=== PATIENT | male | born 1950 | race Caucasian/White ===

== ENCOUNTER 2017-02-14 10:46 | Day surgery (SDC) | payer OTHER, MEDICARE ==
[2017-02-14 11:28] LABS: ABSOLUTE BASOPHILS # (AUTO) 0.1 10^3/uL (0.0-0.2); ABSOLUTE EOSINOPHILS # (AUTO) 0.2 10^3/uL (0.0-0.6); ABSOLUTE LYMPHOCYTES (AUTO) 1.6 10^3/uL (0.5-4.7); ABSOLUTE MONOCYTES (AUTO) 0.6 10^3/uL (0.1-1.4); ABSOLUTE NEUT (AUTO) 2.7 10^3/uL (1.7-8.2); EOSINOPHILS % (AUTO) 3.2 % (0-6); HEMATOCRIT 42.9 % (37.9-51.0); HEMOGLOBIN 14.9 g/dL (13.5-17.0); HGB HCT DIFFERENCE 1.8; LYMPHOCYTES % (AUTO) 30.8 % (13-45); MEAN CORPUSCULAR HEMOGLOBIN 34.8 pg (27.0-33.4); MEAN CORPUSCULAR HGB CONC 34.7 g/dL (32.0-36.0); MEAN CORPUSCULAR VOLUME 100 fl (80-97); MONOCYTES % (AUTO) 11.3 % (3-13); RED BLOOD COUNT 4.27 10^6/uL (4.35-5.55); RED CELL DISTRIBUTION WIDTH 14.3 % (11.5-14.0); SEGMENTED NEUTROPHILS % (AUTO) 53.7 % (42-78); WHITE BLOOD COUNT 5.1 10^3/uL (4.0-10.5)
[2017-02-14 11:35] LABS: PROTHROMBIN TIME 13.1 SEC (11.4-15.4)
[2017-02-14 11:36] LABS: PARTIAL THROMBOPLASTIN TIME 34.4 SEC (23.5-35.8)
[2017-02-14 11:42] LABS: BLOOD UREA NITROGEN 10 mg/dL (7-20); CREATINE KINASE 77 U/L (55-170)
[2017-02-14 12:20] LABS: CREATININE RESULT 0.79 mg/dL (0.52-1.25)
[2017-02-14] MEDS ORDERED: MIDAZOLAM 2 MG/2 ML INJ ONE (13:29)
[2017-02-14] MEDS ORDERED: FENTANYL CITRATE INJ/PF 100 MCG/2 ML AMPUL ONE (13:29)
--- NOTE | 2017-02-14 14:38 | RADIOLOGY REPORT (SQ) ---
EXAM DESCRIPTION: CHEST SINGLE VIEW COMPLETED DATE/TIME: 02/14/2017 2:11 pm REASON FOR STUDY: POST LEFT LUNG BIOPSY COMPARISON: CT lung biopsy same date EXAM PARAMETERS: NUMBER OF VIEWS: One view. TECHNIQUE: Single frontal radiographic view of the chest acquired. RADIATION DOSE: NA LIMITATIONS: None. FINDINGS: LUNGS AND PLEURA: 6 cm left upper lobe mass is present. No pneumothorax immediately post left lung biopsy. Right lung well inflated and clear. No right or left pleural effusion. No acute infiltrates. MEDIASTINUM AND HILAR STRUCTURES: No masses. Contour normal. HEART AND VASCULAR STRUCTURES: Heart normal in size. Normal vasculature. BONES: No acute findings. HARDWARE: None in the chest. OTHER: No other significant finding. IMPRESSION: Immediate post left upper lobe mass CT-guided biopsy. No pneumothorax. TECHNICAL DOCUMENTATION: JOB ID: [id number]
--- NOTE | 2017-02-14 15:30 | RADIOLOGY REPORT (SQ) ---
EXAM DESCRIPTION: CT BIOPSY LUNG/MEDIASTINUM; CT NEEDLE PLACEMENT COMPLETED DATE/TIME: 02/14/2017 1:54 pm REASON FOR STUDY: ABNORMAL FINDING ON LUNG FIELD; LUNG BIOPSY R91.8 OTHER NONSPECIFIC ABNORMAL FIND ING OF LUNG FIELD COMPARISON: None. TECHNIQUE: CT guided biopsy of the left upper lobe mass performed with conscious sedation. CT Fluoroscopy Time: 11.[address] scanners at this facility use dose modulation, iterative reconstruction, and/or weight based d osing when appropriate to reduce radiation dose to as low as reasonably achievable (ALARA). [facility]: Dose Right [facility]: CareDose [facility]: Dose Right [facility]: Teradose 4D [facility]: [employer] RADIATION DOSE: 80 mGy. FINDINGS: The procedure was discussed with the patient and the patient agreed to the procedure. Prio r to the procedure, a time out was performed to verify the patient's identity and planned procedure. IV sedation was administered and physician direction by the registered nurse using 0.5 milligrams of Versed and 50 micrograms of fentanyl. Physiologic monitoring was provided before, during, and after s edation. The total sedation time was 30 minutes. Documentation face to face time, the performing proceduralist, spent monitoring the patient: [address] scanning was performed to localize the percutaneous site for the biopsy approach. After sterile skin prep and local lidocaine for skin and deep tissue anesthesia, a coaxial biopsy nee dle was used to obtain multiple cores of tissue. Biopsy tract was embolized with a Biosentry closure device The biopsy tissue was submitted to the lab in formalin. There were no immediate complications. Pathology is pending at the time of dictation. IMPRESSION: CT GUIDED BIOPSY OF THE LEFT UPPER LOBE MASS PERFORMED WITHOUT IMMEDIATE COMPLICATION. PATHOLOGY PENDING. COMMENT: Quality ID 145: Final reports for procedures using fluoroscopy that document radiation exp osure indices, or exposure time and number of fluorographic images (if radiation exposure indices are not available) Patient medication list reviewed: Yes- Quality ID# [id number]:Eligible professional attests to documenting i n the medical record they obtained, updated, or reviewed the patient's current medications.. TECHNICAL DOCUMENTATION: JOB ID: [id number] Quality ID# 436: Final reports with documentation of one or more dose reduction techniques (e.g., Aut omated exposure control, adjustment of the mA and/or kV according to patient size, use of iterative r econstruction technique) 2010 [facility] [employer]- All Rights Reserved
--- NOTE | 2017-02-14 15:30 | RADIOLOGY REPORT (SQ) ---
EXAM DESCRIPTION: CT BIOPSY LUNG/MEDIASTINUM; CT NEEDLE PLACEMENT COMPLETED DATE/TIME: 02/14/2017 1:54 pm REASON FOR STUDY: ABNORMAL FINDING ON LUNG FIELD; LUNG BIOPSY R91.8 OTHER NONSPECIFIC ABNORMAL FIND ING OF LUNG FIELD COMPARISON: None. TECHNIQUE: CT guided biopsy of the left upper lobe mass performed with conscious sedation. CT Fluoroscopy Time: 11.[address] scanners at this facility use dose modulation, iterative reconstruction, and/or weight based d osing when appropriate to reduce radiation dose to as low as reasonably achievable (ALARA). [facility]: Dose Right [facility]: CareDose [facility]: Dose Right [facility]: Teradose 4D [facility]: [employer] RADIATION DOSE: 80 mGy. FINDINGS: The procedure was discussed with the patient and the patient agreed to the procedure. Prio r to the procedure, a time out was performed to verify the patient's identity and planned procedure. IV sedation was administered and physician direction by the registered nurse using 0.5 milligrams of Versed and 50 micrograms of fentanyl. Physiologic monitoring was provided before, during, and after s edation. The total sedation time was 30 minutes. Documentation face to face time, the performing proceduralist, spent monitoring the patient: [address] scanning was performed to localize the percutaneous site for the biopsy approach. After sterile skin prep and local lidocaine for skin and deep tissue anesthesia, a coaxial biopsy nee dle was used to obtain multiple cores of tissue. Biopsy tract was embolized with a Biosentry closure device The biopsy tissue was submitted to the lab in formalin. There were no immediate complications. Pathology is pending at the time of dictation. IMPRESSION: CT GUIDED BIOPSY OF THE LEFT UPPER LOBE MASS PERFORMED WITHOUT IMMEDIATE COMPLICATION. PATHOLOGY PENDING. COMMENT: Quality ID 145: Final reports for procedures using fluoroscopy that document radiation exp osure indices, or exposure time and number of fluorographic images (if radiation exposure indices are not available) Patient medication list reviewed: Yes- Quality ID# [id number]:Eligible professional attests to documenting i n the medical record they obtained, updated, or reviewed the patient's current medications.. TECHNICAL DOCUMENTATION: JOB ID: [id number] Quality ID# 436: Final reports with documentation of one or more dose reduction techniques (e.g., Aut omated exposure control, adjustment of the mA and/or kV according to patient size, use of iterative r econstruction technique) 2010 [facility] [employer]- All Rights Reserved
[2017-02-14 16:53] VITALS: BP 138/59
--- NOTE | 2017-02-14 17:12 | RADIOLOGY REPORT (SQ) ---
EXAM DESCRIPTION: CHEST SINGLE VIEW COMPLETED DATE/TIME: 02/14/2017 4:22 pm REASON FOR STUDY: POST LEFT LUNG BIOPSY--- 2 HR FILM COMPARISON: 02/04/2017, 1411 hours EXAM PARAMETERS: NUMBER OF VIEWS: One view. TECHNIQUE: Single frontal radiographic view of the chest acquired. RADIATION DOSE: NA LIMITATIONS: None. FINDINGS: LUNGS AND PLEURA: No pneumothorax 2 hours post left lung biopsy. Stable 6 cm mass left up per lobe. Right lung clear. No right or left pleural effusion MEDIASTINUM AND HILAR STRUCTURES: No masses. Contour normal. HEART AND VASCULAR STRUCTURES: Heart normal in size. Normal vasculature. BONES: No acute findings. HARDWARE: None in the chest. OTHER: No other significant finding. IMPRESSION: No pneumothorax 2 hours post left lung biopsy TECHNICAL DOCUMENTATION: JOB ID: [id number]
== END 2017-02-14 17:25 | disposition home or self-care (01) ==
LOC: RAD 10:46
PROVIDERS: ATTEND Internal Medicine Pulmonary Disease
PROC: 0BBJ3ZX Excision of Left Lower Lung Lobe, Percutaneous Approach, Diagnostic (ICD-10-PCS; principal; 2017-02-14)
DX: C34.12 Malignant neoplasm of upper lobe, left bronchus or lung (principal); R06.02 Shortness of breath; I10 Essential (primary) hypertension; Z87.891 Personal history of nicotine dependence
CPT/HCPCS: 36415; 84520; 82550; 82565; 85025; 85610; 85730; 88342 ×2; 88341 ×2; 88305 ×2; 88313 ×2; 71010; 77012; 32405; J2250; J3010

== ENCOUNTER → 2017-02-19 | Outpatient (CLI) | payer OTHER ==
--- NOTE | 2017-02-20 11:49 | RADIOLOGY REPORT (SQ) ---
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 TECHNIQUE: Blood glucose level was verified. Above dose of FDG was injected intravenously. 2-D seg mented attenuation correction images were obtained through the entire body. Noncontrast CT images we re obtained for attenuation correction and fusion with emission images. CT images were performed wit hout oral or intravenous contrast and are not sensitive for parenchymal lesions. A series of overlap ping emission PET images were obtained. Images reviewed and manipulated at independent work station by the radiologist. Images stored on PACS. LIMITATIONS: None. FINDINGS: HEAD AND NECK: No areas of abnormal metabolic activity in the soft tissues of the head and neck. CHEST: Previously biopsied left upper lobe mass measures 4.6 x 3.5 cm on today's PET-CT exam with an SUV of 24. There are multiple non metabolic less than 7 mm short axis precarinal, right and left paratracheal, a ortopulmonary window, and sub- carinal lymph nodes. Small bilateral axillary lymph nodes are as follows: Right axilla 2 x 0.9 cm node axial image 115, SUV 1.7. Left axilla high lymph node, axial image 96, 1.6 x 0.8 cm in size with SUV 1.7 Left axilla high lymph node axial image 104, and 1.1 x 0.9 cm in size SUV of 1.3. Left mid axillary lymph node 2.7 x 0.8 cm axial image 110, SUV 2.5 ABDOMEN AND PELVIS: No areas of abnormal metabolic activity in the abdomen or pelvis. Expected physi ologic activity is present in the genitourinary system and bowel. LOWER EXTREMITIES: No areas of abnormal metabolic activity in the soft tissues of the lower extremiti es. BONES: No abnormal metabolic activity in the visualized skeleton. However, there is bilateral osteoa rthritis at both shoulders with diffuse synovial uptake with SUV of 3.0. ADDITIONAL CT FINDINGS: Opacified right sphenoid sinus. Calcified left carotid bifurcation. Calcifi ed aortic valve. Minimal coronary artery calcifications. 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 Pole umbilical hernia repair. OTHER: Liver background activity 2.0 SUV. Blood pool background activity 1.7 SUV. IMPRESSION: Malignant left upper lobe mass with SUV of 24. This was previously biopsied No hypermetabolic mediastinal lymph nodes Bilateral axillary lymph nodes with SUV at or just above baseline, nonspecific. Bilateral shoulder s ynovial activity worrisome for osteoarthritis TECHNICAL DOCUMENTATION: JOB ID: [id number] [employer] All Rights Reserved
== END ==
LOC: RAD 15:46
PROVIDERS: ATTEND Internal Medicine
DX: R91.8 Other nonspecific abnormal finding of lung field (principal)
CPT/HCPCS: 78816; A9552

== ENCOUNTER → 2017-02-24 | Outpatient (CLI) | payer MEDICARE ==
--- NOTE | 2017-02-24 13:14 | RADIOLOGY REPORT (SQ) ---
EXAM DESCRIPTION: CT CHEST WITH COMPLETED DATE/TIME: 02/24/2017 12:36 pm REASON FOR STUDY: LUNG MASS R91.8 OTHER NONSPECIFIC ABNORMAL FINDING OF LUNG FIELD COMPARISON: Images from CT biopsy dated 02/14/2017 and PET-CT dated 02/19/2017. TECHNIQUE: CT scan of the chest performed using helical scanning technique with dynamic intravenous contrast injection. Images reviewed with lung, soft tissue and bone windows. Reconstructed coronal and sagittal MPR images reviewed. All images stored on PACS. All CT scanners at this facility use dose modulation, iterative reconstruction, and/or weight based d osing when appropriate to reduce radiation dose to as low as reasonably achievable (ALARA). [facility]: Dose Right [facility]: CareDose [facility]: Dose Right [facility]: Teradose 4D [facility]: [email or web address] CONTRAST TYPE AND DOSE: contrast/concentration: Isovue 370.00 mg/ml; Total Contrast Delivered: 80.0 ml; Total Saline Delivered: 32.0 ml RENAL FUNCTION: BUN 10 creatinine 0.79. RADIATION DOSE: Up-to-date CT equipment and radiation dose reduction techniques were employed. CTDIv ol: 12.2 mGy. DLP: 487 mGy-cm. . LIMITATIONS: None. FINDINGS: LUNGS AND PLEURA: Recently biopsied mass in the lateral left upper lobe unchanged. No new nodules or masses. No infiltrates. No pleural effusion or pneumothorax. Scattered emphysematous c hanges. HILAR AND MEDIASTINAL STRUCTURES: Subcentimeter paratracheal and hilar lymph nodes unchanged. HEART AND VASCULAR STRUCTURES: No aneurysm or dissection. No central pulmonary emboli. No pericardi al effusion. HARDWARE: None in the chest. UPPER ABDOMEN: No significant findings. Limited exam. THYROID AND OTHER SOFT TISSUES: No masses. No adenopathy. BONES: No significant finding. OTHER: Axillary lymph nodes with discrete fatty cr, unchanged. IMPRESSION: STABLE APPEARANCE OF THE CHEST. NO CHANGE IN THE MASS IN THE LEFT UPPER LOBE. NONPATHO LOGIC APPEARING LYMPH NODES ALSO UNCHANGED. TECHNICAL DOCUMENTATION: JOB ID: [id number] Quality ID # 436: Final reports with documentation of one or more dose reduction techniques (e.g., Au tomated exposure control, adjustment of the mA and/or kV according to patient size, use of iterative reconstruction technique) 2010 [employer]- All Rights Reserved
== END ==
LOC: RAD 12:06
PROVIDERS: ATTEND Thoracic Surgery (Cardiothoracic Vascular Surgery)
DX: R91.8 Other nonspecific abnormal finding of lung field (principal); R91.1 Solitary pulmonary nodule
CPT/HCPCS: 71260; 82565

== ENCOUNTER 2017-04-11 10:23 | Day surgery (SDC) | payer MEDICARE, OTHER ==
[~2017-04-11 10:23] MED LIST: DIAZEPAM 5 MG TABLET PO PRN; OXYCODONE-ACETAMINOPHEN 5-325 MG TABLET PO PRN
--- NOTE | 2017-04-11 11:13 | RADIOLOGY REPORT (SQ) ---
EXAM DESCRIPTION: CHEST SINGLE VIEW COMPLETED DATE/TIME: 04/11/2017 10:55 am REASON FOR STUDY: PREOP COMPARISON: CT February 24 chest x-ray February 14 EXAM PARAMETERS: NUMBER OF VIEWS: One view. TECHNIQUE: Single frontal radiographic view of the chest acquired. RADIATION DOSE: NA LIMITATIONS: None. FINDINGS: LUNGS AND PLEURA: Once again there is a large mass in the left upper lobe that abuts the p leural laterally. Ill-defined opacification medial right base. MEDIASTINUM AND HILAR STRUCTURES: No masses. Contour normal. HEART AND VASCULAR STRUCTURES: Heart normal in size. Normal vasculature. BONES: No acute findings. HARDWARE: None in the chest. OTHER: No other significant finding. IMPRESSION: Pulmonary mass. Cannot exclude limited right lower lobe pneumonia. TECHNICAL DOCUMENTATION: JOB ID: [id number] [email or web address]- All Rights Reserved
[2017-04-11 11:25] LABS: HEMATOCRIT 42.3 % (37.9-51.0); HEMOGLOBIN 14.1 g/dL (13.5-17.0); MEAN CORPUSCULAR HEMOGLOBIN 33.3 pg (27.0-33.4); MEAN CORPUSCULAR HGB CONC 33.4 g/dL (32.0-36.0); MEAN CORPUSCULAR VOLUME 100 fl (80-97); RED BLOOD COUNT 4.24 10^6/uL (4.35-5.55); RED CELL DISTRIBUTION WIDTH 14.1 % (11.5-14.0); WHITE BLOOD COUNT 20.8 10^3/uL (4.0-10.5)
[2017-04-11 11:49] LABS: ANION GAP 11 (5-19); BLOOD UREA NITROGEN 50 mg/dL (7-20); CALCIUM 7.9 mg/dL (8.4-10.2); CARBON DIOXIDE 18 mmol/L (22-30); CHLORIDE 100 mmol/L (98-107); CREATININE RESULT 1.55 mg/dL (0.52-1.25); GLUCOSE 94 mg/dL (75-110); POTASSIUM 5.5 mmol/L (3.6-5.0); SODIUM 129.1 mmol/L (137-145)
[2017-04-11 14:18] LABS: TROPONIN I < 0.012 ng/mL
[2017-04-11 15:22] VITALS: BP 92/58
--- NOTE | 2017-04-11 22:45 | EKG REPORT ---
SEVERITY:- NORMAL ECG - SINUS RHYTHM : Confirmed by: Trisha Juarez 11-Apr-2017 22:45:10
== END 2017-04-11 14:15 | disposition home or self-care (01) ==
LOC: CCL 10:23
PROVIDERS: ATTEND Surgery
DX: C34.12 Malignant neoplasm of upper lobe, left bronchus or lung (principal); I10 Essential (primary) hypertension; Z53.9 Procedure and treatment not carried out, unspecified reason; I63.9 Cerebral infarction, unspecified; K85.90 Acute pancreatitis without necrosis or infection, unspecified; I25.2 Old myocardial infarction; Z87.891 Personal history of nicotine dependence; Z79.82 Long term (current) use of aspirin; Z79.899 Other long term (current) drug therapy; Z86.73 Personal history of transient ischemic attack (TIA), and cerebral infarction without residual deficits
CPT/HCPCS: 36415; 71010; 80048; 82550; 82553; 84484; 85027; 93005; 93010

== ENCOUNTER 2017-04-23 21:24 | Inpatient (IN) | payer MEDICARE, OTHER ==
[2017-04-23] MEDS ORDERED: NORMAL SALINE 1000 ML 1,000 ML IV PRN (21:38)
[2017-04-23] MEDS ORDERED: NORMAL SALINE 1000 ML 1,000 ML IV ONE (21:38)
--- NOTE | 2017-04-23 21:41 | ER Document Report ---
ED General - General Stated Complaint: WEAKNESS Time Seen by Provider: 04/23/17 21:33 Mode of Arrival: Stretcher Information source: Patient Notes: 66 years old male with lung cancer, metastatic lesion in the brain, hypertension , took all of his medicines today went to the bathroom and felt lightheaded and almost passed out, the heard a noise when the maintain he was sitting on the bathroom complaining of dizziness. Unable to get up called the EMS and EMS brought him to the ED. He was cold and clammy. Confused. Could not get any detailed history from him. When asked upon denies any headache denies any chest pain or difficulty in breathing. Denies any other constitutional symptoms. TRAVEL OUTSIDE OF THE [place] IN LAST 30 DAYS: No - Related Data Allergies/Adverse Reactions: No Known Allergies Allergy (Unverified 02/14/17 11:05) Home Medications: Current Home Medications Amlodipine Besylate [Norvasc 10 mg Tablet] 10 mg PO DAILY 04/24/17 [History] Aspirin [Adult Low Dose Aspirin EC] 81 mg PO DAILY 04/24/17 [History] Diclofenac Sodium [Voltaren 50 mg Tablet.dr] 50 mg PO DAILY 04/24/17 [History] Levetiracetam [Keppra 500 mg Tablet] 500 mg PO BID 04/24/17 [History] Lisinopril [Zestril] 20 mg PO DAILY 04/24/17 [History] Ondansetron HCl [Zofran 8 mg Tablet] 8 mg PO Q8HP PRN 04/24/17 [History] Promethazine HCl [Phenergan 25 mg Tablet] 25 mg PO Q4HP PRN 04/24/17 [History] Propranolol HCl [Inderal LA] 60 mg PO DAILY 04/24/17 [History] Temazepam [Restoril 15 mg Capsule] 15 mg PO QPM 04/24/17 [History] Past Medical History - General Information source: Patient - Social History Smoking Status: Smoker,Current Status Unk Family History: Reviewed & Not Pertinent - Past Medical History Cardiac Medical History: Reports: Hx Coronary Artery Disease, Hx Heart Attack - 10 years ago, Hx Hypertension Pulmonary Medical History: Reports: Hx Asthma - A CHILD Denies: Hx Bronchitis, Hx COPD, Hx Pneumonia Neurological Medical History: Reports: Hx Cerebrovascular Accident - 10 years ago, RIGHT SIDED WEAKNESS, DIFFICULTY SPEAKING. Denies: Hx Seizures Musculoskeltal Medical History: Reports Hx Arthritis - Right Hip, Bilat Hands - Immunizations Hx Diphtheria, Pertussis, Tetanus Vaccination: Yes Review of Systems - Review of Systems -: Yes ROS unobtainable due to patient's medical condition Physical Exam - Vital signs Vitals: Temp BP 101.8 F H 90/50 L 04/23/17 21:42 04/23/17 21:42 - Notes Notes: PHYSICAL EXAMINATION: GENERAL: Appearing septic, diaphoretic, confused, HEAD: Atraumatic, normocephalic. EYES: Pupils equal round and reactive to light, extraocular movements intact, sclera anicteric, conjunctiva are normal. ENT: Nares patent, oropharynx clear without exudates. Moist mucous membranes. NECK: Normal range of motion, supple without lymphadenopathy LUNGS: Distant breath sound could not hear any obvious rales or wheezes HEART: Regular rate and rhythm without murmurs ABDOMEN: Soft, nontender, nondistended abdomen. No guarding, no rebound. No masses appreciated. Musculoskeletal: Normal range of motion, no pitting or edema. No cyanosis. NEUROLOGICAL: Alert oriented 2, no obvious cranial nerve weakness noted, plantars were downgoing. PSYCH: Normal mood, normal affect. SKIN: Warm, Dry, normal turgor, no rashes or lesions noted. Course - Re-evaluation Re-evalutation: 04/24/17 01:02 Patient was evaluated multiple times, started on IV norepinephrine to maintain the blood pressure Potassium was elevated therefore given insulin plus D50 - Vital Signs Vital signs: Temp Pulse Resp BP Pulse Ox 98.8 F 102 H 21 H 100/61 96 04/25/17 16:00 04/25/17 16:00 04/25/17 16:00 04/25/17 16:00 04/25/17 16:00 - Laboratory Result Diagrams: 04/25/17 03:52 04/25/17 03:52 Laboratory results interpreted by me: 04/23/17 04/23/17 04/23/17 21:31 21:31 23:30 WBC 0.7 L* RBC 3.20 L Hgb 10.7 L Hct 32.4 L MCV 101 H RDW 14.1 H Seg Neuts % (Manual) 8 L Lymphocytes % (Manual) 80 H Abs Neuts (Manual) 0.1 L Abs Monocytes (Manual) 0.0 L Sodium 130.5 L Potassium 6.2 H* Carbon Dioxide 16 L BUN 43 H Creatinine 1.69 H Est GFR ( Amer) 50 L Est GFR (Non-Af Amer) 41 L Glucose 174 H Calcium 8.1 L Total Bilirubin 1.4 H Direct Bilirubin 0.8 H AST 14 L ALT 18 L Creatine Kinase < 20 L Total Protein 5.1 L Albumin 2.4 L Urine Urobilinogen 04/24/17 00:50 WBC RBC Hgb Hct MCV RDW Seg Neuts % (Manual) Lymphocytes % (Manual) Abs Neuts (Manual) Abs Monocytes (Manual) Sodium Potassium Carbon Dioxide BUN Creatinine Est GFR ( Amer) Est GFR (Non-Af Amer) Glucose Calcium Total Bilirubin Direct Bilirubin AST ALT Creatine Kinase Total Protein Albumin Urine Urobilinogen 2.0 H - Diagnostic Test Radiology reviewed: Reports reviewed - CT report by radiologist reviewed, chest x-ray read by radiologist reviewed, indicates persistent mass on the right side as well as patchy infiltration suggestive of pneumonia. - EKG Interpretation by Dc EKG shows normal: Sinus rhythm - Sinus rhythm at the rate of 79 bpm normal axis no acute ST elevation ST depression T-wave inversion noted. Normal cardiogram Critical Care Note - Critical Care Note Total time excluding time spent on procedures (mins): 60 Comments: Hypotension, pneumonia, hyperkalemia, review of EKG Discharge - Discharge Clinical Impression: Hyperkalemia Pneumonia Qualifiers: Pneumonia type: aspiration pneumonia Aspiration pneumonia type: unspecified Laterality: right Lung location: lower lobe of lung Qualified Code(s): J69.0 - Pneumonitis due to inhalation of food and vomit Hypotension Qualifiers: Hypotension type: idiopathic hypotension Qualified Code(s): I95.0 - Idiopathic hypotension Neutropenia Qualifiers: Neutropenia type: secondary to cancer chemotherapy Qualified Code(s): D70.1 - Agranulocytosis secondary to cancer chemotherapy Lung cancer, lower lobe Qualifiers: Laterality: right Qualified Code(s): C34.31 - Malignant neoplasm of lower lobe , right bronchus or lung Disposition: ADMITTED INPATIENT Admitting Provider: Hospitalist Unit Admitted: ICU
[2017-04-23 21:50] LABS: VENOUS BLOOD BASE EXCESS -5.8 mmol/L; VENOUS BLOOD HCO3 20.3 mmol/L (20-32); VENOUS BLOOD PCO2 42.4 mmHg (35-63); VENOUS BLOOD PH 7.3 (7.30-7.42)
[2017-04-23] MEDS ORDERED: ACETAMINOPHEN 325 MG TABLET PO ONE (21:55)
[2017-04-23 22:01] LABS: INTERNATIONAL RATION (INR) 1.02; PROTHROMBIN TIME 14.1 SEC (11.4-15.4)
[2017-04-23 22:02] LABS: HEMATOCRIT 32.4 % (37.9-51.0); HEMOGLOBIN 10.7 g/dL (13.5-17.0); MEAN CORPUSCULAR HEMOGLOBIN 33.4 pg (27.0-33.4); MEAN CORPUSCULAR VOLUME 101 fl (80-97); PLATELET COUNT 163 10^3/uL (150-450); RED CELL DISTRIBUTION WIDTH 14.1 % (11.5-14.0)
--- NOTE | 2017-04-23 22:18 | RADIOLOGY REPORT (SQ) ---
EXAM DESCRIPTION: CT HEAD WITHOUT COMPLETED DATE/TIME: 04/23/2017 9:59 pm REASON FOR STUDY: Metastatic lung cancer COMPARISON: MRI dated 03/03/2017. TECHNIQUE: Axial images acquired through the brain without intravenous contrast. Images reviewed wi th bone, brain and subdural windows. Images stored on PACS. All CT scanners at this facility use dose modulation, iterative reconstruction, and/or weight based d osing when appropriate to reduce radiation dose to as low as reasonably achievable (ALARA). [facility]: Dose Right [facility]: CareDose [facility]: Dose Right [facility]: Teradose 4D [facility]: [employer] RADIATION DOSE: CT Rad equipment meets quality standard of care and radiation dose reduction techniq ues were employed. CTDIvol: 64.6 mGy. DLP: 1163 mGy-cm. mGy. LIMITATIONS: None. FINDINGS: VENTRICLES: Prominent. CEREBRUM: 1.3 cm mass in the left frontal lobe with vasogenic edema in the adjacent white matter. No hemorrhage. No midline shift. Areas of low density in the white matter most likely due to chronic micro-vascular ischemic change. Old lacunar infarcts. No evidence for acute infarction. CEREBELLUM: No masses. No hemorrhage. No alteration of density. Stable old infarct in the right ce rebellum. No evidence for acute infarction. EXTRAAXIAL SPACES: Mild age-related involutional change. No fluid collections. No masses. ORBITS AND GLOBE: No intra- or extraconal masses. Normal contour of globe without masses. CALVARIUM: No fracture. PARANASAL SINUSES: Mucous membrane thickening and soft tissue in the right maxillary and sphenoid and bilateral ethmoid sinuses. SOFT TISSUES: No mass or hematoma. OTHER: No other significant finding. IMPRESSION: 1. MASS IN THE LEFT CEREBRAL HEMISPHERE WITH VASOGENIC EDEMA IN THE ADJACENT WHITE MATTER. SIMILAR A PPEARANCE TO THE PREVIOUS MRI. 2. MILD ATROPHY AND WHITE MATTER CHANGE CONSISTENT WITH CHRONIC MICROVASCULAR ISCHEMIA. OLD LACUNAR INFARCTS. NO ACUTE FINDINGS. 3. SINUS DISEASE. EVIDENCE OF ACUTE STROKE: NO. TECHNICAL DOCUMENTATION: JOB ID: [id number] Quality ID # [id number]: Final reports with documentation of one or more dose reduction techniques (e.g., Au tomated exposure control, adjustment of the mA and/or kV according to patient size, use of iterative reconstruction technique) 2010 [employer]- All Rights Reserved
--- NOTE | 2017-04-23 22:19 | RADIOLOGY REPORT (SQ) ---
EXAM DESCRIPTION: CHEST SINGLE VIEW COMPLETED DATE/TIME: 04/23/2017 10:02 pm REASON FOR STUDY: Difficulty in breathing COMPARISON: 04/11/2017. EXAM PARAMETERS: NUMBER OF VIEWS: One view. TECHNIQUE: Single frontal radiographic view of the chest acquired. RADIATION DOSE: NA LIMITATIONS: None. FINDINGS: LUNGS AND PLEURA: Mass in the left lung unchanged. Patchy density in the right lower lobe . No pleural effusion or pneumothorax. MEDIASTINUM AND HILAR STRUCTURES: No masses. Contour normal. HEART AND VASCULAR STRUCTURES: Heart normal in size. Normal vasculature. BONES: No acute findings. HARDWARE: None in the chest. OTHER: No other significant finding. IMPRESSION: MASS IN THE LEFT LUNG UNCHANGED. PATCHY DENSITY IN THE RIGHT LOWER LOBE SUSPICIOUS FOR PNEUMONIA. TECHNICAL DOCUMENTATION: JOB ID: [id number] [employer]- All Rights Reserved
[2017-04-23 22:44] LABS: ABSOLUTE LYMPHOCYTES# (MANUAL) 0.6 10^3/uL (0.5-4.7); ABSOLUTE NEUTROPHILS# (MANUAL) 0.1 10^3/uL (1.7-8.2); BASOPHILS % (MANUAL) 0 % (0-2); EOSINOPHILS % (MANUAL) 0 % (0-6); MONOCYTES % (MANUAL) 4 % (3-13); SEGMENTED NEUTROPHILS % (MAN) 8 % (42-78); TOTAL CELLS COUNTED 50
[2017-04-23 22:47] LABS: PLATELET CLUMPS PRESENT; PLATELET COMMENT ADEQUATE
[2017-04-23 22:51] LABS: LYMPHOCYTES % (MANUAL) 80 % (13-45)
[2017-04-23 22:54] LABS: WHITE BLOOD COUNT 0.7 10^3/uL (4.0-10.5)
[2017-04-23] MEDS ORDERED: DEXTROSE 5%-WATER 250 ML with NOREPINEPHRINE BITARTRATE 4 MG IV PRN ×2 (23:04)
[2017-04-23] MEDS ORDERED: NOREPINEPHRINE BITARTRATE INJ/PF 4 MG/4 ML SDV IV ONE (23:04)
[2017-04-23] MEDS ORDERED: PIPERACILLIN/TAZOBACTAM 3.375 GM VIAL IV ONE (23:06)
[2017-04-23] MEDS ORDERED: VANCOMYCIN HCL INJ 1000 MG VIAL IV ONE (23:06)
[2017-04-23 23:57] LABS: ALANINE AMINOTRANSFERASE 18 U/L (21-72); ALBUMIN 2.4 g/dL (3.5-5.0); ALKALINE PHOSPHATASE 100 U/L (38-126); ANION GAP 8 (5-19); ASPARTATE AMINO TRANSFERASE 14 U/L (17-59); BILIRUBIN,DIRECT 0.8 mg/dL (0.0-0.4); BILIRUBIN,TOTAL 1.4 mg/dL (0.2-1.3); BLOOD UREA NITROGEN 43 mg/dL (7-20); CALCIUM 8.1 mg/dL (8.4-10.2); CARBON DIOXIDE 16 mmol/L (22-30); CHLORIDE 107 mmol/L (98-107); GLUCOSE 174 mg/dL (75-110); SODIUM 130.5 mmol/L (137-145); TOTAL PROTEIN 5.1 g/dL (6.3-8.2)
[2017-04-24 00:12] LABS: POTASSIUM 6.2 mmol/L (3.6-5.0)
[2017-04-24] MEDS ORDERED: INSULIN REG, HUMAN 100 UNIT/ML 3 ML VIAL (PYX) IV ONE (00:50)
[2017-04-24] MEDS ORDERED: DEXTROSE 50%-WATER 25 GM/50 ML DISP.SYRIN IV ONE (00:50)
[2017-04-24] MEDS ORDERED: SODIUM POLYSTYRENE SULFONATE 15 GM/60 ML PO ONE (00:51)
[2017-04-24] MEDS ORDERED: CALCIUM GLUCONATE 1,000 MG in DEXTROSE 5%-WATER 50 ML IV ONE (01:15)
[2017-04-24] MEDS ORDERED: IPRATROPIUM/ALBUTEROL 0.5-2.5 MG/3 ML AMPUL NEB ONE (01:15)
[2017-04-24] MEDS ORDERED: HYDROCORTISONE SOD SUCCINATE INJ/PF 100 MG/2 ML SDV IV ONE (01:15)
[2017-04-24] MEDS ORDERED: IPRATROPIUM/ALBUTEROL 0.5-2.5 MG/3 ML AMPUL NEB PRN (01:16)
[2017-04-24] MEDS ORDERED: LACTULOSE SYRUP 20 GM/30 ML UDCUP PO ONE (01:19)
[2017-04-24 01:26] LABS: APPEARANCE,URINE CLEAR; BILIRUBIN,URINE NEGATIVE (NEGATIVE); COLOR,URINE YELLOW; GLUCOSE, URINE NEGATIVE (NEGATIVE); KETONES,URINE NEGATIVE (NEGATIVE); LEUKOCYTE ESTERASE,URINE NEGATIVE (NEGATIVE); NITRITE,URINE NEGATIVE (NEGATIVE); PROTEIN,URINE NEGATIVE (NEGATIVE); URINE SPECIFIC GRAVITY 1.009
[2017-04-24] MEDS ORDERED: VANCOMYCIN HCL 0 MG in DEXTROSE 5%-WATER 250 ML IV NR (01:30)
[2017-04-24] MEDS ORDERED: CALCIUM GLUCONATE 1000 MG/10 ML INJ IV PRN (01:32)
[2017-04-24] MEDS ORDERED: VANCOMYCIN HCL INJ 500 MG VIAL IV PRN (01:34)
[2017-04-24] MEDS ORDERED: VANCOMYCIN HCL 750 MG in DEXTROSE 5%-WATER 250 ML IV ONE (01:45)
[2017-04-24] MEDS: NORMAL SALINE 1000 ML 1,000 ML IV SCH ×2 (02:32→06:27)
[2017-04-24] MEDS: IPRATROPIUM/ALBUTEROL 0.5-2.5 MG/3 ML AMPUL NEB SCH ×4 (02:47→19:40)
[2017-04-24] MEDS ORDERED: NOREPINEPHRINE BITARTRATE INJ/PF 4 MG/4 ML SDV IV ONE (04:29)
[2017-04-24] MEDS: DEXTROSE 5%-WATER 250 ML with NOREPINEPHRINE BITARTRATE 4 MG IV PRN ×4 (04:37→10:45)
[2017-04-24 04:59] LABS: HEMATOCRIT 30.4 % (37.9-51.0); HEMOGLOBIN 10.1 g/dL (13.5-17.0); MEAN CORPUSCULAR HEMOGLOBIN 33.9 pg (27.0-33.4); MEAN CORPUSCULAR HGB CONC 33.4 g/dL (32.0-36.0); MEAN CORPUSCULAR VOLUME 102 fl (80-97); PLATELET COUNT 156 10^3/uL (150-450); RED BLOOD COUNT 2.99 10^6/uL (4.35-5.55); RED CELL DISTRIBUTION WIDTH 14.1 % (11.5-14.0)
[2017-04-24 05:11] LABS: WHITE BLOOD COUNT 0.6 10^3/uL (4.0-10.5)
[2017-04-24 05:34] LABS: ALANINE AMINOTRANSFERASE 18 U/L (21-72); ALBUMIN 2.6 g/dL (3.5-5.0); ALKALINE PHOSPHATASE 118 U/L (38-126); ANION GAP 10 (5-19); ASPARTATE AMINO TRANSFERASE 20 U/L (17-59); BILIRUBIN,DIRECT 1.5 mg/dL (0.0-0.4); BILIRUBIN,TOTAL 2.2 mg/dL (0.2-1.3); BLOOD UREA NITROGEN 38 mg/dL (7-20); CALCIUM 8.3 mg/dL (8.4-10.2); CARBON DIOXIDE 18 mmol/L (22-30); CHLORIDE 111 mmol/L (98-107); GLUCOSE 160 mg/dL (75-110); POTASSIUM 5.4 mmol/L (3.6-5.0); SODIUM 138.6 mmol/L (137-145); TOTAL PROTEIN 5.4 g/dL (6.3-8.2)
[2017-04-24 05:38] LABS: CREATINE KINASE < 20 U/L (55-170)
[2017-04-24 05:44] LABS: ABSOLUTE LYMPHOCYTES# (MANUAL) 0.5 10^3/uL (0.5-4.7); BASOPHILS % (MANUAL) 0 % (0-2); EOSINOPHILS % (MANUAL) 0 % (0-6); LYMPHOCYTES % (MANUAL) 80 % (13-45); MONOCYTES % (MANUAL) 6 % (3-13); SEGMENTED NEUTROPHILS % (MAN) 4 % (42-78); TOTAL CELLS COUNTED 50
[2017-04-24 05:45] LABS: ANISOCYTOSIS SLIGHT
[2017-04-24 05:46] LABS: PLATELET CLUMPS PRESENT
[2017-04-24 05:47] LABS: PLATELET COMMENT ADEQUATE
--- NOTE | 2017-04-24 06:02 | EKG REPORT ---
SEVERITY:- BORDERLINE ECG - SINUS RHYTHM BORDERLINE T ABNORMALITIES, INFERIOR LEADS : Confirmed by: Oni Muñoz MD 24-Apr-2017 06:02:22
--- NOTE | 2017-04-24 07:49 | PDOC H&P ---
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 Patient presents after generalized weakness and a fall prompting evaluation emergency room where he found to have an head CT consistent with known metastatic lesion, sepsis, right sided lung mass with infiltrate, hypotension, neutropenia and hyperkalemia. He receives an norepinephrine, IV fluid challenge, empiric antibiotics and referred to the hospitalist for admission. Patient denies pain but appears chronically sick and toxic. Past Medical History Cardiac Medical History: Reports: Coronary Artery Disease, Myocardial Infarction - 10 years ago, Hypertension Pulmonary Medical History: Reports: Asthma - A CHILD Denies: Bronchitis, Chronic Obstructive Pulmonary Disease (COPD), Pneumonia Neurological Medical History: Denies: Seizures Musculoskeltal Medical History: Reports: Arthritis - Right Hip, Bilat Hands Hematology: Denies: Anemia Social History Information Source: Patient, Relative, Emergency Med Personnel, [facility] Records Lives with: Spouse/Significant other Smoking Status: Unknown if Ever Smoked Frequency of Alcohol Use: None Hx Recreational Drug Use: No Drugs: None Hx Prescription Drug Abuse: No - Advance Directive Resuscitation Status: Full Code Family History Family History: COPD, Hypertension Parental Family History Reviewed: Yes Children Family History Reviewed: Yes Sibling(s) Family History Reviewed.: Yes Medication/Allergy Home Medications: Amlodipine Besylate 10 mg PO DAILY 02/14/17 Aspirin 325 mg PO DAILY 02/14/17 Atorvastatin Calcium 10 mg PO QHS 02/14/17 Diclofenac Sodium 50 mg PO DAILY 02/14/17 Lisinopril 20 mg PO DAILY 02/14/17 Propranolol HCl 60 mg PO QHS 02/14/17 Allergies/Adverse Reactions: No Known Allergies Allergy (Unverified 02/14/17 11:05) Review of Systems ROS unobtainable: Due to mental status Physical Exam Vital Signs: Temp Pulse Resp BP Pulse Ox 97.5 F 71 18 127/59 H 99 04/24/17 06:30 04/24/17 05:24 04/24/17 06:30 04/24/17 06:29 04/24/17 06:30 Intake & Output 04/22/17 04/23/17 04/24/17 11:59 11:59 11:59 Output Total 1600 Balance -1600 Weight 74.6 kg General appearance: PRESENT: cooperative, mild distress Head exam: PRESENT: atraumatic, normocephalic Eye exam: PRESENT: conjunctiva pink, EOMI, PERRLA. ABSENT: scleral icterus Ear exam: PRESENT: normal external ear exam Mouth exam: PRESENT: dry mucosa Neck exam: ABSENT: carotid bruit, JVD, lymphadenopathy, thyromegaly Respiratory exam: PRESENT: accessory muscle use, crackles, prolonged expiratory phas, rales, retraction, rhonchi, tachypnea. ABSENT: wheezes Cardiovascular exam: PRESENT: RRR. ABSENT: diastolic murmur, rubs, systolic murmur Pulses: PRESENT: normal dorsalis pedis pul Vascular exam: PRESENT: normal capillary refill GI/Abdominal exam: PRESENT: normal bowel sounds, soft. ABSENT: distended, guarding, mass, organolmegaly, rebound, tenderness Rectal exam: PRESENT: deferred Extremities exam: PRESENT: full ROM. ABSENT: calf tenderness, clubbing, pedal edema Neurological exam: PRESENT: altered, awake, oriented to person, CN II-XII grossly intact. ABSENT: motor sensory deficit Psychiatric exam: PRESENT: appropriate affect, normal mood. ABSENT: homicidal ideation, suicidal ideation Skin exam: PRESENT: dry, intact, warm. ABSENT: cyanosis, rash Results Laboratory Results: 04/24/17 04:41 04/24/17 04:41 04/24/17 04/24/17 04:41 04:41 WBC 0.6 L* RBC 2.99 L Hgb 10.1 L Hct 30.4 L MCV 102 H MCH 33.9 H MCHC 33.4 RDW 14.1 H Plt Count 156 Seg Neutrophils % Not Reportable Lymphocytes % Not Reportable Monocytes % Not Reportable Eosinophils % Not Reportable Basophils % Not Reportable Absolute Neutrophils Not Reportable Absolute Lymphocytes Not Reportable Absolute Monocytes Not Reportable Absolute Eosinophils Not Reportable Absolute Basophils Not Reportable Sodium 138.6 Potassium 5.4 H Chloride 111 H Carbon Dioxide 18 L Anion Gap 10 BUN 38 H Creatinine 1.56 H Est GFR ( Amer) 54 L Est GFR (Non-Af Amer) 45 L Glucose 160 H Calcium 8.3 L Total Bilirubin 2.2 H AST 20 ALT 18 L Alkaline Phosphatase 118 Total Protein 5.4 L Albumin 2.6 L 04/24/17 04:41 Creatine Kinase < 20 L Impressions: Chest X-Ray 04/23/17 21:36 IMPRESSION: MASS IN THE LEFT LUNG UNCHANGED. PATCHY DENSITY IN THE RIGHT LOWER LOBE SUSPICIOUS FOR PNEUMONIA. Head CT 04/23/17 21:36 IMPRESSION: 1. MASS IN THE LEFT CEREBRAL HEMISPHERE WITH VASOGENIC EDEMA IN THE ADJACENT WHITE MATTER. SIMILAR APPEARANCE TO THE PREVIOUS MRI. 2. MILD ATROPHY AND WHITE MATTER CHANGE CONSISTENT WITH CHRONIC MICROVASCULAR ISCHEMIA. OLD LACUNAR INFARCTS. NO ACUTE FINDINGS. 3. SINUS DISEASE. EVIDENCE OF ACUTE STROKE: NO. Assessment & Plan - Diagnosis (1) Severe sepsis Is this a current diagnosis for this admission?: Yes Plan: Secondary to postobstructive pneumonia complicated by lung cancer and recent chemotherapy. ICU admission, norepinephrine, IV fluid challenge, consider stress dose steroids. Follow-up imaging culture and CBC (2) Hyperkalemia Is this a current diagnosis for this admission?: Yes Plan: Albuterol and Atrovent, calcium gluconate and Kayexalate reevaluate chemistry (3) Hypotension Qualifiers: Hypotension type: idiopathic hypotension Qualified Code(s): I95.0 - Idiopathic hypotension Is this a current diagnosis for this admission?: Yes Plan: IV fluid challenge, norepinephrine, follow-up lactic acid (4) Lung cancer, lower lobe Qualifiers: Laterality: right Qualified Code(s): C34.31 - Malignant neoplasm of lower lobe, right bronchus or lung Is this a current diagnosis for this admission?: Yes Plan: Supportive measures, oncology consulted (5) Neutropenia Qualifiers: Neutropenia type: other Qualified Code(s): D70.8 - Other neutropenia Is this a current diagnosis for this admission?: Yes Plan: Neutropenic precautions, vancomycin and cefepime ordered follow-up CBC, oncology consulted (6) Pneumonia Qualifiers: Pneumonia type: aspiration pneumonia Aspiration pneumonia type: unspecified Laterality: right Lung location: lower lobe of lung Qualified Code(s): J69.0 - Pneumonitis due to inhalation of food and vomit Is this a current diagnosis for this admission?: Yes Plan: Complicated by postobstructive process, vancomycin and cefepime, albuterol and Atrovent follow-up CBC and blood culture - Time Time Spent: 50 to 70 Minutes - Inpatient Certification Medical Necessity: Significant Comorbidiites Make Outpatient Treatment Too Risky , Need Close Monitoring Due to Risk of Patient Decompensation
[2017-04-24] MEDS ORDERED: ASPIRIN 325 MG TABLET PO SCH (10:00)
[2017-04-24] MEDS: CEFEPIME 2 GM/D5W RTU 2 GM/50 ML RTUPB IV SCH ×2 (10:52→22:05)
[2017-04-24] MEDS: GUAIFENESIN 600 MG TABLET.SA PO SCH ×2 (10:52→22:06)
[2017-04-24] MEDS: HEPARIN SOD (PORCINE) 5,000 UNIT/ML 1 ML SYRINGE SUBCUT SCH ×3 (10:59→22:04)
--- NOTE | 2017-04-24 11:52 | PDOC PROGRESS REPORT ---
Subjective Progress Note for:: 04/24/17 Subjective:: 66-year-old gentleman with right-sided lung cancer with brain metastases who presented with neutropenia, hypotension and tachycardia consistent with acute sepsis secondary to pneumonia. The patient has not required intubation but has required vasopressors. At the time my exam he denies any complaints. Reason For Visit: HYPERKALEMIA,ACUTE RESP FAILURE,PNEUMONIA,LUNG Physical Exam Vital Signs: Temp Pulse Resp BP Pulse Ox 97.5 F 69 18 123/64 93 04/24/17 10:30 04/24/17 10:00 04/24/17 10:30 04/24/17 10:29 04/24/17 10:30 Intake & Output 04/23/17 04/24/17 04/25/17 06:59 06:59 06:59 Output Total 1600 1176 Balance -1600 -1176 Weight 74.6 kg General appearance: PRESENT: mild distress Eye exam: PRESENT: conjunctiva pink. ABSENT: scleral icterus Ear exam: PRESENT: normal external ear exam Mouth exam: PRESENT: moist, tongue midline Neck exam: ABSENT: JVD Respiratory exam: PRESENT: rhonchi - Bilateral rhonchi. ABSENT: rales, wheezes Cardiovascular exam: PRESENT: tachycardia. ABSENT: diastolic murmur, rubs, systolic murmur GI/Abdominal exam: PRESENT: normal bowel sounds, soft. ABSENT: distended, guarding, mass, organolmegaly, rebound, tenderness Extremities exam: ABSENT: calf tenderness, clubbing, pedal edema Neurological exam: PRESENT: alert, awake, oriented to person, oriented to place , oriented to time, oriented to situation, CN II-XII grossly intact. ABSENT: motor sensory deficit Psychiatric exam: PRESENT: appropriate affect Skin exam: PRESENT: dry, intact, warm. ABSENT: cyanosis, rash Results Laboratory Results: 04/24/17 04:41 04/24/17 04:41 04/24/17 04/24/17 04/24/17 04:41 04:41 10:25 WBC 0.6 L* RBC 2.99 L Hgb 10.1 L Hct 30.4 L MCV 102 H MCH 33.9 H MCHC 33.4 RDW 14.1 H Plt Count 156 Seg Neutrophils % Not Reportable Lymphocytes % Not Reportable Monocytes % Not Reportable Eosinophils % Not Reportable Basophils % Not Reportable Absolute Neutrophils Not Reportable Absolute Lymphocytes Not Reportable Absolute Monocytes Not Reportable Absolute Eosinophils Not Reportable Absolute Basophils Not Reportable Sodium 138.6 Potassium 5.4 H Chloride 111 H Carbon Dioxide 18 L Anion Gap 10 BUN 38 H Creatinine 1.56 H Est GFR ( Amer) 54 L Est GFR (Non-Af Amer) 45 L Glucose 160 H Calcium 8.3 L Total Bilirubin 2.2 H AST 20 ALT 18 L Alkaline Phosphatase 118 Total Protein 5.4 L Albumin 2.6 L Stool Occult Blood Stool for White Cells NO WBCs SEEN 04/24/17 10:25 WBC RBC Hgb Hct MCV MCH MCHC RDW Plt Count Seg Neutrophils % Lymphocytes % Monocytes % Eosinophils % Basophils % Absolute Neutrophils Absolute Lymphocytes Absolute Monocytes Absolute Eosinophils Absolute Basophils Sodium Potassium Chloride Carbon Dioxide Anion Gap BUN Creatinine Est GFR ( Amer) Est GFR (Non-Af Amer) Glucose Calcium Total Bilirubin AST ALT Alkaline Phosphatase Total Protein Albumin Stool Occult Blood NEGATIVE Stool for White Cells 04/24/17 04:41 Creatine Kinase < 20 L Impressions: Chest X-Ray 04/23/17 21:36 IMPRESSION: MASS IN THE LEFT LUNG UNCHANGED. PATCHY DENSITY IN THE RIGHT LOWER LOBE SUSPICIOUS FOR PNEUMONIA. Head CT 04/23/17 21:36 IMPRESSION: 1. MASS IN THE LEFT CEREBRAL HEMISPHERE WITH VASOGENIC EDEMA IN THE ADJACENT WHITE MATTER. SIMILAR APPEARANCE TO THE PREVIOUS MRI. 2. MILD ATROPHY AND WHITE MATTER CHANGE CONSISTENT WITH CHRONIC MICROVASCULAR ISCHEMIA. OLD LACUNAR INFARCTS. NO ACUTE FINDINGS. 3. SINUS DISEASE. EVIDENCE OF ACUTE STROKE: NO. Assessment & Plan - Diagnosis (1) Severe sepsis Is this a current diagnosis for this admission?: Yes Plan: Secondary to pneumonia. Patient also has neutropenia. Patient has been started on broad-spectrum antibiotics and IV fluids as well as vasopressors. (2) Pneumonia Qualifiers: Pneumonia type: aspiration pneumonia Aspiration pneumonia type: unspecified Laterality: right Lung location: lower lobe of lung Qualified Code(s): J69.0 - Pneumonitis due to inhalation of food and vomit Is this a current diagnosis for this admission?: Yes Plan: Patient was started on vancomycin and cefepime. (3) Neutropenia Qualifiers: Neutropenia type: other Qualified Code(s): D70.8 - Other neutropenia Is this a current diagnosis for this admission?: Yes Plan: Patient is followed by oncology as an outpatient. We will consult them tomorrow. (4) Hyperkalemia Is this a current diagnosis for this admission?: Yes Plan: Improving with IV fluids. (5) Hypotension Qualifiers: Hypotension type: idiopathic hypotension Qualified Code(s): I95.0 - Idiopathic hypotension Is this a current diagnosis for this admission?: Yes Plan: Secondary to sepsis. Continue with IV fluids and vasopressors. (6) Lung cancer, lower lobe Qualifiers: Laterality: right Qualified Code(s): C34.31 - Malignant neoplasm of lower lobe, right bronchus or lung Is this a current diagnosis for this admission?: Yes (7) Coronary artery disease Is this a current diagnosis for this admission?: Yes Plan: Denies any chest pain. Will continue with aspirin. (8) Acute renal failure Is this a current diagnosis for this admission?: Yes Plan: Patient has acute on chronic renal failure stage III. Improved with IV fluids. (9) Anemia Is this a current diagnosis for this admission?: Yes Plan: Hemoglobin has remained stable. - Time Time Spent with patient: 25-34 minutes - Inpatient Certification Medical Necessity: Need For IV Fluids, Need for IV Antibiotics
--- NOTE | 2017-04-24 13:56 | PDOC CONSULTATION ---
Consultation Consult Date: 04/24/17 Consult reason:: Hematology/Oncology consultation was requested for patient with neutropenic fever on chemotherapy for lung cancer. 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 He received his first cycle of mechoopda based chemotherapy April 20. Patient presents after generalized weakness and a fall prompting evaluation emergency room where he found to have an head CT consistent with known metastatic lesion, sepsis, right sided lung mass with infiltrate, hypotension, neutropenia and hyperkalemia. He received an norepinephrine, IV fluid challenge, empiric antibiotics was admitted to the ICU for further care. This morning, he is lying in bed with at bedside. He still feels weak, but denies any pain, dyspnea, or other problems. No headaches. Past Medical History Cardiac Medical History: Reports: Coronary Artery Disease, Myocardial Infarction - 10 years ago, Hypertension Pulmonary Medical History: Reports: Asthma - A CHILD Denies: Bronchitis, Chronic Obstructive Pulmonary Disease (COPD), Pneumonia Neurological Medical History: Denies: Seizures Musculoskeltal Medical History: Reports: Arthritis - Right Hip, Bilat Hands Hematology: Denies: Anemia Social History Information Source: Patient Lives with: Spouse/Significant other Smoking Status: Former Smoker Frequency of Alcohol Use: None Hx Recreational Drug Use: No Drugs: None Hx Prescription Drug Abuse: No - Advance Directive Resuscitation Status: Full Code Family History Family History: COPD, Hypertension Parental Family History Reviewed: Yes Children Family History Reviewed: Yes Sibling(s) Family History Reviewed.: Yes Medication/Allergy Home Medications: Amlodipine Besylate [Norvasc 10 mg Tablet] 10 mg PO DAILY 04/24/17 Aspirin [Adult Low Dose Aspirin EC] 81 mg PO DAILY 04/24/17 Diclofenac Sodium [Voltaren 50 mg Tablet.dr] 50 mg PO DAILY 04/24/17 Levetiracetam [Keppra 500 mg Tablet] 500 mg PO BID 04/24/17 Lisinopril [Zestril] 20 mg PO DAILY 04/24/17 Ondansetron HCl [Zofran 8 mg Tablet] 8 mg PO Q8HP PRN 04/24/17 Promethazine HCl [Phenergan 25 mg Tablet] 25 mg PO Q4HP PRN 04/24/17 Propranolol HCl [Inderal LA] 60 mg PO DAILY 04/24/17 Temazepam [Restoril 15 mg Capsule] 15 mg PO QPM 04/24/17 Allergies/Adverse Reactions: No Known Allergies Allergy (Unverified 02/14/17 11:05) Review of Systems Constitutional: PRESENT: fever(s) - No fever prior to admission, but fever was found in the ED, according to patient's .. ABSENT: headache(s) Eyes: ABSENT: visual disturbances Ears: ABSENT: hearing changes Nose, Mouth, and Throat: ABSENT: sore throat Cardiovascular: ABSENT: chest pain Respiratory: ABSENT: dyspnea Gastrointestinal: ABSENT: constipation, diarrhea, nausea Genitourinary: ABSENT: dysuria Musculoskeletal: PRESENT: muscle weakness Integumentary: ABSENT: rash Neurological: ABSENT: confusion, frequent falls Psychiatric: ABSENT: anxiety Endocrine: PRESENT: other - Insomnia Physical Exam Vital Signs: Temp Pulse Resp BP Pulse Ox 98.2 F 75 20 137/59 H 92 04/24/17 12:00 04/24/17 12:00 04/24/17 12:00 04/24/17 12:00 04/24/17 12:00 Intake & Output 04/23/17 04/24/17 04/25/17 06:59 06:59 06:59 Output Total 1600 1876 Balance -1600 -1876 Weight 74.6 kg General appearance: PRESENT: no acute distress, well-nourished Exam: 66 year old male. Eye exam: PRESENT: EOMI, PERRLA. ABSENT: scleral icterus Mouth exam: PRESENT: moist, tongue midline Teeth exam: ABSENT: poor dentation Neck exam: ABSENT: lymphadenopathy, tenderness Respiratory exam: PRESENT: clear to auscultation laura Cardiovascular exam: PRESENT: RRR Pulses: PRESENT: normal dorsalis pedis pul GI/Abdominal exam: PRESENT: soft. ABSENT: tenderness Extremities exam: ABSENT: pedal edema Musculoskeletal exam: ABSENT: tenderness Neurological exam: PRESENT: alert, awake, oriented to person, oriented to place , oriented to time, oriented to situation, other - Some difficulty finding words at baseline. No significant change from prior exam. Psychiatric exam: PRESENT: normal mood Focused psych exam: ABSENT: restlessness Skin exam: PRESENT: warm. ABSENT: pallor, rash Results Laboratory Results: 04/24/17 04:41 04/24/17 04:41 04/24/17 04/24/17 04/24/17 04:41 04:41 10:25 WBC 0.6 L* RBC 2.99 L Hgb 10.1 L Hct 30.4 L MCV 102 H MCH 33.9 H MCHC 33.4 RDW 14.1 H Plt Count 156 Seg Neutrophils % Not Reportable Lymphocytes % Not Reportable Monocytes % Not Reportable Eosinophils % Not Reportable Basophils % Not Reportable Absolute Neutrophils Not Reportable Absolute Lymphocytes Not Reportable Absolute Monocytes Not Reportable Absolute Eosinophils Not Reportable Absolute Basophils Not Reportable Sodium 138.6 Potassium 5.4 H Chloride 111 H Carbon Dioxide 18 L Anion Gap 10 BUN 38 H Creatinine 1.56 H Est GFR ( Amer) 54 L Est GFR (Non-Af Amer) 45 L Glucose 160 H Calcium 8.3 L Total Bilirubin 2.2 H AST 20 ALT 18 L Alkaline Phosphatase 118 Total Protein 5.4 L Albumin 2.6 L Stool Occult Blood Stool for White Cells NO WBCs SEEN 04/24/17 10:25 WBC RBC Hgb Hct MCV MCH MCHC RDW Plt Count Seg Neutrophils % Lymphocytes % Monocytes % Eosinophils % Basophils % Absolute Neutrophils Absolute Lymphocytes Absolute Monocytes Absolute Eosinophils Absolute Basophils Sodium Potassium Chloride Carbon Dioxide Anion Gap BUN Creatinine Est GFR ( Amer) Est GFR (Non-Af Amer) Glucose Calcium Total Bilirubin AST ALT Alkaline Phosphatase Total Protein Albumin Stool Occult Blood NEGATIVE Stool for White Cells 04/24/17 04:41 Creatine Kinase < 20 L Impressions: Chest X-Ray 04/23/17 21:36 IMPRESSION: MASS IN THE LEFT LUNG UNCHANGED. PATCHY DENSITY IN THE RIGHT LOWER LOBE SUSPICIOUS FOR PNEUMONIA. Head CT 04/23/17 21:36 IMPRESSION: 1. MASS IN THE LEFT CEREBRAL HEMISPHERE WITH VASOGENIC EDEMA IN THE ADJACENT WHITE MATTER. SIMILAR APPEARANCE TO THE PREVIOUS MRI. 2. MILD ATROPHY AND WHITE MATTER CHANGE CONSISTENT WITH CHRONIC MICROVASCULAR ISCHEMIA. OLD LACUNAR INFARCTS. NO ACUTE FINDINGS. 3. SINUS DISEASE. EVIDENCE OF ACUTE STROKE: NO. Assessment & Plan - Diagnosis (1) Lung cancer, lower lobe Qualifiers: Laterality: right Qualified Code(s): C34.31 - Malignant neoplasm of lower lobe, right bronchus or lung Is this a current diagnosis for this admission?: Yes Plan: Patient has known metastatic lung cancer with brain mets. He just completed cycle #1 of chemotherapy. (2) Neutropenia Qualifiers: Neutropenia type: other Qualified Code(s): D70.8 - Other neutropenia Is this a current diagnosis for this admission?: Yes Plan: Secondary to chemotherapy. Continue neutropenic precautions and watch carefully. This should improve over the next few days. (3) Hyperkalemia Is this a current diagnosis for this admission?: Yes Plan: This may be partially due to tumor lysis. Support with fluids and continue appropriate treatment. (4) Severe sepsis Is this a current diagnosis for this admission?: Yes Plan: Agree with current antibiotics, awaiting cultures. Await resolution of neutropenia. - Plan Summary Plan Summary: Thank you for this consult. I will continue to follow him with you. Please call with any concerns.
[2017-04-24] MEDS: ACETAMINOPHEN 325 MG TABLET PO PRN (14:44)
[2017-04-24] MEDS ORDERED: VANCOMYCIN HCL 1,250 MG in DEXTROSE 5%-WATER 250 ML IV SCH (16:00)
[2017-04-24] MEDS: NORMAL SALINE 1000 ML 1,000 ML IV PRN (20:16)
[2017-04-25] MEDS: IPRATROPIUM/ALBUTEROL 0.5-2.5 MG/3 ML AMPUL NEB SCH ×2 (01:23→07:47)
[2017-04-25 04:28] LABS: ABSOLUTE LYMPHOCYTES (AUTO) 0.4 10^3/uL (0.5-4.7); EOSINOPHILS % (AUTO) 0.3 % (0-6); HEMATOCRIT 29.2 % (37.9-51.0); HEMOGLOBIN 9.9 g/dL (13.5-17.0); LYMPHOCYTES % (AUTO) 95.6 % (13-45); MEAN CORPUSCULAR HEMOGLOBIN 33.5 pg (27.0-33.4); MEAN CORPUSCULAR HGB CONC 33.8 g/dL (32.0-36.0); MEAN CORPUSCULAR VOLUME 99 fl (80-97); MONOCYTES % (AUTO) 3.7 % (3-13); RED BLOOD COUNT 2.95 10^6/uL (4.35-5.55); RED CELL DISTRIBUTION WIDTH 13.8 % (11.5-14.0); SEGMENTED NEUTROPHILS % (AUTO) 0.4 % (42-78); TOTAL CELLS COUNTED % (AUTO) 100 %
[2017-04-25 04:37] LABS: PLATELET COUNT 94 10^3/uL (150-450)
[2017-04-25 04:42] LABS: WHITE BLOOD COUNT 0.4 10^3/uL (4.0-10.5)
[2017-04-25 04:49] LABS: ALANINE AMINOTRANSFERASE 22 U/L (21-72); ALBUMIN 2.9 g/dL (3.5-5.0); ALKALINE PHOSPHATASE 111 U/L (38-126); ANION GAP 8 (5-19); ASPARTATE AMINO TRANSFERASE 12 U/L (17-59); BILIRUBIN,DIRECT 0.7 mg/dL (0.0-0.4); BILIRUBIN,TOTAL 1.1 mg/dL (0.2-1.3); CALCIUM 8.8 mg/dL (8.4-10.2); CARBON DIOXIDE 21 mmol/L (22-30); CHLORIDE 105 mmol/L (98-107); GLUCOSE 152 mg/dL (75-110); SODIUM 134.1 mmol/L (137-145); TOTAL PROTEIN 6.4 g/dL (6.3-8.2)
[2017-04-25 04:54] LABS: BLOOD UREA NITROGEN 15 mg/dL (7-20); CREATINE KINASE < 20 U/L (55-170)
[2017-04-25 04:57] LABS: PLATELET COMMENT DECREASED
[2017-04-25] MEDS: HEPARIN SOD (PORCINE) 5,000 UNIT/ML 1 ML SYRINGE SUBCUT SCH ×3 (05:17→21:54)
[2017-04-25 05:18] LABS: POTASSIUM 4.4 mmol/L (3.6-5.0)
[2017-04-25] MEDS ORDERED: PROMETHAZINE HCL 25 MG TABLET PO PRN (07:55)
[2017-04-25] MEDS ORDERED: ONDANSETRON HCL 8 MG TABLET PO PRN (07:55)
[2017-04-25] MEDS ORDERED: ALBUTEROL SULFATE 0.083% NEB 2.5 MG/3 ML AMPUL NEB PRN (08:15)
--- NOTE | 2017-04-25 08:17 | PDOC PROGRESS REPORT ---
Subjective Progress Note for:: 04/25/17 Subjective:: No acute events overnight, pt on small dose levophed, bcx w/ 1 bottle GPCs, hospitalist will repeat cx today. Pt still neutropenic but did receive neulasta on 04/21/17 so should be seeing response soon. Reason For Visit: HYPERKALEMIA,ACUTE RESP FAILURE,PNEUMONIA,LUNG Physical Exam Vital Signs: Temp Pulse Resp BP Pulse Ox 99.9 F 79 18 96/63 L 95 04/25/17 06:09 04/25/17 07:54 04/25/17 07:49 04/25/17 06:09 04/25/17 07:49 Intake & Output 04/24/17 04/25/17 04/26/17 06:59 06:59 06:59 Intake Total 2898 Output Total 1600 4281 Balance -1600 -1383 Weight 74.6 kg 72.6 kg General appearance: PRESENT: no acute distress, well-developed, well-nourished Head exam: PRESENT: atraumatic, normocephalic Eye exam: PRESENT: conjunctiva pink, EOMI, PERRLA. ABSENT: scleral icterus Ear exam: PRESENT: normal external ear exam Mouth exam: PRESENT: moist, tongue midline Neck exam: ABSENT: carotid bruit, JVD, lymphadenopathy, thyromegaly Respiratory exam: PRESENT: clear to auscultation laura. ABSENT: rales, rhonchi, wheezes Cardiovascular exam: PRESENT: RRR. ABSENT: diastolic murmur, rubs, systolic murmur Pulses: PRESENT: normal dorsalis pedis pul Vascular exam: PRESENT: normal capillary refill GI/Abdominal exam: PRESENT: normal bowel sounds, soft. ABSENT: distended, guarding, mass, organolmegaly, rebound, tenderness Rectal exam: PRESENT: deferred Extremities exam: PRESENT: full ROM. ABSENT: calf tenderness, clubbing, pedal edema Neurological exam: PRESENT: alert, awake, oriented to person, oriented to place , oriented to time, oriented to situation, CN II-XII grossly intact. ABSENT: motor sensory deficit Psychiatric exam: PRESENT: appropriate affect, normal mood. ABSENT: homicidal ideation, suicidal ideation Skin exam: PRESENT: dry, intact, warm. ABSENT: cyanosis, rash Results Laboratory Results: 04/25/17 03:52 04/25/17 03:52 04/24/17 04/24/17 04/25/17 10:25 10:25 03:52 WBC 0.4 L* RBC 2.95 L Hgb 9.9 L Hct 29.2 L MCV 99 H MCH 33.5 H MCHC 33.8 RDW 13.8 Plt Count 94 L Seg Neutrophils % 0.4 L Lymphocytes % 95.6 H Monocytes % 3.7 Eosinophils % 0.3 Basophils % 0.0 Absolute Neutrophils 0.0 L Absolute Lymphocytes 0.4 L Absolute Monocytes 0.0 L Absolute Eosinophils 0.0 Absolute Basophils 0.0 Sodium Potassium Chloride Carbon Dioxide Anion Gap BUN Creatinine Est GFR ( Amer) Est GFR (Non-Af Amer) Glucose Calcium Total Bilirubin AST ALT Alkaline Phosphatase Total Protein Albumin Stool Occult Blood NEGATIVE Stool for White Cells NO WBCs SEEN 04/25/17 03:52 WBC RBC Hgb Hct MCV MCH MCHC RDW Plt Count Seg Neutrophils % Lymphocytes % Monocytes % Eosinophils % Basophils % Absolute Neutrophils Absolute Lymphocytes Absolute Monocytes Absolute Eosinophils Absolute Basophils Sodium 134.1 L Potassium 4.4 D Chloride 105 Carbon Dioxide 21 L Anion Gap 8 BUN 15 D Creatinine 0.83 Est GFR ( Amer) > 60 Est GFR (Non-Af Amer) > 60 Glucose 152 H Calcium 8.8 Total Bilirubin 1.1 AST 12 L ALT 22 Alkaline Phosphatase 111 Total Protein 6.4 Albumin 2.9 L Stool Occult Blood Stool for White Cells 04/24/17 04/25/17 04:41 03:52 Creatine Kinase < 20 L < 20 L Impressions: Chest X-Ray 04/23/17 21:36 IMPRESSION: MASS IN THE LEFT LUNG UNCHANGED. PATCHY DENSITY IN THE RIGHT LOWER LOBE SUSPICIOUS FOR PNEUMONIA. Head CT 04/23/17 21:36 IMPRESSION: 1. MASS IN THE LEFT CEREBRAL HEMISPHERE WITH VASOGENIC EDEMA IN THE ADJACENT WHITE MATTER. SIMILAR APPEARANCE TO THE PREVIOUS MRI. 2. MILD ATROPHY AND WHITE MATTER CHANGE CONSISTENT WITH CHRONIC MICROVASCULAR ISCHEMIA. OLD LACUNAR INFARCTS. NO ACUTE FINDINGS. 3. SINUS DISEASE. EVIDENCE OF ACUTE STROKE: NO. Assessment & Plan - Diagnosis (1) Neutropenia Qualifiers: Neutropenia type: secondary to cancer chemotherapy Qualified Code(s): D70.1 - Agranulocytosis secondary to cancer chemotherapy; T45.1X5A - Adverse effect of antineoplastic and immunosuppressive drugs, initial encounter; T45.1X5A - Adverse effect of antineoplastic and immunosuppressive drugs, initial encounter Is this a current diagnosis for this admission?: Yes Plan: Received neulasta so no neupogen for now. Will monitor (2) Lung cancer, lower lobe Qualifiers: Laterality: right Qualified Code(s): C34.31 - Malignant neoplasm of lower lobe, right bronchus or lung Is this a current diagnosis for this admission?: Yes Plan: s/p cycle #1 chemo, monitor counts
--- NOTE | 2017-04-25 09:18 | PROGRESS NOTE E ---
Progress Note NAME: FLY SANTANA : 1950 AGE: 66Y DATE: 04/25/2017 ROOM: 605 CHIEF COMPLAINT: Fatigue. SUBJECTIVE: The patient is currently lying in bed. He states he feels a little better today than he did yesterday. The patient stated this is the first time he has eaten in 2 days. The patient denies any nausea or vomiting. The patient denies fevers or chills. The patient does not voice any other concerns at this time. REVIEW OF SYSTEMS: Rest of the review of systems negative. MEDICATIONS: Have been reviewed. OBJECTIVE: GENERAL: The patient is a 66-year-old male who is awake, alert, and oriented to person, place, time, and situation. He is verbal, conversational, and does not appear to be in any acute distress. VITAL SIGNS: Temperature 99.9, pulse 84, respirations 17, blood pressure 96/63, oxygen saturation is 94% on 2 L nasal cannula. SKIN: Warm and dry. No rash. He is not diaphoretic. He is quite pale. HEENT: Pupils equal, round, reactive to light and accommodation. Conjunctivae are pink. Patient has no evidence of JVP. CARDIOVASCULAR: Heart is regular. There is no rub. CHEST: Diminished, symmetrical, unlabored. Rhonchus breath sounds noted in left lung field. Right field is noted to be diminished. ABDOMEN: Soft, nontender, nondistended. BACK: No CVA tenderness or sacral edema. EXTREMITIES: No clubbing, cyanosis, or edema. All 4 extremities are warm to the touch. PSYCHIATRIC: Appropriately sad affect but very pleasant mood. DIAGNOSTICS: Lab values are as follows: Hematology obtained on 04/25/2017: WBCs are 0.4, hemoglobin is 9.9, hematocrit is 29.2, platelet count is 94,000. Chemistry obtained on 04/25/2017: Sodium is 134, potassium 4.4, chloride is 105, carbon dioxide 21, BUN 15, creatinine is 0.83, glucose 152, calcium is 8.8, bilirubin is 1.1, AST 12, ALT is 22, alk phos 111. IMPRESSION AND PLAN: 1. RIGHT LOWER LOBE PNEUMONIA. Will cover for healthcare-associated pneumonia given the patient's treatments. Will continue vancomycin and cefepime for now. Overall the patient's symptoms are improved. 2. NEUTROPENIC SEPSIS SECONDARY TO #1. The patient did get Neupogen in the office earlier in the week, so do expect for the patient's white count to improve throughout the week. Will follow. The patient is current being weakened from levo. Hopefully can get the patient off pressors today. 3. HYPERKALEMIA. This is improved with hydration. 4. ACUTE KIDNEY INJURY SECONDARY TO THE ABOVE. The patient's creatinine has now normalized. 5. METASTATIC LUNG CA WITH METS TO THE BRAIN. Will continue the patient's Keppra and follow. 6. HYPERTENSION. The patient is actually hypotensive at this time given his sepsis. Will continue to hold the patient's home blood pressure medications. 7. CORONARY ARTERY DISEASE. Will continue aspirin. 8. ANEMIA OF CHRONIC DISEASE SECONDARY TO MOST LIKELY HIS CANCER. His hemoglobin has remained stable and in an acceptable range. DISPOSITION: The patient is a DO NOT RESUSCITATE/DO NOT INTUBATE. Pending patient's symptomatology and diagnostic findings, will reevaluate in the a.m. Time spent on this critical care visit including assessment, plan, physical examination, patient education, and specialty collaboration is 40 minutes. ADVANCED CARE PLANNING: The patient is a 66-year-old male with a recent diagnosis of stage IV metastatic lung cancer. The patient has completed 1 cycle of chemotherapy and has become significantly neutropenic with such. The patient did receive Neulasta in the office. The patient does have comorbidities that consist of coronary artery disease as well as hypertension. In discussing with the patient, he is interested in pursuing treatment for his cancer and is hopeful for some improvement. The patient is aware that much of his treatment may be palliative in nature. The patient is able to articulate these things. The patient does have concerns that he has become this sick with just 1 round of chemotherapy which is understandable, however, this has been discussed with Oncology as well. The patient is agreeable to vasopressors, however, after discussion the patient is firm with his stance of DO NOT RESUSCITATE/DO NOT INTUBATE as the patient does want a peaceful natural passing should the time come. The patient does want all measures to that point at this time. The patient is agreeable to discussing further care with palliative care providers and all the patient's questions were answered. Time spent on this advanced care planning visit including review of records is 30 minutes. DICTATING PHYSICIAN: JAMIE SPENCE NP [id number] PHY#: [id number] ID: [id number] JOB#: [id number] ACCT: [id number] cc: >
[2017-04-25] MEDS: VANCOMYCIN HCL 1,000 MG in DEXTROSE 5%-WATER 250 ML IV SCH ×2 (09:39→21:53)
[2017-04-25] MEDS: LEVETIRACETAM 500 MG TABLET PO SCH ×2 (09:40→21:53)
[2017-04-25] MEDS: GUAIFENESIN 600 MG TABLET.SA PO SCH ×2 (09:40→21:54)
[2017-04-25] MEDS: ASPIRIN 81 MG TABLET, ENT COATED PO SCH (09:40)
[2017-04-25] MEDS ORDERED: CEFEPIME HCL 2 GM in DEXTROSE 5%-WATER 50 ML IV ONE (11:00)
[2017-04-25 11:02] LABS: PATH REVIEW PATHOLOGIST REVIEWED
[2017-04-25] MEDS: NORMAL SALINE 1000 ML 1,000 ML IV PRN ×2 (12:54→23:49)
[2017-04-25] MEDS: ACETAMINOPHEN 325 MG TABLET PO PRN (14:50)
[2017-04-25] MEDS: DEXTROSE 5%-WATER 250 ML with NOREPINEPHRINE BITARTRATE 4 MG IV PRN ×2 (18:01)
[2017-04-25] MEDS: CEFEPIME HCL 2 GM in DEXTROSE 5%-WATER 50 ML IV SCH (21:52)
[2017-04-25] MEDS: TEMAZEPAM 15 MG CAPSULE PO SCH (21:53)
--- NOTE | 2017-04-25 22:52 | Palliative Consultation Report ---
Consultation From:: TERRENCE IVY - [facility] HPI: Palliative care Consult visit 04/25/17 3:15Pm Appreciate palliaitve care consult with this 66 year old man who was very recently diagnosed with lung cancer and brain mets. He is in ICU with pneumonia , hypotension and neutropenia. he is alert and oriented although very weak. Mr. Gambino denies pain and says he really doesnt feel short of breath. But he does report being very weak and tired as well as anxious. We briefly discussed his recent medical history and that palliative care is to just support him as he conitnues to fight his disease processes and decide on future therapies and options. At this time. he is grateful for treatment for his pneumonia and is agreeable with current therapy. He does not want to be intubated or put on ventilator if he has respiratory arrest, nor does he want CPR. Mr. Gambino lives at home and had no idea he had cancer, He reports the lung cancer was found with a routine chest x-ray at the [facility] and he is agreeable for continued treatment of the cancer. He e denies headache or feelings of confusion. Mr. Gambino tells me he had radiation to his brain already. At the present time, patient is very tired and weak, he just finished his bath and linen change. I assured him that I will return and follow with him. Onset: Just prior to arrival Onset/Duration: Gradual Quality of Pain: No pain Severity: None Pain Level: Denies Past Medical History(Consults) - General Information Source: Patient, [facility] Records Home Medications: Amlodipine Besylate [Norvasc 10 mg Tablet] 10 mg PO DAILY 04/24/17 Aspirin [Adult Low Dose Aspirin EC] 81 mg PO DAILY 04/24/17 Diclofenac Sodium [Voltaren 50 mg Tablet.dr] 50 mg PO DAILY 04/24/17 Levetiracetam [Keppra 500 mg Tablet] 500 mg PO BID 04/24/17 Lisinopril [Zestril] 20 mg PO DAILY 04/24/17 Ondansetron HCl [Zofran 8 mg Tablet] 8 mg PO Q8HP PRN 04/24/17 Promethazine HCl [Phenergan 25 mg Tablet] 25 mg PO Q4HP PRN 04/24/17 Propranolol HCl [Inderal LA] 60 mg PO DAILY 04/24/17 Temazepam [Restoril 15 mg Capsule] 15 mg PO QPM 04/24/17 Allergies/Adverse Reactions: No Known Allergies Allergy (Unverified 02/14/17 11:05) - Social History Lives with: Spouse/Significant other Family History: Reviewed & Not Pertinent Parental Family History Reviewed: No Children Family History Reviewed: No Sibling(s) Family History Reviewed.: No Smoking Status: Smoker,Current Status Unk Frequency of Alcohol Use: None Hx Recreational Drug Use: No Drugs: None Hx Prescription Drug Abuse: No - Past Medical History Cardiac Medical History: Reports: Hx Coronary Artery Disease, Hx Heart Attack - 10 years ago, Hx Hypertension Pulmonary Medical History: Reports: Hx Asthma - A CHILD Denies: Hx Bronchitis, Hx COPD, Hx Pneumonia Neurological Medical History: Reports: Hx Cerebrovascular Accident - 10 years ago, RIGHT SIDED WEAKNESS, DIFFICULTY SPEAKING. Denies: Hx Seizures Renal/ Medical History: Denies: Hx Peritoneal Dialysis Musculoskeltal Medical History: Reports Hx Arthritis - Right Hip, Bilat Hands Hematology: Denies: Anemia Review of systems Constitutional: Malaise, Weakness EENT: No symptoms reported Cardiovascular: Chest pain Respiratory: Short of breath Gastrointestinal: No symptoms reported Geniturinary: No symptoms reported Musculoskeltal: No symptoms reported Neurological/Psychological: Anxiety Ojective:Exam Vital Signs: Temp Pulse Resp BP Pulse Ox 98.8 F 70 19 103/53 L 95 04/25/17 19:42 04/25/17 20:00 04/25/17 18:16 04/25/17 18:16 04/25/17 18:16 Intake & Output 04/24/17 04/25/17 04/26/17 06:59 06:59 06:59 Intake Total 7331 1669 Output Total 7463 6143 0005 Balance -4911 -5012 -283 Weight 74.6 kg 72.6 kg - General General Appearance: Alert, Anxious In distress: None - Respiratory Respiratory Status: Labored - Conversational dyspnea Chest Status: Nontender Breath sounds: Crackle - Abdominal Distension: No distension - Psychological Associated symptoms: Anxious - Very weak and tired, seems anxious about getting better and treating the cancer without continued infections etc. Objective-Diagnostic Laboratory: 04/25/17 03:52 04/25/17 03:52 04/25/17 04/25/17 03:52 03:52 WBC 0.4 L* RBC 2.95 L Hgb 9.9 L Hct 29.2 L MCV 99 H MCH 33.5 H MCHC 33.8 RDW 13.8 Plt Count 94 L Seg Neutrophils % 0.4 L Lymphocytes % 95.6 H Monocytes % 3.7 Eosinophils % 0.3 Basophils % 0.0 Absolute Neutrophils 0.0 L Absolute Lymphocytes 0.4 L Absolute Monocytes 0.0 L Absolute Eosinophils 0.0 Absolute Basophils 0.0 Sodium 134.1 L Potassium 4.4 D Chloride 105 Carbon Dioxide 21 L Anion Gap 8 BUN 15 D Creatinine 0.83 Est GFR ( Amer) > 60 Est GFR (Non-Af Amer) > 60 Glucose 152 H Calcium 8.8 Total Bilirubin 1.1 AST 12 L ALT 22 Alkaline Phosphatase 111 Total Protein 6.4 Albumin 2.9 L 04/24/17 04/25/17 04:41 03:52 Creatine Kinase < 20 L < 20 L Plan and Recommendation Plan and Recommendation: Will follow with patient. He states he is feeling OK, just so very tired. Assured him we would talk again later and I would be available if his and questions or concerns also. Encouraged him to rest and get better now. Left my card with cell phone number for his . WIll follow as he gains strength and energy to talk. Appreciate opportunity to participate in this [facility] care. - Time Spent with Patient Time spent with patient: 15 to 30 Minutes - 35 min with patient, chart review and consultation with hospitalist.
[2017-04-26] MEDS: GUAIFENESIN SYRP 200 MG/10 ML UDC PO PRN (01:50)
[2017-04-26] MEDS: ACETAMINOPHEN 325 MG TABLET PO PRN ×3 (01:50→19:32)
[2017-04-26 04:11] LABS: ABSOLUTE LYMPHOCYTES (AUTO) 0.5 10^3/uL (0.5-4.7); EOSINOPHILS % (AUTO) 0.2 % (0-6); HEMATOCRIT 26.8 % (37.9-51.0); LYMPHOCYTES % (AUTO) 97.8 % (13-45); MEAN CORPUSCULAR HEMOGLOBIN 32.8 pg (27.0-33.4); MEAN CORPUSCULAR HGB CONC 33.6 g/dL (32.0-36.0); MEAN CORPUSCULAR VOLUME 98 fl (80-97); MONOCYTES % (AUTO) 1.7 % (3-13); RED BLOOD COUNT 2.74 10^6/uL (4.35-5.55); RED CELL DISTRIBUTION WIDTH 13.6 % (11.5-14.0); SEGMENTED NEUTROPHILS % (AUTO) 0.3 % (42-78); TOTAL CELLS COUNTED % (AUTO) 100 %
[2017-04-26 04:27] LABS: ALANINE AMINOTRANSFERASE 17 U/L (21-72); ALBUMIN 2.5 g/dL (3.5-5.0); ALKALINE PHOSPHATASE 116 U/L (38-126); ANION GAP 8 (5-19); ASPARTATE AMINO TRANSFERASE 11 U/L (17-59); BILIRUBIN,DIRECT 0.6 mg/dL (0.0-0.4); BILIRUBIN,TOTAL 0.9 mg/dL (0.2-1.3); BLOOD UREA NITROGEN 12 mg/dL (7-20); CALCIUM 8.4 mg/dL (8.4-10.2); CARBON DIOXIDE 21 mmol/L (22-30); CHLORIDE 108 mmol/L (98-107); GLUCOSE 122 mg/dL (75-110); MAGNESIUM 1.7 mg/dL (1.6-2.3); POTASSIUM 4.1 mmol/L (3.6-5.0); SODIUM 136.9 mmol/L (137-145); TOTAL PROTEIN 5.1 g/dL (6.3-8.2)
[2017-04-26 04:37] LABS: WHITE BLOOD COUNT 0.5 10^3/uL (4.0-10.5)
[2017-04-26 04:47] LABS: PLATELET COMMENT DECREASED
[2017-04-26 04:54] LABS: PLATELET COUNT 61 10^3/uL (150-450)
[2017-04-26] MEDS: HEPARIN SOD (PORCINE) 5,000 UNIT/ML 1 ML SYRINGE SUBCUT SCH ×3 (05:02→21:13)
[2017-04-26] MEDS: NORMAL SALINE 1000 ML 1,000 ML IV PRN ×2 (05:25→18:09)
--- NOTE | 2017-04-26 08:48 | PROGRESS NOTE E ---
Progress Note NAME: FLY SANTANA : 1950 AGE: 66Y DATE: 04/26/2017 ROOM: 605 SUBJECTIVE: The patient is currently lying in bed. The patient was resumed on Levophed yesterday. At the present time, the patient's MAP is around 70. There have been no reported episodes of vomiting nor diarrhea. The patient states he does not have much of an appetite and is quite sad. The patient met with Palliative Care yesterday and many questions were addressed. The patient has been afebrile. His blood pressures have required vasopressors, and the patient does not voice any specific concerns at this time. REVIEW OF SYSTEMS: Rest of review of systems is negative. MEDICATIONS: Medications have been reviewed. OBJECTIVE: GENERAL: The patient is an unfortunate 66-year-old male who is awake, alert. He is oriented to person, place, time, situation. He is verbal, conversational, does not appear to be in acute distress. VITAL SIGNS: Are as follows: Temperature is 98.6, pulse 71, respirations 20, blood pressure is 122/62, oxygen saturation is 98% on 50% FiO2 BiPAP. SKIN: Warm and dry. No rash. He is not diaphoretic. HEENT: Pupils equal, round, reactive to light and accommodation. Conjunctivae pink. There is no JVP. CARDIOVASCULAR SYSTEM: Heart is regular. There is no murmur or rub. CHEST: Patient does have rhonchorous breath sounds in upper lung [place], bilaterally diminished throughout. ABDOMEN: Soft. Bowel sounds present. EXTREMITIES: No clubbing, cyanosis, edema. PSYCHIATRIC: Understandably flat affect and a grievous mood. DIAGNOSTICS: Lab values are as follows: Hematology obtained on 04/26/2017: WBCs are 0.5, hemoglobin is 9.0, hematocrit is 26.8, platelet count is 61,000. Chemistry obtained on 04/26/2017: Sodium is 136, potassium 4.1, chloride is 108, carbon dioxide 21, BUN 12, creatinine is 0.68, glucose 122, calcium is 8.4, magnesium is 1.7, bilirubin is 0.9, AST 11, ALT is 17. IMPRESSION AND PLAN: 1. RIGHT LOWER LOBE PNEUMONIA. Will cover for HCAP given the patient's chemo. Will continue vancomycin and cefepime for now. Overall, the patient's symptoms have improved. 2. NEUTROPENIC SEPSIS, SECONDARY TO #1. The patient did get Neupogen in the office last week. Hopefully his white count will continue to improve through the week. Will follow. 3. HYPERKALEMIA. 4. ACUTE KIDNEY INJURY. Patient's creatinine has normalized. 5. METASTATIC LUNG CANCER WITH METS TO THE BRAIN. Will continue Keppra and follow. 6. HYPERTENSION. The patient is hypotensive at the moment. Continue to hold oral medications and titrate Levophed to maintain a MAP of greater than 60-65. 7. CORONARY ARTERY DISEASE. Will continue aspirin. 8. ANEMIA OF CHRONIC DISEASE. Hemoglobin is in acceptable range. 9. THROMBOCYTOPENIA, SECONDARY PROBABLY TO TREATMENT. DISPOSITION: The patient is a DO NOT RESUSCITATE/DO NOT INTUBATE. Pending patient's symptomatology and diagnostic findings, will reevaluate as needed. Hopefully the patient can be downgraded to an IMCU bed later today. Time spent on this critical care visit including assessment, plan, physical examination, patient education, and specialty collaboration is 30 minutes. DICTATING PHYSICIAN: JAMIE SPENCE NP [id number] PHY#: [id number] ID: [id number] JOB#: [id number] ACCT: [id number] cc: >
--- NOTE | 2017-04-26 09:10 | PDOC PROGRESS REPORT ---
Subjective Progress Note for:: 04/26/17 Subjective:: Levophed has been discontinued, patient was seen by palliative care services, but clinically a little bit better. Reason For Visit: HYPERKALEMIA,ACUTE RESP FAILURE,PNEUMONIA,LUNG Physical Exam Vital Signs: Temp Pulse Resp BP Pulse Ox 98.6 F 66 20 122/62 98 04/26/17 07:48 04/26/17 08:00 04/26/17 07:48 04/26/17 07:48 04/26/17 07:48 Intake & Output 04/25/17 04/26/17 04/27/17 06:59 06:59 06:59 Intake Total 2898 3436 Output Total 4281 3720 30 Balance -1383 -284 -30 Weight 72.6 kg 73.3 kg General appearance: PRESENT: no acute distress, well-developed, well-nourished Head exam: PRESENT: atraumatic, normocephalic Eye exam: PRESENT: conjunctiva pink, EOMI, PERRLA. ABSENT: scleral icterus Ear exam: PRESENT: normal external ear exam Mouth exam: PRESENT: moist, tongue midline Neck exam: ABSENT: carotid bruit, JVD, lymphadenopathy, thyromegaly Respiratory exam: PRESENT: clear to auscultation laura. ABSENT: rales, rhonchi, wheezes Cardiovascular exam: PRESENT: RRR. ABSENT: diastolic murmur, rubs, systolic murmur Pulses: PRESENT: normal dorsalis pedis pul Vascular exam: PRESENT: normal capillary refill GI/Abdominal exam: PRESENT: normal bowel sounds, soft. ABSENT: distended, guarding, mass, organolmegaly, rebound, tenderness Rectal exam: PRESENT: deferred Extremities exam: PRESENT: full ROM. ABSENT: calf tenderness, clubbing, pedal edema Neurological exam: PRESENT: alert, awake, oriented to person, oriented to place , oriented to time, oriented to situation, CN II-XII grossly intact. ABSENT: motor sensory deficit Psychiatric exam: PRESENT: appropriate affect, normal mood. ABSENT: homicidal ideation, suicidal ideation Skin exam: PRESENT: dry, intact, warm. ABSENT: cyanosis, rash Results Laboratory Results: 04/26/17 03:53 04/26/17 03:53 04/26/17 04/26/17 03:53 03:53 WBC 0.5 L* RBC 2.74 L Hgb 9.0 L Hct 26.8 L MCV 98 H MCH 32.8 MCHC 33.6 RDW 13.6 Plt Count 61 L Seg Neutrophils % 0.3 L Lymphocytes % 97.8 H Monocytes % 1.7 L Eosinophils % 0.2 Basophils % 0.0 Absolute Neutrophils 0.0 L Absolute Lymphocytes 0.5 Absolute Monocytes 0.0 L Absolute Eosinophils 0.0 Absolute Basophils 0.0 Sodium 136.9 L Potassium 4.1 Chloride 108 H Carbon Dioxide 21 L Anion Gap 8 BUN 12 Creatinine 0.68 Est GFR ( Amer) > 60 Est GFR (Non-Af Amer) > 60 Glucose 122 H Calcium 8.4 Magnesium 1.7 Total Bilirubin 0.9 AST 11 L ALT 17 L Alkaline Phosphatase 116 Total Protein 5.1 L Albumin 2.5 L 04/24/17 10:25 Stool - Stool - Final 04/24/17 04/25/17 04:41 03:52 Creatine Kinase < 20 L < 20 L Impressions: Chest X-Ray 04/23/17 21:36 IMPRESSION: MASS IN THE LEFT LUNG UNCHANGED. PATCHY DENSITY IN THE RIGHT LOWER LOBE SUSPICIOUS FOR PNEUMONIA. Head CT 04/23/17 21:36 IMPRESSION: 1. MASS IN THE LEFT CEREBRAL HEMISPHERE WITH VASOGENIC EDEMA IN THE ADJACENT WHITE MATTER. SIMILAR APPEARANCE TO THE PREVIOUS MRI. 2. MILD ATROPHY AND WHITE MATTER CHANGE CONSISTENT WITH CHRONIC MICROVASCULAR ISCHEMIA. OLD LACUNAR INFARCTS. NO ACUTE FINDINGS. 3. SINUS DISEASE. EVIDENCE OF ACUTE STROKE: NO. Assessment & Plan - Diagnosis (1) Neutropenia Qualifiers: Neutropenia type: secondary to cancer chemotherapy Qualified Code(s): D70.1 - Agranulocytosis secondary to cancer chemotherapy; T45.1X5A - Adverse effect of antineoplastic and immunosuppressive drugs, initial encounter; T45.1X5A - Adverse effect of antineoplastic and immunosuppressive drugs, initial encounter Is this a current diagnosis for this admission?: Yes Plan: Neupogen not needed as Neulasta already given, continue to monitor, he should see an increase white blood cell count in the next 24-48 hours. (2) Lung cancer, lower lobe Qualifiers: Laterality: right Qualified Code(s): C34.31 - Malignant neoplasm of lower lobe, right bronchus or lung Is this a current diagnosis for this admission?: Yes Plan: Cycle #1 given, pancytopenia because of this, continue to monitor for now. No need for transfusions today. - Time Time Spent with patient: 35 or more minutes - Inpatient Certification Based on my medical assessment, after consideration of the patient's comorbidities, presenting symptoms, or acuity I expect that the services needed warrant INPATIENT care.: Yes I certify that my determination is in accordance with my understanding of Medicare's requirements for reasonable and necessary INPATIENT services [42 CFR 412.3e].: Yes Medical Necessity: Need for IV Antibiotics, Risk of Complication if Not Cared For in Hospital
[2017-04-26] MEDS: GUAIFENESIN 600 MG TABLET.SA PO SCH ×2 (10:08→21:11)
[2017-04-26] MEDS: LEVETIRACETAM 500 MG TABLET PO SCH ×2 (10:09→21:12)
[2017-04-26] MEDS: ASPIRIN 81 MG TABLET, ENT COATED PO SCH (10:09)
[2017-04-26] MEDS: CEFEPIME HCL 2 GM in DEXTROSE 5%-WATER 50 ML IV SCH ×2 (10:09→21:10)
[2017-04-26 10:59] LABS: VANCOMYCIN,TROUGH 10.1 ug/mL (5.0-20.0)
[2017-04-26] MEDS: VANCOMYCIN HCL 1,000 MG in DEXTROSE 5%-WATER 250 ML IV SCH ×2 (11:20→21:11)
[2017-04-26] MEDS: TEMAZEPAM 15 MG CAPSULE PO SCH (21:12)
[2017-04-27 04:22] LABS: ABSOLUTE LYMPHOCYTES (AUTO) 0.4 10^3/uL (0.5-4.7); HEMATOCRIT 25.3 % (37.9-51.0); HEMOGLOBIN 8.6 g/dL (13.5-17.0); LYMPHOCYTES % (AUTO) 93.8 % (13-45); MEAN CORPUSCULAR HEMOGLOBIN 33.2 pg (27.0-33.4); MEAN CORPUSCULAR HGB CONC 33.9 g/dL (32.0-36.0); MEAN CORPUSCULAR VOLUME 98 fl (80-97); MONOCYTES % (AUTO) 5.9 % (3-13); RED BLOOD COUNT 2.59 10^6/uL (4.35-5.55); RED CELL DISTRIBUTION WIDTH 13.9 % (11.5-14.0); SEGMENTED NEUTROPHILS % (AUTO) 0.3 % (42-78); TOTAL CELLS COUNTED % (AUTO) 100 %
[2017-04-27 04:30] LABS: WHITE BLOOD COUNT 0.4 10^3/uL (4.0-10.5)
[2017-04-27 04:33] LABS: ALANINE AMINOTRANSFERASE 40 U/L (21-72); ALBUMIN 2.4 g/dL (3.5-5.0); ALKALINE PHOSPHATASE 208 U/L (38-126); ANION GAP 8 (5-19); ASPARTATE AMINO TRANSFERASE 36 U/L (17-59); BILIRUBIN,DIRECT 0.4 mg/dL (0.0-0.4); BILIRUBIN,TOTAL 0.7 mg/dL (0.2-1.3); BLOOD UREA NITROGEN 11 mg/dL (7-20); CALCIUM 8.6 mg/dL (8.4-10.2); CARBON DIOXIDE 23 mmol/L (22-30); CHLORIDE 106 mmol/L (98-107); GLUCOSE 112 mg/dL (75-110); MAGNESIUM 1.7 mg/dL (1.6-2.3); SODIUM 137.3 mmol/L (137-145); TOTAL PROTEIN 4.9 g/dL (6.3-8.2)
[2017-04-27 04:46] LABS: PLATELET COMMENT DECREASED; PLATELET COUNT 33 10^3/uL (150-450)
[2017-04-27] MEDS: HEPARIN SOD (PORCINE) 5,000 UNIT/ML 1 ML SYRINGE SUBCUT SCH ×3 (05:38→21:12)
[2017-04-27] MEDS ORDERED: NORMAL SALINE 250 ML IV PRN (07:32)
--- NOTE | 2017-04-27 07:38 | PDOC PROGRESS REPORT ---
Subjective Progress Note for:: 04/27/17 Subjective:: Patient is frustrated and wants to go home. He denies pain, dyspnea, stomach, bowel or bladder problems. Reason For Visit: HYPERKALEMIA,ACUTE RESP FAILURE,PNEUMONIA,LUNG Physical Exam Vital Signs: Temp Pulse Resp BP Pulse Ox 99.1 F 94 13 105/53 L 92 04/27/17 06:00 04/27/17 07:32 04/27/17 06:00 04/27/17 05:22 04/27/17 06:00 Intake & Output 04/26/17 04/27/17 04/28/17 06:59 06:59 06:59 Intake Total 3436 2994 Output Total 3720 2575 Balance -284 419 Weight 73.3 kg 73.5 kg General appearance: PRESENT: no acute distress, well-nourished Exam: 66 year old male in bed. Tmax 100.4 on 04/26. Head exam: PRESENT: atraumatic Respiratory exam: PRESENT: clear to auscultation laura Cardiovascular exam: PRESENT: RRR Extremities exam: ABSENT: pedal edema Neurological exam: PRESENT: alert, awake Psychiatric exam: PRESENT: appropriate affect, other - Is talkative and appears to understand situation and discussion. Results Laboratory Results: 04/27/17 03:59 04/27/17 03:59 04/27/17 04/27/17 03:59 03:59 WBC 0.4 L* RBC 2.59 L Hgb 8.6 L Hct 25.3 L MCV 98 H MCH 33.2 MCHC 33.9 RDW 13.9 Plt Count 33 L Seg Neutrophils % 0.3 L Lymphocytes % 93.8 H Monocytes % 5.9 Eosinophils % 0.0 Basophils % 0.0 Absolute Neutrophils 0.0 L Absolute Lymphocytes 0.4 L Absolute Monocytes 0.0 L Absolute Eosinophils 0.0 Absolute Basophils 0.0 Sodium 137.3 Potassium 4.0 Chloride 106 Carbon Dioxide 23 Anion Gap 8 BUN 11 Creatinine 0.66 Est GFR ( Amer) > 60 Est GFR (Non-Af Amer) > 60 Glucose 112 H Calcium 8.6 Magnesium 1.7 Total Bilirubin 0.7 AST 36 ALT 40 Alkaline Phosphatase 208 H Total Protein 4.9 L Albumin 2.4 L 04/24/17 10:25 Stool - Stool - Final 04/24/17 04/25/17 04:41 03:52 Creatine Kinase < 20 L < 20 L Impressions: Chest X-Ray 04/23/17 21:36 IMPRESSION: MASS IN THE LEFT LUNG UNCHANGED. PATCHY DENSITY IN THE RIGHT LOWER LOBE SUSPICIOUS FOR PNEUMONIA. Head CT 04/23/17 21:36 IMPRESSION: 1. MASS IN THE LEFT CEREBRAL HEMISPHERE WITH VASOGENIC EDEMA IN THE ADJACENT WHITE MATTER. SIMILAR APPEARANCE TO THE PREVIOUS MRI. 2. MILD ATROPHY AND WHITE MATTER CHANGE CONSISTENT WITH CHRONIC MICROVASCULAR ISCHEMIA. OLD LACUNAR INFARCTS. NO ACUTE FINDINGS. 3. SINUS DISEASE. EVIDENCE OF ACUTE STROKE: NO. Assessment & Plan - Diagnosis (1) Lung cancer, lower lobe Qualifiers: Laterality: right Qualified Code(s): C34.31 - Malignant neoplasm of lower lobe, right bronchus or lung Is this a current diagnosis for this admission?: Yes (2) Neutropenia Qualifiers: Neutropenia type: secondary to cancer chemotherapy Qualified Code(s): D70.1 - Agranulocytosis secondary to cancer chemotherapy; T45.1X5A - Adverse effect of antineoplastic and immunosuppressive drugs, initial encounter; T45.1X5A - Adverse effect of antineoplastic and immunosuppressive drugs, initial encounter Is this a current diagnosis for this admission?: Yes Plan: Neutropenic fever continues. Will take time for this to resolve. Most recent blood cultures have been negative. Continue current antibiotics. I have explained to the patient that he may not be discharged until he is afebrile and no longer neutropenic. (3) Hyperkalemia Is this a current diagnosis for this admission?: Yes (4) Severe sepsis Is this a current diagnosis for this admission?: Yes (5) Thrombocytopenia Plan: No active bleeding, but continues to decrease. Will order 1 platelet pharesis pack today. Watch closely.
[2017-04-27] MEDS: VANCOMYCIN HCL 1,000 MG in DEXTROSE 5%-WATER 250 ML IV SCH (11:09)
[2017-04-27] MEDS: GUAIFENESIN 600 MG TABLET.SA PO SCH ×2 (11:10→21:10)
[2017-04-27] MEDS: ASPIRIN 81 MG TABLET, ENT COATED PO SCH (11:10)
[2017-04-27] MEDS: CEFEPIME HCL 2 GM in DEXTROSE 5%-WATER 50 ML IV SCH ×2 (11:10→21:09)
[2017-04-27] MEDS: LEVETIRACETAM 500 MG TABLET PO SCH ×2 (11:10→21:11)
[2017-04-27] MEDS: NORMAL SALINE 1000 ML 1,000 ML IV PRN (11:11)
[2017-04-27] MEDS: ACETAMINOPHEN 325 MG TABLET PO PRN (14:25)
[2017-04-27] MEDS: GUAIFENESIN SYRP 200 MG/10 ML UDC PO PRN (16:15)
--- NOTE | 2017-04-27 17:05 | RADIOLOGY REPORT (SQ) ---
EXAM DESCRIPTION: PICC INSERTION; FLUORO/CV PLACEMENT; U/S GUIDE FOR VASCULAR ACCESS COMPLETED DATE/TIME: 04/27/2017 4:40 pm REASON FOR STUDY: venous access; PICC INSERTION COMPARISON: None. FLUOROSCOPY TIME: 37 seconds. 1 images saved to PACS. TECHNIQUE: Fluoroscopic and ultrasound guided PICC placement. LIMITATIONS: None. PROCEDURE: After written consent and assessment were obtained, the patient was brought into the fluo roscopy room and place supine on the table. Ultrasound was used on the patient's left arm for PICC a ccess. The left arm was prepped and draped in a sterile fashion along with the ultrasound probe. The entry site was anesthetized with 1% lidocaine. A 21 gauge 7 cm needle was advanced through the skin a nd into the basilic vein under live ultrasound guidance. An ultrasound image was saved to PACS confi rming access site. A .018 guide wire was then inserted through the needle and into the venous system . The needle was the removed and an 11 blade scalpel was used to make a 1cm skin incision. A 5 fr pe el-away sheath was advanced over the wire and into the venous system. A measurement was then made usi ng the existing wire and live fluoroscopic guidance. The wire was then removed and the trimmed. The P ICC was advanced through the peel-away sheath and into the venous system. The peel-away sheath was re moved and the catheter was adhered to the patients arm with a stat lock. The catheter was then aspira vania and flushed and a sterile bandage was placed over the access site. A fluoroscopic spot image was saved to PACS confirming the catheter tip within the superior vena cava. IMPRESSION: SUCCESSFUL PLACEMENT OF A 5 FR DUAL LUMEN 41 CM PICC IN THE LEFT BASILIC VEIN. COMMENT: Patient medication list reviewed: Yes- Quality ID# [id number]:Eligible professional attests to doc umenting in the medical record they obtained, updated, or reviewed the patient's current medications. . Quality ID 145: Final reports for procedures using fluoroscopy that document radiation exposure shane eliane, or exposure time and number of fluorographic images (if radiation exposure indices are not avail able) Quality ID #[id number]: The patient was prepped and draped using maximum sterile barrier technique including cap, mask, sterile gown, sterile gloves, a large sterile sheet, hand hygiene, and 2% Chlorhexidine fo r cutaneous antisepsis. When ultrasound is used, sterile ultrasound techniques are followed requiring sterile gel and sterile probes. TECHNICAL DOCUMENTATION: JOB ID: [id number] [employer]- All Rights Reserved
[2017-04-27] MEDS ORDERED: CODEINE SULF 30 MG TABLET PO PRN (17:57)
[2017-04-27] MEDS: METRONIDAZOLE 500 MG/NS RTU 100 ML IV SCH (18:22)
[2017-04-27] MEDS: VANCOMYCIN HCL 750 MG in DEXTROSE 5%-WATER 250 ML IV SCH (18:23)
--- NOTE | 2017-04-27 19:23 | PROGRESS NOTE E ---
Progress Note NAME: FLY SANTANA : 1950 AGE: 66Y DATE: 04/27/2017 ROOM: 605 SUBJECTIVE: The patient is currently lying in bed. He states that he actually feels a little better today, although still does not feel well. The patient's only complaint really is cough. The patient's cough is now nonproductive, and states it is keeping him from resting. The patient has had no reported episodes of vomiting nor diarrhea. He has been afebrile. His blood pressures still remain on the soft side, but MAP is still greater than 60. The patient has had a low-grade temp, but has not had actual fever, and the patient does not voice any other concerns at this time. REVIEW OF SYSTEMS: The rest of review of systems is negative. MEDICATIONS: Medications have been reviewed. OBJECTIVE: GENERAL: The patient is a 66-year-old, male who is awake, alert. He is very frail, chronically-ill appearing, does not appear to be distressed. VITAL SIGNS: Temperature is 99.5, pulse 82, respirations 18, blood pressure is 99/44, oxygen saturation is 94% on 3 L nasal cannula. SKIN: Warm and dry. No rash. Nondiaphoretic. HEENT: Pupils are reactive. Conjunctivae is pink. There is no JVP/CVS. HEART: Regular. There is no murmur or rub. CHEST: Patient has rhonchorous breath sounds, upper lung burn[place]. ABDOMEN: Soft, nontender, nondistended. BACK: No CVA tenderness. Sacral edema. EXTREMITIES: No clubbing, cyanosis, or edema. PSYCHIATRIC: The patient has an understandably flat affect. DIAGNOSTIC STUDIES: Hematology on 04/27/2017: WBC is 8.4, hemoglobin is 9.6, hematocrit is 25.4, platelet count is 33,000. Chemistries done on 04/27/2017: Sodium is 137, potassium *5.7, BUN 11, creatinine is 1.1, glucose 112, calcium is 8.6, magnesium is 1.7, AST 36, ALT is 40, alk phos 208. IMPRESSION AND PLAN: 1. RIGHT LOWER LOBE PNEUMONIA. The patient is being covered for HCAP. However, given the patient's persistent low-grade temp and postobstructive etiology, most likely we will go ahead and cover more for anaerobes. Continue to avoid Zosyn due to myelosuppression as well as carbapenem's. We will continue vancomycin as well and cefepime. The patient feels slightly improved, although he still feels very poor. 2. NEUTROPENIC SEPSIS, SECONDARY TO #1. The patient got Neupogen last week in the office. Hopefully his white count will improve through the week. 3. THROMBOCYTOPENIA: The patient did receive a transfusion today. 4. HYPERKALEMIA, IMPROVED. 5. ACUTE KIDNEY INJURY, NORMALIZED. 6. METASTATIC LUNG CANCER WITH BRAIN METS. Will continue Keppra and follow. 7. HYPERTENSION. The patient's blood pressures are soft at this time. The patient hopefully can continue to maintain a MAP of greater than 60. If not, we will resume Levophed. 8. CORONARY ARTERY DISEASE. We will continue aspirin. 9. ANEMIA OF CHRONIC DISEASE. HEMOGLOBIN IS ACCEPTABLE. DISPOSITION: The patient is a DO NOT RESUSCITATE/DO NOT INTUBATE. The patient has been seen by palliative care as well. Given patient's symptomatology and diagnostic findings, will reevaluate as needed. Time spent on this followup, including assessment, plan, physical examination, patient education, review of records, and specialty collaboration is 35 minutes. DICTATING PHYSICIAN: JAMIE SPENCE NP [id number] PHY#: [id number] ID: [id number] JOB#: [id number] ACCT: [id number] cc: > [facility]
[2017-04-27] MEDS: NORMAL SALINE 10 ML SDV (SCHEDULED) IV SCH (21:09)
[2017-04-27] MEDS: TEMAZEPAM 15 MG CAPSULE PO SCH (21:11)
--- NOTE | 2017-04-27 21:50 | Progress Note ---
Provider Note Provider Note: Palliative care follow up visit. 04/27/17 3:40pm Follow up visit with patient who is very frustrated and sad about continued need to be in ICU with isolation. He said he is not having any pain, no shortness of breath and no other symptoms, but he does still feel very weak and tired. He told me he got platelets today and was glad for that. We discussed his body's slow response in replacing his white blood cells and the problem of infection if he is not protected until the cells can regenerate. He says he knows this and doesnt want to risk infection. However, he is very tired of being in hospital and told the hospitalist that he wants to go home. Mr. Gambino does look very depressed and sad. The realization that the medications to fight his newly diagnosed cancer are too strong for his body is of concern to him, of course. He told me his just left a while ago and I agreed to come earlier tomorrow to meet her. He is resting in dark room and says he just wants to sleep. Tomorrow, when is present, will discuss support available when he goes home and see what needs they have for care at home. Appreciate oncology notes and honesty with patient about staying here for protection. Will try to help support him to relieve his emotional pain and fear as much as is realistic. Will follow tomorrow..
[2017-04-28] MEDS: NORMAL SALINE 1000 ML 1,000 ML IV PRN ×2 (00:23→09:05)
[2017-04-28] MEDS: GUAIFENESIN SYRP 200 MG/10 ML UDC PO PRN (00:23)
[2017-04-28] MEDS: METRONIDAZOLE 500 MG/NS RTU 100 ML IV SCH ×4 (00:23→19:14)
[2017-04-28] MEDS: VANCOMYCIN HCL 750 MG in DEXTROSE 5%-WATER 250 ML IV SCH ×2 (02:36→09:03)
[2017-04-28] MEDS: HEPARIN SOD (PORCINE) 5,000 UNIT/ML 1 ML SYRINGE SUBCUT SCH ×3 (05:18→21:51)
[2017-04-28 05:23] LABS: ABSOLUTE LYMPHOCYTES (AUTO) 0.3 10^3/uL (0.5-4.7); ABSOLUTE MONOCYTES (AUTO) 0.1 10^3/uL (0.1-1.4); BASOPHILS % (AUTO) 0.3 % (0-2); EOSINOPHILS % (AUTO) 0.1 % (0-6); HEMATOCRIT 23.7 % (37.9-51.0); HEMOGLOBIN 8.3 g/dL (13.5-17.0); LYMPHOCYTES % (AUTO) 75.7 % (13-45); MEAN CORPUSCULAR HGB CONC 34.8 g/dL (32.0-36.0); MEAN CORPUSCULAR VOLUME 98 fl (80-97); MONOCYTES % (AUTO) 15.6 % (3-13); RED BLOOD COUNT 2.43 10^6/uL (4.35-5.55); SEGMENTED NEUTROPHILS % (AUTO) 8.3 % (42-78); TOTAL CELLS COUNTED % (AUTO) 100 %
[2017-04-28 05:53] LABS: ALANINE AMINOTRANSFERASE 31 U/L (21-72); ALBUMIN 2.4 g/dL (3.5-5.0); ALKALINE PHOSPHATASE 203 U/L (38-126); ANION GAP 10 (5-19); ASPARTATE AMINO TRANSFERASE 18 U/L (17-59); BILIRUBIN,DIRECT 0.3 mg/dL (0.0-0.4); BILIRUBIN,TOTAL 0.5 mg/dL (0.2-1.3); BLOOD UREA NITROGEN 8 mg/dL (7-20); CARBON DIOXIDE 25 mmol/L (22-30); CHLORIDE 102 mmol/L (98-107); GLUCOSE 150 mg/dL (75-110); MAGNESIUM 1.6 mg/dL (1.6-2.3); POTASSIUM 3.9 mmol/L (3.6-5.0); SODIUM 137.2 mmol/L (137-145)
[2017-04-28 05:54] LABS: CALCIUM 8.7 mg/dL (8.4-10.2)
[2017-04-28 06:05] LABS: PLATELET COUNT 34 10^3/uL (150-450)
[2017-04-28 06:11] LABS: WHITE BLOOD COUNT 0.4 10^3/uL (4.0-10.5)
[2017-04-28 06:12] LABS: ANISOCYTOSIS SLIGHT; PLATELET COMMENT DECREASED; POIKILOCYTOSIS SLIGHT; ROULEAUX SLIGHT
--- NOTE | 2017-04-28 07:18 | PDOC PROGRESS REPORT ---
Subjective Progress Note for:: 04/28/17 Subjective:: Patient states he is feeling better. He says that yesterday he was up in an exercise class. He is not eating much. He denies any pain and overall says he feels better. Nurses report that he was up walking with physical therapy yesterday. They report no new issues. On ROS he denies dysuria, constipation, diarrhea, chest pain or dyspnea. Reason For Visit: HYPERKALEMIA,ACUTE RESP FAILURE,PNEUMONIA,LUNG Physical Exam Vital Signs: Temp Pulse Resp BP Pulse Ox 100.4 F 84 23 H 102/54 L 95 04/28/17 06:01 04/27/17 19:39 04/28/17 06:01 04/28/17 06:01 04/28/17 06:01 Intake & Output 04/27/17 04/28/17 04/29/17 06:59 06:59 06:59 Intake Total 2994 2248 Output Total 2575 2825 Balance 419 -577 Weight 73.5 kg 73.5 kg General appearance: PRESENT: no acute distress, well-nourished Head exam: PRESENT: normocephalic Respiratory exam: PRESENT: clear to auscultation laura, unlabored Cardiovascular exam: PRESENT: RRR GI/Abdominal exam: PRESENT: soft. ABSENT: tenderness Extremities exam: ABSENT: pedal edema Neurological exam: PRESENT: alert, awake, oriented to person, oriented to place , oriented to situation Psychiatric exam: PRESENT: appropriate affect Results Laboratory Results: 04/28/17 05:00 04/28/17 05:00 04/27/17 04/28/17 04/28/17 08:32 05:00 05:00 WBC 0.4 L* RBC 2.43 L Hgb 8.3 L Hct 23.7 L MCV 98 H MCH 34.0 H MCHC 34.8 RDW 14.0 Plt Count 34 L Seg Neutrophils % 8.3 L Lymphocytes % 75.7 H Monocytes % 15.6 H Eosinophils % 0.1 Basophils % 0.3 Absolute Neutrophils 0.0 L Absolute Lymphocytes 0.3 L Absolute Monocytes 0.1 Absolute Eosinophils 0.0 Absolute Basophils 0.0 Sodium 137.2 Potassium 3.9 Chloride 102 Carbon Dioxide 25 Anion Gap 10 BUN 8 Creatinine 0.64 Est GFR ( Amer) > 60 Est GFR (Non-Af Amer) > 60 Glucose 150 H Calcium 8.7 Magnesium 1.6 Total Bilirubin 0.5 AST 18 ALT 31 Alkaline Phosphatase 203 H Total Protein 5.0 L Albumin 2.4 L Blood Type A POSITIVE 04/24/17 10:25 Stool - Stool - Final 04/24/17 10:25 Stool - Stool Stool Culture - Final NO SALMONELLA, SHIGELLA, CAMPYLOBACTER, OR E.COLI 0157 RECOVERED. NEGATIVE FOR SHIGA TOXINS 1&2. 04/24/17 04/25/17 04:41 03:52 Creatine Kinase < 20 L < 20 L Impressions: Chest X-Ray 04/23/17 21:36 IMPRESSION: MASS IN THE LEFT LUNG UNCHANGED. PATCHY DENSITY IN THE RIGHT LOWER LOBE SUSPICIOUS FOR PNEUMONIA. Head CT 04/23/17 21:36 IMPRESSION: 1. MASS IN THE LEFT CEREBRAL HEMISPHERE WITH VASOGENIC EDEMA IN THE ADJACENT WHITE MATTER. SIMILAR APPEARANCE TO THE PREVIOUS MRI. 2. MILD ATROPHY AND WHITE MATTER CHANGE CONSISTENT WITH CHRONIC MICROVASCULAR ISCHEMIA. OLD LACUNAR INFARCTS. NO ACUTE FINDINGS. 3. SINUS DISEASE. EVIDENCE OF ACUTE STROKE: NO. Guidance Fluoroscopy 04/27/17 00:00 IMPRESSION: SUCCESSFUL PLACEMENT OF A 5 FR DUAL LUMEN 41 CM PICC IN THE LEFT BASILIC VEIN. Interventional Vascular Procedure 04/27/17 00:00 IMPRESSION: SUCCESSFUL PLACEMENT OF A 5 FR DUAL LUMEN 41 CM PICC IN THE LEFT BASILIC VEIN. PICC Line Insertion 04/27/17 00:00 IMPRESSION: SUCCESSFUL PLACEMENT OF A 5 FR DUAL LUMEN 41 CM PICC IN THE LEFT BASILIC VEIN. Assessment & Plan - Diagnosis (1) Lung cancer, lower lobe Qualifiers: Laterality: right Qualified Code(s): C34.31 - Malignant neoplasm of lower lobe, right bronchus or lung Is this a current diagnosis for this admission?: Yes Plan: Completed first cycle of chemotherapy. Further plans to be discussed as outpatient. (2) Neutropenia Qualifiers: Neutropenia type: secondary to cancer chemotherapy Qualified Code(s): D70.1 - Agranulocytosis secondary to cancer chemotherapy; T45.1X5A - Adverse effect of antineoplastic and immunosuppressive drugs, initial encounter; T45.1X5A - Adverse effect of antineoplastic and immunosuppressive drugs, initial encounter Is this a current diagnosis for this admission?: Yes Plan: Patient received Neulasta, so no further treatment. Await count recovery within the next few days. (3) Hyperkalemia Is this a current diagnosis for this admission?: Yes (4) Severe sepsis Is this a current diagnosis for this admission?: Yes Plan: Much improved. Recent cultures have been NGTD. His Tmax this morning was 100.4. I would stop the Vanc, as no evidence of MRSA. Continue all other ABX. - Plan Summary Plan Summary: Continue mobilization and good nutrition. Await count recovery.
[2017-04-28] MEDS: CEFEPIME HCL 2 GM in DEXTROSE 5%-WATER 50 ML IV SCH ×2 (09:03→21:41)
[2017-04-28] MEDS: LEVETIRACETAM 500 MG TABLET PO SCH ×2 (09:04→21:41)
[2017-04-28] MEDS: GUAIFENESIN 600 MG TABLET.SA PO SCH ×2 (09:04→21:42)
[2017-04-28] MEDS: NORMAL SALINE 10 ML SDV (SCHEDULED) IV SCH ×2 (09:04→21:43)
[2017-04-28] MEDS: ASPIRIN 81 MG TABLET, ENT COATED PO SCH (09:05)
--- NOTE | 2017-04-28 13:37 | PDOC PROGRESS REPORT ---
Subjective Progress Note for:: 04/28/17 Subjective:: The patient is seen on morning rounds. He is found resting in bed comfortably with his present. He states that physically he is feeling fine and denies fever, chills, chest pain, dyspnea, cough, abdominal pain, nausea vomiting or diarrhea. He is understandably tearful about his situation and talks about his desire to be discharged to home. We briefly discussed the risks and benefits of being discharged home and what that would mean given his current WBC count. The patient briefly states that he is "tired of hospitals" and that he is not certain that he is interested in continuing aggressive therapies and is considering hospice. The patient does endorse symptoms of depression with regard to feeling hopeless, loss of interest , her appetite and sleep related to his mood. He is agreeable to a trial of an antidepressant time. He is asked to discuss his feelings with his and is encouraged to continue discussing his end-of-life goals of care with the various healthcare providers. Reason For Visit: HYPERKALEMIA,ACUTE RESP FAILURE,PNEUMONIA,LUNG Physical Exam Vital Signs: Temp Pulse Resp BP Pulse Ox 100.6 F H 104 H 12 113/57 L 97 04/28/17 10:01 04/28/17 08:53 04/28/17 10:01 04/28/17 10:01 04/28/17 10:01 Intake & Output 04/27/17 04/28/17 04/29/17 06:59 06:59 06:59 Intake Total 2994 2248 300 Output Total 2575 2825 Balance 419 -577 300 Weight 73.5 kg 73.5 kg General appearance: PRESENT: no acute distress, well-developed, well-nourished, other - Chronically ill-appearing Head exam: PRESENT: atraumatic, normocephalic Eye exam: PRESENT: conjunctiva pink, EOMI, PERRLA. ABSENT: scleral icterus Ear exam: PRESENT: normal external ear exam Mouth exam: PRESENT: moist, tongue midline Neck exam: ABSENT: carotid bruit, JVD, lymphadenopathy, thyromegaly Respiratory exam: PRESENT: clear to auscultation laura. ABSENT: rales, rhonchi, wheezes Cardiovascular exam: PRESENT: RRR. ABSENT: diastolic murmur, rubs, systolic murmur Pulses: PRESENT: normal dorsalis pedis pul Vascular exam: PRESENT: normal capillary refill GI/Abdominal exam: PRESENT: normal bowel sounds, soft. ABSENT: distended, guarding, mass, organolmegaly, rebound, tenderness Rectal exam: PRESENT: deferred Extremities exam: PRESENT: full ROM. ABSENT: calf tenderness, clubbing, pedal edema Neurological exam: PRESENT: alert, awake, oriented to person, oriented to place , oriented to time, oriented to situation, CN II-XII grossly intact. ABSENT: motor sensory deficit Psychiatric exam: PRESENT: appropriate affect - Appropriately tearful and expressive of sadness, depressed, normal mood. ABSENT: homicidal ideation, suicidal ideation Skin exam: PRESENT: dry, intact, warm. ABSENT: cyanosis, rash Results Laboratory Results: 04/28/17 05:00 04/28/17 05:00 04/27/17 04/28/17 04/28/17 08:32 05:00 05:00 WBC 0.4 L* RBC 2.43 L Hgb 8.3 L Hct 23.7 L MCV 98 H MCH 34.0 H MCHC 34.8 RDW 14.0 Plt Count 34 L Seg Neutrophils % 8.3 L Lymphocytes % 75.7 H Monocytes % 15.6 H Eosinophils % 0.1 Basophils % 0.3 Absolute Neutrophils 0.0 L Absolute Lymphocytes 0.3 L Absolute Monocytes 0.1 Absolute Eosinophils 0.0 Absolute Basophils 0.0 Sodium 137.2 Potassium 3.9 Chloride 102 Carbon Dioxide 25 Anion Gap 10 BUN 8 Creatinine 0.64 Est GFR ( Amer) > 60 Est GFR (Non-Af Amer) > 60 Glucose 150 H Calcium 8.7 Magnesium 1.6 Total Bilirubin 0.5 AST 18 ALT 31 Alkaline Phosphatase 203 H Total Protein 5.0 L Albumin 2.4 L Blood Type A POSITIVE 04/24/17 10:25 Stool - Stool - Final 04/24/17 10:25 Stool - Stool Stool Culture - Final NO SALMONELLA, SHIGELLA, CAMPYLOBACTER, OR E.COLI 0157 RECOVERED. NEGATIVE FOR SHIGA TOXINS 1&2. 04/24/17 04/25/17 04:41 03:52 Creatine Kinase < 20 L < 20 L Impressions: Chest X-Ray 04/23/17 21:36 IMPRESSION: MASS IN THE LEFT LUNG UNCHANGED. PATCHY DENSITY IN THE RIGHT LOWER LOBE SUSPICIOUS FOR PNEUMONIA. Head CT 04/23/17 21:36 IMPRESSION: 1. MASS IN THE LEFT CEREBRAL HEMISPHERE WITH VASOGENIC EDEMA IN THE ADJACENT WHITE MATTER. SIMILAR APPEARANCE TO THE PREVIOUS MRI. 2. MILD ATROPHY AND WHITE MATTER CHANGE CONSISTENT WITH CHRONIC MICROVASCULAR ISCHEMIA. OLD LACUNAR INFARCTS. NO ACUTE FINDINGS. 3. SINUS DISEASE. EVIDENCE OF ACUTE STROKE: NO. Guidance Fluoroscopy 04/27/17 00:00 IMPRESSION: SUCCESSFUL PLACEMENT OF A 5 FR DUAL LUMEN 41 CM PICC IN THE LEFT BASILIC VEIN. Interventional Vascular Procedure 04/27/17 00:00 IMPRESSION: SUCCESSFUL PLACEMENT OF A 5 FR DUAL LUMEN 41 CM PICC IN THE LEFT BASILIC VEIN. PICC Line Insertion 04/27/17 00:00 IMPRESSION: SUCCESSFUL PLACEMENT OF A 5 FR DUAL LUMEN 41 CM PICC IN THE LEFT BASILIC VEIN. Assessment & Plan - Diagnosis (1) Severe sepsis Is this a current diagnosis for this admission?: Yes Plan: Neutropenic sepsis secondary to right lower lobe pneumonia. The patient did receive Neupogen last week. He has been placed on protective precautions. He is receiving cefepime and Zosyn. The vancomycin was discontinued today as cultures do not show evidence of MRSA. Does not require pressor support at present, however, does remain tachycardic at 100-114, hypotensive (96/49-113/57), tachypneic at 12-24, with a low-grade temp of 100.6. He continues to receive IV fluid resuscitation. He did previously require a Levophed drip, but has maintained pressures without the drip for greater than 24 hours. Current map is 75. (2) Right lower lobe pneumonia Qualifiers: Pneumonia type: due to unspecified organism Qualified Code(s): J18.1 - Lobar pneumonia, unspecified organism Is this a current diagnosis for this admission?: Yes Plan: The patient is being covered for HCAP. Given the patient's persistent low- grade temperature and postobstructive etiology, he is additionally covered for anaerobes. Blood culture: No growth at 4 days with the exception of 1 bottle grew staph epidermidis determined to be a contaminant. Urine culture: No growth at 2 days Stool culture final no growth Repeat blood cultures have no growth at 72 hours all bottles. The patient's vancomycin will be discontinued today as there is no evidence of an MRSA infection. He is continued on cefepime and metronidazole. He is provided supplemental oxygen as needed to keep saturations greater than 92%. He is provided Mucinex twice daily and codeine cough syrup every 6 hours as needed. He is provided albuterol nebulizer treatments every 6 hours as needed. (3) Neutropenia Qualifiers: Neutropenia type: secondary to cancer chemotherapy Qualified Code(s): D70.1 - Agranulocytosis secondary to cancer chemotherapy; T45.1X5A - Adverse effect of antineoplastic and immunosuppressive drugs, initial encounter; T45.1X5A - Adverse effect of antineoplastic and immunosuppressive drugs, initial encounter Is this a current diagnosis for this admission?: Yes Plan: Secondary to chemotherapy treatment. The patient received Neupogen last week in the office. Hopefully his white count will improve throughout the week. Is currently stable at 0.4. He remains on neutropenic/protective precautions at this time. (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 Is this a current diagnosis for this admission?: Yes Plan: The patient is on Keppra for seizure prophylaxis. He has recently received Neupogen as an outpatient when his first treatment of chemotherapy. Appreciate oncology's consultation recommendations. Patient is currently considering hospice services. Appreciate [facility]'s consultation and recommendations. (5) Hypertension Plan: Self blood pressure secondary to sepsis. Will continue to monitor, if the patient is unable to maintain a map of greater than 60, will have to resume the Levophed drip. (6) Acute renal failure Is this a current diagnosis for this admission?: Yes Plan: Secondary to sepsis. Now resolved. Creatinine is currently his baseline of 0.64 (7) Anemia Is this a current diagnosis for this admission?: Yes Plan: Hemoglobin is down to 8.3 today; down from 10.7 on admission. This is likely secondary to hemodilution as part of the sepsis IV fluid resuscitation protocols. It appears that his baseline is approximately 14.9. We will continue to monitor and transfuse for hemoglobin less than 8. (8) Coronary artery disease Is this a current diagnosis for this admission?: Yes Plan: We will continue aspirin (9) Hyperkalemia Is this a current diagnosis for this admission?: Yes Plan: Resolved, will continue to monitor. (10) Thrombocytopenia Is this a current diagnosis for this admission?: Yes Plan: The patient received a platelet transfusion yesterday, unfortunately, his platelet level did not improve significantly. Current platelet count of 34. I did discuss with Dr. Massey the potential benefits for continued transfusion, at this time it was determined that there would be no significant benefit absent active bleeding. We will continue to monitor closely. Bleeding precautions. 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 I discussed with the patient the risks and benefits of starting an antidepressant at this time. I further discussed this is an option with Dr. Massey. Place the patient on low-dose Remeron nightly this may have the added benefit of increasing his appetite to further support his nutritional needs. - Time Time Spent with patient: 35 or more minutes Medications reviewed and adjusted accordingly: Yes
[2017-04-28] MEDS: ACETAMINOPHEN 325 MG TABLET PO PRN (14:00)
[2017-04-28 20:14] LABS: VANCOMYCIN,TROUGH 12.8 ug/mL (5.0-20.0)
[2017-04-28] MEDS: TEMAZEPAM 15 MG CAPSULE PO SCH (21:42)
[2017-04-28] MEDS: MIRTAZAPINE 15 MG TABLET PO SCH (21:42)
--- NOTE | 2017-04-28 22:38 | Progress Note ---
Provider Note Provider Note: Palliative care follow up visit 04/28/17 12:05 - 12:40 pm Palliative care follow up visit with this unfortunate 66 year old man who was recently diagnosed with lung cancer and brain mets. He has completed one round of chemotherapy and he became very weak, feverish and neutropenic. He is feeling better after several days in ICU, but he is very sad and frustrated. His white cell count remains critically low and his platelet count is low in spite of platelet infusion. Mr. Gambino was tearful during my visit and admits that he is very fearful, and tired of being in the hospital. Fever has continued in the past 24 hours, but patient denies any dyspnea or pain. He feels stronger and was happy to ambulate with therapy yesterday. He is eating very little but his hospitalist has ordered Mirtazapine to help with anxiety and appetite. If he tolerates the 7.5mg q hs well for a few days, I would recommend increasing to 15mg soon. Mrs. Gambino was visiting while I was there. We talked about the danger of patient going home, as he has requested. He said he is aware and he will stay a few more days to let his blood cells replenish. He denies pain or any discomfort. but says he is tired of being in bed and just wants to go home. His says she doesnt want him to come home because with her chronic back pain, she cannot clean well and she is afraid their house is dirty and will hurt him if he comes home. We discussed this being the season of many viruses and infections that could easily be passed to him, etc. He says he has decided to fight this and will stay. We talked at length about his family, his work and his life with his . He has never been happy lounging around, doesnt like TV or radio and has no hobbies that he could do in the hospital. He talked a little about fishing etc. We discussed the care he can get when he goes home with hospice or home health and palliative care visits at home. He is aware that future chemo treatments will be held until he is much better and possibly no more chemo will be recommended due to this reaction. He was able to talk about quality of life vs quantity and letting his body help to fight the progression of the disease without chemo. He is accepting of the prognosis of the disease and is tearful in discussion. His is realistic but hopeful that he will be able to return home and feel better soon. She is supportive and realistic without being overly optimistic. I think she understands the severity of his condition. Mr. Gambino laughed occasionally as we talked and seemed to relax a bit. He has every right to be depressed and frightened, but with the patient and caring attitude of the nurses and doctors he is seeing, I think he feels that he can express his fears and concerns and knows he is cared about,. I appreciate the compassionate care noted in other provider notes and nursing reports. I will follow with Mr. Gambino next week and I gave Mrs. Gambino my cell phone number in case she has questions or concerns later.
[2017-04-29] MEDS: METRONIDAZOLE 500 MG/NS RTU 100 ML IV SCH ×5 (00:27→23:27)
[2017-04-29] MEDS: NORMAL SALINE 1000 ML 1,000 ML IV PRN ×2 (05:15→14:41)
[2017-04-29] MEDS: HEPARIN SOD (PORCINE) 5,000 UNIT/ML 1 ML SYRINGE SUBCUT SCH ×3 (05:16→22:07)
[2017-04-29] MEDS: LEVETIRACETAM 500 MG TABLET PO SCH ×2 (10:20→21:58)
[2017-04-29] MEDS: GUAIFENESIN 600 MG TABLET.SA PO SCH ×2 (10:20→21:58)
[2017-04-29] MEDS: ASPIRIN 81 MG TABLET, ENT COATED PO SCH (10:20)
[2017-04-29] MEDS: NORMAL SALINE 10 ML SDV (SCHEDULED) IV SCH ×2 (10:20→21:59)
[2017-04-29] MEDS: CEFEPIME HCL 2 GM in DEXTROSE 5%-WATER 50 ML IV SCH ×2 (10:25→22:00)
[2017-04-29 10:30] LABS: ANION GAP 9 (5-19); BLOOD UREA NITROGEN 9 mg/dL (7-20); CALCIUM 8.7 mg/dL (8.4-10.2); CARBON DIOXIDE 26 mmol/L (22-30); CHLORIDE 102 mmol/L (98-107); GLUCOSE 108 mg/dL (75-110); POTASSIUM 3.6 mmol/L (3.6-5.0); SODIUM 137.2 mmol/L (137-145)
[2017-04-29 11:59] LABS: HEMATOCRIT 25.2 % (37.9-51.0); HEMOGLOBIN 8.7 g/dL (13.5-17.0); MEAN CORPUSCULAR HEMOGLOBIN 33.4 pg (27.0-33.4); MEAN CORPUSCULAR HGB CONC 34.3 g/dL (32.0-36.0); MEAN CORPUSCULAR VOLUME 97 fl (80-97); RED CELL DISTRIBUTION WIDTH 14.2 % (11.5-14.0)
[2017-04-29 12:17] LABS: WHITE BLOOD COUNT 1.9 10^3/uL (4.0-10.5)
[2017-04-29 12:18] LABS: PLATELET COUNT 46 10^3/uL (150-450)
[2017-04-29 12:27] LABS: ABSOLUTE LYMPHOCYTES# (MANUAL) 0.8 10^3/uL (0.5-4.7); ABSOLUTE MONOCYTES # (MANUAL) 0.1 10^3/uL (0.1-1.4); ABSOLUTE NEUTROPHILS# (MANUAL) 0.9 10^3/uL (1.7-8.2); BAND NEUTROPHILS % (MANUAL) 4 % (3-5); BASOPHILS % (MANUAL) 0 % (0-2); EOSINOPHILS % (MANUAL) 0 % (0-6); LYMPHOCYTES % (MANUAL) 44 % (13-45); MONOCYTES % (MANUAL) 7 % (3-13); SEGMENTED NEUTROPHILS % (MAN) 38 % (42-78); TOTAL CELLS COUNTED 100
[2017-04-29 12:31] LABS: ANISOCYTOSIS SLIGHT
[2017-04-29 12:32] LABS: BURR CELLS SLIGHT; PLATELET COMMENT DECREASED; PLATELET GIANT PRESENT; PLATELET LARGE PRESENT; SCHISTOCYTES SLIGHT; TEAR DROP CELLS SLIGHT
[2017-04-29 12:33] LABS: METAMYELOCYTES % (MANUAL) 4 % (0); MYELOCYTES % (MANUAL) 3 % (0)
[2017-04-29] MEDS ORDERED: NORMAL SALINE 1000 ML 1,000 ML IV ONE (12:51)
--- NOTE | 2017-04-29 13:01 | PDOC PROGRESS REPORT ---
Subjective Progress Note for:: 04/29/17 Subjective:: Patient relates that his spirit goes up and down. Reason For Visit: HYPERKALEMIA,ACUTE RESP FAILURE,PNEUMONIA,LUNG Physical Exam Vital Signs: Temp Pulse Resp BP Pulse Ox 99.5 F 101 H 18 119/54 L 91 L 04/29/17 05:11 04/29/17 05:11 04/29/17 05:11 04/29/17 05:11 04/29/17 05:11 Intake & Output 04/28/17 04/29/17 04/30/17 06:59 06:59 06:59 Intake Total 2248 1744 Output Total 2825 2400 Balance -577 -656 Weight 73.5 kg General appearance: PRESENT: no acute distress, cooperative, well-developed, well-nourished Head exam: PRESENT: atraumatic, normocephalic Eye exam: PRESENT: EOMI, PERRLA Ear exam: PRESENT: normal external ear exam Mouth exam: PRESENT: moist, neck supple Neck exam: PRESENT: full ROM. ABSENT: JVD Respiratory exam: PRESENT: clear to auscultation laura. ABSENT: crackles, rhonchi , other Cardiovascular exam: PRESENT: tachycardia. ABSENT: diastolic murmur, systolic murmur Vascular exam: PRESENT: normal capillary refill GI/Abdominal exam: PRESENT: normal bowel sounds, soft. ABSENT: tenderness Neurological exam: PRESENT: alert, oriented to person, oriented to place, oriented to time, CN II-XII grossly intact Psychiatric exam: PRESENT: depressed Results Laboratory Results: 04/28/17 05:00 04/28/17 19:00 04/28/17 19:00 Creatinine 0.72 Est GFR ( Amer) > 60 Est GFR (Non-Af Amer) > 60 04/24/17 04/25/17 04:41 03:52 Creatine Kinase < 20 L < 20 L Impressions: Chest X-Ray 04/23/17 21:36 IMPRESSION: MASS IN THE LEFT LUNG UNCHANGED. PATCHY DENSITY IN THE RIGHT LOWER LOBE SUSPICIOUS FOR PNEUMONIA. Head CT 04/23/17 21:36 IMPRESSION: 1. MASS IN THE LEFT CEREBRAL HEMISPHERE WITH VASOGENIC EDEMA IN THE ADJACENT WHITE MATTER. SIMILAR APPEARANCE TO THE PREVIOUS MRI. 2. MILD ATROPHY AND WHITE MATTER CHANGE CONSISTENT WITH CHRONIC MICROVASCULAR ISCHEMIA. OLD LACUNAR INFARCTS. NO ACUTE FINDINGS. 3. SINUS DISEASE. EVIDENCE OF ACUTE STROKE: NO. Guidance Fluoroscopy 04/27/17 00:00 IMPRESSION: SUCCESSFUL PLACEMENT OF A 5 FR DUAL LUMEN 41 CM PICC IN THE LEFT BASILIC VEIN. Interventional Vascular Procedure 04/27/17 00:00 IMPRESSION: SUCCESSFUL PLACEMENT OF A 5 FR DUAL LUMEN 41 CM PICC IN THE LEFT BASILIC VEIN. PICC Line Insertion 04/27/17 00:00 IMPRESSION: SUCCESSFUL PLACEMENT OF A 5 FR DUAL LUMEN 41 CM PICC IN THE LEFT BASILIC VEIN. 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 Is this a current diagnosis for this admission?: Yes Plan: As per oncology service (5) Neutropenia Qualifiers: Neutropenia type: secondary to cancer chemotherapy Qualified Code(s): D70.1 - Agranulocytosis secondary to cancer chemotherapy; T45.1X5A - Adverse effect of antineoplastic and immunosuppressive drugs, initial encounter; T45.1X5A - Adverse effect of antineoplastic and immunosuppressive drugs, initial encounter Is this a current diagnosis for this admission?: Yes Plan: Improving as well as thrombocytopenia (6) Right lower lobe pneumonia Qualifiers: Pneumonia type: due to unspecified organism Qualified Code(s): J18.1 - Lobar pneumonia, unspecified organism Is this a current diagnosis for this admission?: Yes Plan: Continue present treatment (7) Severe sepsis Is this a current diagnosis for this admission?: Yes Plan: Resolved (8) Tachycardia Is this a current diagnosis for this admission?: Yes Plan: Heart rate goes up and down. To order EKG and 1 liter saline bolus and follow up response. - Time Time Spent with patient: 15-24 minutes Medications reviewed and adjusted accordingly: Yes Anticipated discharge: Home Within: within 72 hours - Inpatient Certification Based on my medical assessment, after consideration of the patient's comorbidities, presenting symptoms, or acuity I expect that the services needed warrant INPATIENT care.: Yes I certify that my determination is in accordance with my understanding of Medicare's requirements for reasonable and necessary INPATIENT services [42 CFR 412.3e].: Yes Medical Necessity: Need For IV Fluids, Need for IV Antibiotics
[2017-04-29] MEDS: TEMAZEPAM 15 MG CAPSULE PO SCH (21:58)
[2017-04-29] MEDS: MIRTAZAPINE 15 MG TABLET PO SCH (21:59)
[2017-04-30] MEDS: METRONIDAZOLE 500 MG/NS RTU 100 ML IV SCH (05:29)
[2017-04-30] MEDS: NORMAL SALINE 10 ML SDV (AFTER EACH USE) IV PRN (05:30)
[2017-04-30] MEDS: HEPARIN SOD (PORCINE) 5,000 UNIT/ML 1 ML SYRINGE SUBCUT SCH ×3 (05:34→21:26)
[2017-04-30 06:04] LABS: HEMATOCRIT 23.1 % (37.9-51.0); MEAN CORPUSCULAR HEMOGLOBIN 33.4 pg (27.0-33.4); MEAN CORPUSCULAR HGB CONC 33.8 g/dL (32.0-36.0); MEAN CORPUSCULAR VOLUME 99 fl (80-97); RED BLOOD COUNT 2.34 10^6/uL (4.35-5.55); RED CELL DISTRIBUTION WIDTH 14.1 % (11.5-14.0)
[2017-04-30 06:27] LABS: ALANINE AMINOTRANSFERASE 25 U/L (21-72); ALBUMIN 2.1 g/dL (3.5-5.0); ALKALINE PHOSPHATASE 138 U/L (38-126); ANION GAP 9 (5-19); ASPARTATE AMINO TRANSFERASE 15 U/L (17-59); BILIRUBIN,DIRECT 0.2 mg/dL (0.0-0.4); BILIRUBIN,TOTAL 0.2 mg/dL (0.2-1.3); BLOOD UREA NITROGEN 7 mg/dL (7-20); CARBON DIOXIDE 24 mmol/L (22-30); CHLORIDE 106 mmol/L (98-107); GLUCOSE 107 mg/dL (75-110); POTASSIUM 3.5 mmol/L (3.6-5.0); SODIUM 139.2 mmol/L (137-145); TOTAL PROTEIN 4.4 g/dL (6.3-8.2)
[2017-04-30 06:33] LABS: PLATELET COUNT 50 10^3/uL (150-450); WHITE BLOOD COUNT 4.7 10^3/uL (4.0-10.5)
[2017-04-30 06:35] LABS: HEMOGLOBIN 7.8 g/dL (13.5-17.0)
[2017-04-30 06:50] LABS: ABSOLUTE LYMPHOCYTES# (MANUAL) 1.3 10^3/uL (0.5-4.7); ABSOLUTE MONOCYTES # (MANUAL) 0.1 10^3/uL (0.1-1.4); ABSOLUTE NEUTROPHILS# (MANUAL) 3.2 10^3/uL (1.7-8.2); BAND NEUTROPHILS % (MANUAL) 9 % (3-5); BASOPHILS % (MANUAL) 0 % (0-2); EOSINOPHILS % (MANUAL) 0 % (0-6); LYMPHOCYTES % (MANUAL) 26 % (13-45); METAMYELOCYTES % (MANUAL) 1 % (0); MONOCYTES % (MANUAL) 3 % (3-13); MYELOCYTES % (MANUAL) 2 % (0); SEGMENTED NEUTROPHILS % (MAN) 57 % (42-78); TOTAL CELLS COUNTED 100
[2017-04-30 06:53] LABS: ANISOCYTOSIS SLIGHT; TOXIC GRANULATION 2+
[2017-04-30 06:54] LABS: PLATELET COMMENT DECREASED
[2017-04-30] MEDS ORDERED: POTASSIUM CHLORIDE 10 MEQ TABLET.SA PO ONE (10:04)
[2017-04-30] MEDS ORDERED: NORMAL SALINE 250 ML IV PRN ×2 (10:06)
[2017-04-30] MEDS ORDERED: FUROSEMIDE INJ/PF 20 MG/2 ML SDV IV PRN (10:06)
[2017-04-30] MEDS ORDERED: CLINDAMYCIN PHOSPHATE 750 MG in DEXTROSE 5%-WATER 100 ML IV SCH (10:15)
--- NOTE | 2017-04-30 11:00 | EKG REPORT ---
SEVERITY:- BORDERLINE ECG - SINUS TACHYCARDIA BORDERLINE INFERIOR Q WAVES : Confirmed by: Melani Jimenez MD 30-Apr-2017 10:59:17
[2017-04-30] MEDS: ACETAMINOPHEN 325 MG TABLET PO PRN (11:36)
[2017-04-30] MEDS: GUAIFENESIN 600 MG TABLET.SA PO SCH ×2 (11:37→21:19)
[2017-04-30] MEDS: LEVETIRACETAM 500 MG TABLET PO SCH ×2 (11:37→21:19)
[2017-04-30] MEDS: ASPIRIN 81 MG TABLET, ENT COATED PO SCH (11:38)
[2017-04-30] MEDS: NORMAL SALINE 10 ML SDV (SCHEDULED) IV SCH ×2 (11:43→21:20)
[2017-04-30] MEDS: CEFEPIME HCL 2 GM in DEXTROSE 5%-WATER 50 ML IV SCH (12:19)
[2017-04-30] MEDS ORDERED: POTASSIUM CHLORIDE 20 MEQ/15 ML UDCUP PO ONE (13:30)
[2017-04-30] MEDS ORDERED: CLINDAMYCIN IV SCH (14:00)
[2017-04-30] MEDS ORDERED: [UNRECOGNIZED DRUG - OTHER] IV SCH (14:00)
--- NOTE | 2017-04-30 14:05 | PDOC PROGRESS REPORT ---
Subjective Progress Note for:: 04/30/17 Subjective:: Patient is a was able to sleep well last night. His appetite has picked up. He is somewhat disappointed that he is not still ready to go home. 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 Reason For Visit: HYPERKALEMIA,ACUTE RESP FAILURE,PNEUMONIA,LUNG Physical Exam Vital Signs: Temp Pulse Resp BP Pulse Ox 97.4 F 89 20 100/53 L 94 04/30/17 05:46 04/30/17 05:46 04/30/17 05:46 04/30/17 05:46 04/30/17 05:46 Intake & Output 04/29/17 04/30/17 05/01/17 06:59 06:59 06:59 Intake Total 2044 4167 Output Total 3000 2100 Balance -956 2067 Weight 71.6 kg 71.2 kg General appearance: PRESENT: no acute distress, cooperative, well-developed, well-nourished Head exam: PRESENT: atraumatic, normocephalic Eye exam: PRESENT: EOMI, PERRLA Ear exam: PRESENT: normal external ear exam Mouth exam: PRESENT: moist Neck exam: PRESENT: full ROM. ABSENT: JVD, tenderness Respiratory exam: PRESENT: rhonchi. ABSENT: tachypnea, unlabored, wheezes Cardiovascular exam: PRESENT: RRR. ABSENT: diastolic murmur, systolic murmur Vascular exam: PRESENT: normal capillary refill GI/Abdominal exam: PRESENT: normal bowel sounds, soft. ABSENT: tenderness Extremities exam: PRESENT: full ROM. ABSENT: joint swelling, pedal edema Neurological exam: PRESENT: alert, oriented to person, oriented to place, oriented to time Psychiatric exam: PRESENT: anxious Results Laboratory Results: 04/30/17 05:25 04/30/17 05:25 04/29/17 04/29/17 04/29/17 10:00 10:00 10:00 WBC Cancelled RBC Cancelled Hgb Cancelled Hct Cancelled MCV Cancelled MCH Cancelled MCHC Cancelled RDW Cancelled Plt Count Cancelled Seg Neutrophils % Cancelled Lymphocytes % Cancelled Monocytes % Cancelled Eosinophils % Cancelled Basophils % Cancelled Absolute Neutrophils Cancelled Absolute Lymphocytes Cancelled Absolute Monocytes Cancelled Absolute Eosinophils Cancelled Absolute Basophils Cancelled Sodium 137.2 Potassium 3.6 Chloride 102 Carbon Dioxide 26 Anion Gap 9 BUN 9 Creatinine 0.67 Est GFR ( Amer) > 60 Est GFR (Non-Af Amer) > 60 Glucose 108 Calcium 8.7 Magnesium 1.7 Total Bilirubin AST ALT Alkaline Phosphatase Total Protein Albumin 04/29/17 04/30/17 04/30/17 11:25 05:25 05:25 WBC 1.9 L D 4.7 D RBC 2.60 L 2.34 L Hgb 8.7 L 7.8 L Hct 25.2 L 23.1 L MCV 97 99 H MCH 33.4 33.4 MCHC 34.3 33.8 RDW 14.2 H 14.1 H Plt Count 46 L 50 L Seg Neutrophils % Not Reportable Not Reportable Lymphocytes % Not Reportable Not Reportable Monocytes % Not Reportable Not Reportable Eosinophils % Not Reportable Not Reportable Basophils % Not Reportable Not Reportable Absolute Neutrophils Not Reportable Not Reportable Absolute Lymphocytes Not Reportable Not Reportable Absolute Monocytes Not Reportable Not Reportable Absolute Eosinophils Not Reportable Not Reportable Absolute Basophils Not Reportable Not Reportable Sodium 139.2 Potassium 3.5 L Chloride 106 Carbon Dioxide 24 Anion Gap 9 BUN 7 Creatinine 0.65 Est GFR ( Amer) > 60 Est GFR (Non-Af Amer) > 60 Glucose 107 Calcium 8.0 L Magnesium Total Bilirubin 0.2 AST 15 L ALT 25 Alkaline Phosphatase 138 H Total Protein 4.4 L Albumin 2.1 L 04/24/17 04/25/17 04:41 03:52 Creatine Kinase < 20 L < 20 L Impressions: Chest X-Ray 04/23/17 21:36 IMPRESSION: MASS IN THE LEFT LUNG UNCHANGED. PATCHY DENSITY IN THE RIGHT LOWER LOBE SUSPICIOUS FOR PNEUMONIA. Head CT 04/23/17 21:36 IMPRESSION: 1. MASS IN THE LEFT CEREBRAL HEMISPHERE WITH VASOGENIC EDEMA IN THE ADJACENT WHITE MATTER. SIMILAR APPEARANCE TO THE PREVIOUS MRI. 2. MILD ATROPHY AND WHITE MATTER CHANGE CONSISTENT WITH CHRONIC MICROVASCULAR ISCHEMIA. OLD LACUNAR INFARCTS. NO ACUTE FINDINGS. 3. SINUS DISEASE. EVIDENCE OF ACUTE STROKE: NO. Guidance Fluoroscopy 04/27/17 00:00 IMPRESSION: SUCCESSFUL PLACEMENT OF A 5 FR DUAL LUMEN 41 CM PICC IN THE LEFT BASILIC VEIN. Interventional Vascular Procedure 04/27/17 00:00 IMPRESSION: SUCCESSFUL PLACEMENT OF A 5 FR DUAL LUMEN 41 CM PICC IN THE LEFT BASILIC VEIN. PICC Line Insertion 04/27/17 00:00 IMPRESSION: SUCCESSFUL PLACEMENT OF A 5 FR DUAL LUMEN 41 CM PICC IN THE LEFT BASILIC VEIN. Assessment & Plan - Diagnosis (1) Acute renal failure Is this a current diagnosis for this admission?: Yes Plan: Resolved (2) Anemia Qualifiers: Anemia type: unspecified type Qualified Code(s): D64.9 - Anemia, unspecified Is this a current diagnosis for this admission?: Yes Plan: Drop 1 g and relates to chemotherapy treatment. 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 Is this a current diagnosis for this admission?: Yes Plan: As per oncology service (5) Neutropenia Qualifiers: Neutropenia type: secondary to cancer chemotherapy Qualified Code(s): D70.1 - Agranulocytosis secondary to cancer chemotherapy; T45.1X5A - Adverse effect of antineoplastic and immunosuppressive drugs, initial encounter; T45.1X5A - Adverse effect of antineoplastic and immunosuppressive drugs, initial encounter Is this a current diagnosis for this admission?: Yes Plan: Resolved (6) Right lower lobe pneumonia Qualifiers: Pneumonia type: due to unspecified organism Qualified Code(s): J18.1 - Lobar pneumonia, unspecified organism Is this a current diagnosis for this admission?: Yes Plan: Will place on Levaquin oral and will add clindamycin and follow up response. The latter will be to cover MRSA. (7) Severe sepsis Is this a current diagnosis for this admission?: Yes Plan: Resolved (8) Tachycardia Is this a current diagnosis for this admission?: Yes Plan: Resolved (9) Hypokalemia Is this a current diagnosis for this admission?: Yes Plan: Replaced orally. - Time Time Spent with patient: 15-24 minutes Medications reviewed and adjusted accordingly: Yes Anticipated discharge: Home Within: within 48 hours - Inpatient Certification Based on my medical assessment, after consideration of the patient's comorbidities, presenting symptoms, or acuity I expect that the services needed warrant INPATIENT care.: Yes I certify that my determination is in accordance with my understanding of Medicare's requirements for reasonable and necessary INPATIENT services [42 CFR 412.3e].: Yes Medical Necessity: Need for IV Antibiotics
[2017-04-30] MEDS: LEVOFLOXACIN 750 MG TABLET PO SCH (14:25)
[2017-04-30] MEDS: CLINDAMYCIN 900 MG/D5W RTU 50 ML IV SCH ×2 (14:25→21:20)
[2017-04-30] MEDS: NORMAL SALINE 1000 ML 1,000 ML IV PRN (14:28)
[2017-04-30 17:53] LABS: HEMATOCRIT 28.1 % (37.9-51.0); HEMOGLOBIN 9.6 g/dL (13.5-17.0); MEAN CORPUSCULAR HEMOGLOBIN 32.7 pg (27.0-33.4); MEAN CORPUSCULAR VOLUME 96 fl (80-97); RED BLOOD COUNT 2.92 10^6/uL (4.35-5.55); RED CELL DISTRIBUTION WIDTH 14.9 % (11.5-14.0)
[2017-04-30 17:58] LABS: WHITE BLOOD COUNT 10.9 10^3/uL (4.0-10.5)
[2017-04-30 18:28] LABS: ABSOLUTE LYMPHOCYTES# (MANUAL) 2.7 10^3/uL (0.5-4.7); ABSOLUTE MONOCYTES # (MANUAL) 0.3 10^3/uL (0.1-1.4); ABSOLUTE NEUTROPHILS# (MANUAL) 7.7 10^3/uL (1.7-8.2); BAND NEUTROPHILS % (MANUAL) 5 % (3-5); BASOPHILS % (MANUAL) 0 % (0-2); EOSINOPHILS % (MANUAL) 0 % (0-6); LYMPHOCYTES % (MANUAL) 24 % (13-45); METAMYELOCYTES % (MANUAL) 1 % (0); MONOCYTES % (MANUAL) 3 % (3-13); MYELOCYTES % (MANUAL) 4 % (0); SEGMENTED NEUTROPHILS % (MAN) 60 % (42-78); TOTAL CELLS COUNTED 100
[2017-04-30 18:35] LABS: ANISOCYTOSIS SLIGHT; PLATELET COMMENT DECREASED; PLATELET COUNT 70 10^3/uL (150-450); POLYCHROMASIA SLIGHT; TOXIC GRANULATION SLIGHT
[2017-04-30 18:37] LABS: IMMATURE MONONUCLEAR% (MANUAL) 1 % (0); PROMYELOCYTES % (MANUAL) 1 % (0)
[2017-04-30] MEDS: TEMAZEPAM 15 MG CAPSULE PO SCH (21:19)
[2017-04-30] MEDS: MIRTAZAPINE 15 MG TABLET PO SCH (21:19)
[2017-05-01] MEDS: NORMAL SALINE 1000 ML 1,000 ML IV PRN ×2 (05:07→18:38)
[2017-05-01] MEDS: CLINDAMYCIN 900 MG/D5W RTU 50 ML IV SCH (05:08)
[2017-05-01] MEDS: NORMAL SALINE 10 ML SDV (AFTER EACH USE) IV PRN (05:09)
[2017-05-01] MEDS: HEPARIN SOD (PORCINE) 5,000 UNIT/ML 1 ML SYRINGE SUBCUT SCH ×3 (05:13→22:00)
[2017-05-01 05:32] LABS: HEMATOCRIT 27.3 % (37.9-51.0); HEMOGLOBIN 9.4 g/dL (13.5-17.0); MEAN CORPUSCULAR HEMOGLOBIN 32.8 pg (27.0-33.4); MEAN CORPUSCULAR HGB CONC 34.6 g/dL (32.0-36.0); MEAN CORPUSCULAR VOLUME 95 fl (80-97); RED BLOOD COUNT 2.88 10^6/uL (4.35-5.55); RED CELL DISTRIBUTION WIDTH 15.2 % (11.5-14.0); WHITE BLOOD COUNT 12.6 10^3/uL (4.0-10.5)
[2017-05-01 05:34] LABS: PLATELET COUNT 76 10^3/uL (150-450)
[2017-05-01 05:44] LABS: ALANINE AMINOTRANSFERASE 24 U/L (21-72); ALBUMIN 2.3 g/dL (3.5-5.0); ALKALINE PHOSPHATASE 143 U/L (38-126); ANION GAP 8 (5-19); ASPARTATE AMINO TRANSFERASE 24 U/L (17-59); BILIRUBIN,DIRECT 0.2 mg/dL (0.0-0.4); BILIRUBIN,TOTAL 0.3 mg/dL (0.2-1.3); BLOOD UREA NITROGEN 7 mg/dL (7-20); CALCIUM 7.9 mg/dL (8.4-10.2); CARBON DIOXIDE 27 mmol/L (22-30); CHLORIDE 103 mmol/L (98-107); GLUCOSE 115 mg/dL (75-110); POTASSIUM 3.4 mmol/L (3.6-5.0); SODIUM 138.3 mmol/L (137-145); TOTAL PROTEIN 4.8 g/dL (6.3-8.2)
[2017-05-01 05:52] LABS: ABSOLUTE LYMPHOCYTES# (MANUAL) 3.2 10^3/uL (0.5-4.7); ABSOLUTE MONOCYTES # (MANUAL) 0.9 10^3/uL (0.1-1.4); ABSOLUTE NEUTROPHILS# (MANUAL) 8.6 10^3/uL (1.7-8.2); BAND NEUTROPHILS % (MANUAL) 7 % (3-5); BASOPHILS % (MANUAL) 0 % (0-2); EOSINOPHILS % (MANUAL) 0 % (0-6); LYMPHOCYTES % (MANUAL) 21 % (13-45); METAMYELOCYTES % (MANUAL) 1 % (0); MONOCYTES % (MANUAL) 7 % (3-13); MYELOCYTES % (MANUAL) 1 % (0); SEGMENTED NEUTROPHILS % (MAN) 59 % (42-78); TOTAL CELLS COUNTED 100
[2017-05-01 05:54] LABS: ANISOCYTOSIS SLIGHT; PLATELET COMMENT DECREASED; TOXIC GRANULATION 2+; TOXIC VACUOLATION PRESENT
[2017-05-01] MEDS ORDERED: POTASSIUM CHLORIDE 10 MEQ TABLET.SA PO ONE (07:18)
[2017-05-01] MEDS: GUAIFENESIN 600 MG TABLET.SA PO SCH ×2 (10:14→21:55)
[2017-05-01] MEDS: ASPIRIN 81 MG TABLET, ENT COATED PO SCH (10:15)
[2017-05-01] MEDS: LEVETIRACETAM 500 MG TABLET PO SCH ×2 (10:15→21:55)
[2017-05-01] MEDS: NORMAL SALINE 10 ML SDV (SCHEDULED) IV SCH ×2 (10:16→21:56)
[2017-05-01] MEDS: CLINDAMYCIN HCL 150 MG CAPSULE PO SCH ×2 (13:54→21:55)
--- NOTE | 2017-05-01 14:37 | PDOC PROGRESS REPORT ---
Subjective Progress Note for:: 05/01/17 Subjective:: Patient refers that was able to sleep well last night and ate this morning. Nurse reports blood pressure in the 90s Reason For Visit: HYPERKALEMIA,ACUTE RESP FAILURE,PNEUMONIA,LUNG Physical Exam Vital Signs: Temp Pulse Resp BP Pulse Ox 98.5 F 101 H 19 95/37 L 92 05/01/17 04:07 05/01/17 04:07 05/01/17 04:07 05/01/17 04:07 05/01/17 04:07 Intake & Output 04/30/17 05/01/17 05/02/17 06:59 06:59 06:59 Intake Total 4167 3469 Output Total 2100 2700 Balance 2067 769 Weight 71.2 kg 72.4 kg General appearance: PRESENT: no acute distress, cooperative Head exam: PRESENT: atraumatic, normocephalic Eye exam: PRESENT: conjunctiva pink, EOMI, PERRLA Ear exam: PRESENT: normal external ear exam Mouth exam: PRESENT: moist, neck supple Neck exam: PRESENT: full ROM. ABSENT: JVD, tenderness Cardiovascular exam: PRESENT: RRR. ABSENT: diastolic murmur, systolic murmur Vascular exam: PRESENT: normal capillary refill GI/Abdominal exam: PRESENT: normal bowel sounds, soft. ABSENT: tenderness Neurological exam: PRESENT: alert, awake, oriented to person, oriented to place , oriented to time Psychiatric exam: PRESENT: appropriate affect, normal mood Results Laboratory Results: 05/01/17 05:04 05/01/17 05:04 04/30/17 04/30/17 04/30/17 05:25 10:50 17:35 WBC 10.9 H D RBC 2.92 L Hgb 9.6 L Hct 28.1 L MCV 96 MCH 32.7 MCHC 34.0 RDW 14.9 H Plt Count 70 L Seg Neutrophils % Not Reportable Lymphocytes % Not Reportable Monocytes % Not Reportable Eosinophils % Not Reportable Basophils % Not Reportable Absolute Neutrophils Not Reportable Absolute Lymphocytes Not Reportable Absolute Monocytes Not Reportable Absolute Eosinophils Not Reportable Absolute Basophils Not Reportable Sodium Potassium Chloride Carbon Dioxide Anion Gap BUN Creatinine Est GFR ( Amer) Est GFR (Non-Af Amer) Glucose Calcium Magnesium 1.6 Total Bilirubin AST ALT Alkaline Phosphatase Total Protein Albumin Blood Type A POSITIVE Antibody Screen NEGATIVE 05/01/17 05/01/17 05:04 05:04 WBC 12.6 H RBC 2.88 L Hgb 9.4 L Hct 27.3 L MCV 95 MCH 32.8 MCHC 34.6 RDW 15.2 H Plt Count 76 L Seg Neutrophils % Not Reportable Lymphocytes % Not Reportable Monocytes % Not Reportable Eosinophils % Not Reportable Basophils % Not Reportable Absolute Neutrophils Not Reportable Absolute Lymphocytes Not Reportable Absolute Monocytes Not Reportable Absolute Eosinophils Not Reportable Absolute Basophils Not Reportable Sodium 138.3 Potassium 3.4 L Chloride 103 Carbon Dioxide 27 Anion Gap 8 BUN 7 Creatinine 0.67 Est GFR ( Amer) > 60 Est GFR (Non-Af Amer) > 60 Glucose 115 H Calcium 7.9 L Magnesium Total Bilirubin 0.3 AST 24 ALT 24 Alkaline Phosphatase 143 H Total Protein 4.8 L Albumin 2.3 L Blood Type Antibody Screen 04/25/17 09:55 Blood Blood Culture - Final NO GROWTH IN 5 DAYS 04/25/17 08:50 Blood Blood Culture - Final NO GROWTH IN 5 DAYS 04/24/17 04/25/17 04:41 03:52 Creatine Kinase < 20 L < 20 L Impressions: Chest X-Ray 04/23/17 21:36 IMPRESSION: MASS IN THE LEFT LUNG UNCHANGED. PATCHY DENSITY IN THE RIGHT LOWER LOBE SUSPICIOUS FOR PNEUMONIA. Head CT 04/23/17 21:36 IMPRESSION: 1. MASS IN THE LEFT CEREBRAL HEMISPHERE WITH VASOGENIC EDEMA IN THE ADJACENT WHITE MATTER. SIMILAR APPEARANCE TO THE PREVIOUS MRI. 2. MILD ATROPHY AND WHITE MATTER CHANGE CONSISTENT WITH CHRONIC MICROVASCULAR ISCHEMIA. OLD LACUNAR INFARCTS. NO ACUTE FINDINGS. 3. SINUS DISEASE. EVIDENCE OF ACUTE STROKE: NO. Guidance Fluoroscopy 04/27/17 00:00 IMPRESSION: SUCCESSFUL PLACEMENT OF A 5 FR DUAL LUMEN 41 CM PICC IN THE LEFT BASILIC VEIN. Interventional Vascular Procedure 04/27/17 00:00 IMPRESSION: SUCCESSFUL PLACEMENT OF A 5 FR DUAL LUMEN 41 CM PICC IN THE LEFT BASILIC VEIN. PICC Line Insertion 04/27/17 00:00 IMPRESSION: SUCCESSFUL PLACEMENT OF A 5 FR DUAL LUMEN 41 CM PICC IN THE LEFT BASILIC VEIN. Assessment & Plan - Diagnosis (1) Acute renal failure Is this a current diagnosis for this admission?: Yes Plan: Resolved (2) Anemia Qualifiers: Anemia type: unspecified type Qualified Code(s): D64.9 - Anemia, unspecified Is this a current diagnosis for this admission?: Yes Plan: Improved after 1 packed red blood cell (3) Hypotension Qualifiers: Hypotension type: idiopathic hypotension Qualified Code(s): I95.0 - Idiopathic hypotension Is this a current diagnosis for this admission?: Yes Plan: Had been trending blood pressure during the past 3 days and his blood pressure fluctuates between upper 90s to low 100 (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 Is this a current diagnosis for this admission?: Yes Plan: As per oncology service (5) Neutropenia Qualifiers: Neutropenia type: secondary to cancer chemotherapy Qualified Code(s): D70.1 - Agranulocytosis secondary to cancer chemotherapy; T45.1X5A - Adverse effect of antineoplastic and immunosuppressive drugs, initial encounter; T45.1X5A - Adverse effect of antineoplastic and immunosuppressive drugs, initial encounter Is this a current diagnosis for this admission?: Yes Plan: Resolved (6) Right lower lobe pneumonia Qualifiers: Pneumonia type: due to unspecified organism Qualified Code(s): J18.1 - Lobar pneumonia, unspecified organism Is this a current diagnosis for this admission?: Yes Plan: To keep patient on Levaquin and clindamycin. Monitor for fever over the next 24 hours. (7) Severe sepsis Is this a current diagnosis for this admission?: Yes Plan: Resolved (8) Tachycardia Is this a current diagnosis for this admission?: Yes Plan: Improved over the past 3 days (9) Hypokalemia Is this a current diagnosis for this admission?: Yes Plan: Continue replacing orally and will trend in a.m. - Time Time Spent with patient: 15-24 minutes Medications reviewed and adjusted accordingly: Yes Anticipated discharge: Home Within: within 24 hours - Inpatient Certification Based on my medical assessment, after consideration of the patient's comorbidities, presenting symptoms, or acuity I expect that the services needed warrant INPATIENT care.: Yes I certify that my determination is in accordance with my understanding of Medicare's requirements for reasonable and necessary INPATIENT services [42 CFR 412.3e].: Yes Medical Necessity: Need Close Monitoring Due to Risk of Patient Decompensation
--- NOTE | 2017-05-01 15:33 | RADIOLOGY REPORT (SQ) ---
EXAM DESCRIPTION: CHEST PA/LAT COMPLETED DATE/TIME: 05/01/2017 3:09 pm REASON FOR STUDY: follow up pna COMPARISON: 04/23/2017 EXAM PARAMETERS: NUMBER OF VIEWS: two views TECHNIQUE: Digital Frontal and Lateral radiographic views of the chest acquired. RADIATION DOSE: NA LIMITATIONS: none FINDINGS: LUNGS AND PLEURA: Mass again identified left upper lobe with some new central lucencies. Stable right middle lobe airspace disease. New patchy left lower lobe opacity. MEDIASTINUM AND HILAR STRUCTURES: No masses or contour abnormalities. HEART AND VASCULAR STRUCTURES: Heart normal size. No evidence for failure. BONES: No acute findings. HARDWARE: Left-sided PICC terminates within the caval atrial junction. OTHER: No other significant finding. IMPRESSION: STABLE RIGHT MIDDLE LOBE AIRSPACE DISEASE. MASS LEFT UPPER LOBE WITH NEW CENTRAL LUCENCIES WHICH MAY BE SECONDARY TO CAVITATION OR PROCEDURE. C ORRELATE CLINICALLY. NEW PATCHY LEFT LOWER LOBE AIRSPACE DISEASE MAY REPRESENT METASTATIC DISEASE OR PROGRESSION OF PNEUMO NAYELY. TECHNICAL DOCUMENTATION: JOB ID: [id number] [employer]- All Rights Reserved
[2017-05-01] MEDS: LEVOFLOXACIN 750 MG TABLET PO SCH (15:54)
[2017-05-01] MEDS: MIRTAZAPINE 15 MG TABLET PO SCH (21:55)
[2017-05-01] MEDS: TEMAZEPAM 15 MG CAPSULE PO SCH (21:55)
[2017-05-02] MEDS: CLINDAMYCIN HCL 150 MG CAPSULE PO SCH (05:35)
[2017-05-02] MEDS: NORMAL SALINE 10 ML SDV (AFTER EACH USE) IV PRN (05:40)
[2017-05-02] MEDS: HEPARIN SOD (PORCINE) 5,000 UNIT/ML 1 ML SYRINGE SUBCUT SCH (05:41)
[2017-05-02 06:13] LABS: HEMATOCRIT 25.8 % (37.9-51.0); HEMOGLOBIN 8.9 g/dL (13.5-17.0); MEAN CORPUSCULAR HEMOGLOBIN 33.1 pg (27.0-33.4); MEAN CORPUSCULAR HGB CONC 34.6 g/dL (32.0-36.0); MEAN CORPUSCULAR VOLUME 96 fl (80-97); RED CELL DISTRIBUTION WIDTH 15.4 % (11.5-14.0); WHITE BLOOD COUNT 14.4 10^3/uL (4.0-10.5)
[2017-05-02 06:28] LABS: ALANINE AMINOTRANSFERASE 23 U/L (21-72); ALBUMIN 2.2 g/dL (3.5-5.0); ALKALINE PHOSPHATASE 133 U/L (38-126); ANION GAP 7 (5-19); ASPARTATE AMINO TRANSFERASE 21 U/L (17-59); BILIRUBIN,DIRECT 0.2 mg/dL (0.0-0.4); BILIRUBIN,TOTAL 0.2 mg/dL (0.2-1.3); BLOOD UREA NITROGEN 5 mg/dL (7-20); CALCIUM 7.8 mg/dL (8.4-10.2); CARBON DIOXIDE 27 mmol/L (22-30); CHLORIDE 103 mmol/L (98-107); GLUCOSE 123 mg/dL (75-110); MAGNESIUM 1.5 mg/dL (1.6-2.3); POTASSIUM 3.8 mmol/L (3.6-5.0); SODIUM 136.8 mmol/L (137-145); TOTAL PROTEIN 4.9 g/dL (6.3-8.2)
[2017-05-02 06:30] LABS: PLATELET COUNT 86 10^3/uL (150-450)
[2017-05-02 07:01] LABS: ABSOLUTE LYMPHOCYTES# (MANUAL) 3.2 10^3/uL (0.5-4.7); ABSOLUTE MONOCYTES # (MANUAL) 1.3 10^3/uL (0.1-1.4); ABSOLUTE NEUTROPHILS# (MANUAL) 9.9 10^3/uL (1.7-8.2); BAND NEUTROPHILS % (MANUAL) 7 % (3-5); BASOPHILS % (MANUAL) 0 % (0-2); EOSINOPHILS % (MANUAL) 0 % (0-6); LYMPHOCYTES % (MANUAL) 21 % (13-45); METAMYELOCYTES % (MANUAL) 1 % (0); MONOCYTES % (MANUAL) 9 % (3-13); MYELOCYTES % (MANUAL) 1 % (0); SEGMENTED NEUTROPHILS % (MAN) 60 % (42-78); TOTAL CELLS COUNTED 100
[2017-05-02] MEDS: NORMAL SALINE 1000 ML 1,000 ML IV PRN (07:02)
[2017-05-02 07:08] LABS: ANISOCYTOSIS SLIGHT; PLATELET COMMENT DECREASED; POLYCHROMASIA SLIGHT; TOXIC GRANULATION 2+
--- NOTE | 2017-05-02 07:44 | PDOC PROGRESS REPORT ---
Subjective Progress Note for:: 05/02/17 Subjective:: Mr. Gambino states that he is feeling fine. He remains anxious to go home and asks again if he will be able to today. He denies any problems. I asked him about Hospice and he states that he would like to continue active treatment for his cancer and that he is not ready for Hospice yet. Reason For Visit: HYPERKALEMIA,ACUTE RESP FAILURE,PNEUMONIA,LUNG Physical Exam Vital Signs: Temp Pulse Resp BP Pulse Ox 99.1 F 93 23 H 114/45 L 92 05/02/17 04:23 05/02/17 04:23 05/02/17 04:23 05/02/17 04:23 05/02/17 04:23 Intake & Output 05/01/17 05/02/17 05/03/17 06:59 06:59 06:59 Intake Total 3469 2943 Output Total 2700 Balance 769 2943 Weight 72.4 kg 74 kg General appearance: PRESENT: no acute distress, well-nourished Head exam: PRESENT: atraumatic Respiratory exam: PRESENT: unlabored Extremities exam: ABSENT: pedal edema Neurological exam: PRESENT: alert, awake Psychiatric exam: PRESENT: flat affect Skin exam: PRESENT: normal color Results Laboratory Results: 05/02/17 05:17 05/02/17 05:17 05/02/17 05/02/17 05:17 05:17 WBC 14.4 H RBC 2.70 L Hgb 8.9 L Hct 25.8 L MCV 96 MCH 33.1 MCHC 34.6 RDW 15.4 H Plt Count 86 L Seg Neutrophils % Not Reportable Lymphocytes % Not Reportable Monocytes % Not Reportable Eosinophils % Not Reportable Basophils % Not Reportable Absolute Neutrophils Not Reportable Absolute Lymphocytes Not Reportable Absolute Monocytes Not Reportable Absolute Eosinophils Not Reportable Absolute Basophils Not Reportable Sodium 136.8 L Potassium 3.8 Chloride 103 Carbon Dioxide 27 Anion Gap 7 BUN 5 L Creatinine 0.65 Est GFR ( Amer) > 60 Est GFR (Non-Af Amer) > 60 Glucose 123 H Calcium 7.8 L Magnesium 1.5 L Total Bilirubin 0.2 AST 21 ALT 23 Alkaline Phosphatase 133 H Total Protein 4.9 L Albumin 2.2 L 04/24/17 04/25/17 04:41 03:52 Creatine Kinase < 20 L < 20 L Impressions: Head CT 04/23/17 21:36 IMPRESSION: 1. MASS IN THE LEFT CEREBRAL HEMISPHERE WITH VASOGENIC EDEMA IN THE ADJACENT WHITE MATTER. SIMILAR APPEARANCE TO THE PREVIOUS MRI. 2. MILD ATROPHY AND WHITE MATTER CHANGE CONSISTENT WITH CHRONIC MICROVASCULAR ISCHEMIA. OLD LACUNAR INFARCTS. NO ACUTE FINDINGS. 3. SINUS DISEASE. EVIDENCE OF ACUTE STROKE: NO. Guidance Fluoroscopy 04/27/17 00:00 IMPRESSION: SUCCESSFUL PLACEMENT OF A 5 FR DUAL LUMEN 41 CM PICC IN THE LEFT BASILIC VEIN. Interventional Vascular Procedure 04/27/17 00:00 IMPRESSION: SUCCESSFUL PLACEMENT OF A 5 FR DUAL LUMEN 41 CM PICC IN THE LEFT BASILIC VEIN. PICC Line Insertion 04/27/17 00:00 IMPRESSION: SUCCESSFUL PLACEMENT OF A 5 FR DUAL LUMEN 41 CM PICC IN THE LEFT BASILIC VEIN. Chest X-Ray 05/01/17 00:00 IMPRESSION: STABLE RIGHT MIDDLE LOBE AIRSPACE DISEASE. MASS LEFT UPPER LOBE WITH NEW CENTRAL LUCENCIES WHICH MAY BE SECONDARY TO CAVITATION OR PROCEDURE. CORRELATE CLINICALLY. NEW PATCHY LEFT LOWER LOBE AIRSPACE DISEASE MAY REPRESENT METASTATIC DISEASE OR PROGRESSION OF PNEUMONIA. Assessment & Plan - Diagnosis (1) Lung cancer, lower lobe Qualifiers: Laterality: right Qualified Code(s): C34.31 - Malignant neoplasm of lower lobe, right bronchus or lung Is this a current diagnosis for this admission?: Yes Plan: s/p First cycle of chemotherapy after radiation to the brain. He would like to continue active treatment as outpatient. I am hopeful he will be able to follow -up in the office later this week to continue his treatment. (2) Neutropenia Qualifiers: Neutropenia type: secondary to cancer chemotherapy Qualified Code(s): D70.1 - Agranulocytosis secondary to cancer chemotherapy; T45.1X5A - Adverse effect of antineoplastic and immunosuppressive drugs, initial encounter; T45.1X5A - Adverse effect of antineoplastic and immunosuppressive drugs, initial encounter Is this a current diagnosis for this admission?: Yes Plan: Now resolved. (3) Hyperkalemia Is this a current diagnosis for this admission?: Yes (4) Severe sepsis Is this a current diagnosis for this admission?: Yes Plan: He has been afebrile for 48 hours and all cultures are negative, except one which may have been contaminate. His ANC has been >1 for over 48 hours. He is on appropriate oral antibiotics which may be continued as outpatient. (5) Thrombocytopenia Is this a current diagnosis for this admission?: Yes - Plan Summary Plan Summary: Patient is stable for discharge from my standpoint. Will arrange for follow-up later this week to continue cancer treatment. Please call me with concerns.
[2017-05-02 09:38] LABS: PATH REVIEW PATHOLOGIST REVIEWED
[2017-05-02 09:38] LABS: PATH REVIEW PATHOLOGIST REVIEWED
[2017-05-02] MEDS ORDERED: POTASSIUM CHLORIDE 10 MEQ TABLET.SA PO SCH (10:00)
[2017-05-02] MEDS: LEVETIRACETAM 500 MG TABLET PO SCH (10:02)
[2017-05-02] MEDS: ASPIRIN 81 MG TABLET, ENT COATED PO SCH (10:02)
[2017-05-02] MEDS: GUAIFENESIN 600 MG TABLET.SA PO SCH (10:02)
[2017-05-02] MEDS: NORMAL SALINE 10 ML SDV (SCHEDULED) IV SCH (10:05)
[2017-05-02 11:18] VITALS: BP 111/57
--- NOTE | 2017-05-02 12:40 | PDOC DISCHARGE SUMMARY ---
General - Admit/Disc Date/PCP Admission Date/Primary Care Provider: 04/24/17 01:24 TERESSA BOLDEN MD Discharge Date: 05/02/17 - Discharge Diagnosis (1) Severe sepsis Is this a current diagnosis for this admission?: Yes Summary: Secondary to pneumonia. The patient had one blood culture that grew out staph epi which was felt to be a contaminant. (2) Pneumonia Is this a current diagnosis for this admission?: Yes (3) Neutropenia Is this a current diagnosis for this admission?: Yes (4) Hyperkalemia Is this a current diagnosis for this admission?: Yes (5) Hypotension Is this a current diagnosis for this admission?: Yes Summary: Secondary to sepsis. (6) Lung cancer, lower lobe Is this a current diagnosis for this admission?: Yes (7) Coronary artery disease Is this a current diagnosis for this admission?: Yes (8) Acute renal failure Is this a current diagnosis for this admission?: Yes (9) Anemia Is this a current diagnosis for this admission?: Yes - Additional Information Resuscitation Status: Do Not Resuscitate Discharge Diet: Cardiac Discharge Activity: Activity As Tolerated Prescriptions: Clindamycin HCl [Cleocin 150 mg Capsule] 300 mg PO Q8 #15 capsule Levofloxacin [Levaquin 750 mg Tablet] 750 mg PO DAILY@1500 #5 tablet Potassium Chloride [Klor-Con 10 Meq Tablet.sa] 20 meq PO DAILY #30 tablet.sa Home Medications: Amlodipine Besylate [Norvasc 10 mg Tablet] 10 mg PO DAILY 04/24/17 Aspirin [Adult Low Dose Aspirin EC] 81 mg PO DAILY 04/24/17 Diclofenac Sodium [Voltaren 50 mg Tablet.dr] 50 mg PO DAILY 04/24/17 Levetiracetam [Keppra 500 mg Tablet] 500 mg PO BID 04/24/17 Lisinopril [Zestril] 20 mg PO DAILY 04/24/17 Ondansetron HCl [Zofran 8 mg Tablet] 8 mg PO Q8HP PRN 04/24/17 Promethazine HCl [Phenergan 25 mg Tablet] 25 mg PO Q4HP PRN 04/24/17 Propranolol HCl [Inderal LA] 60 mg PO DAILY 04/24/17 Temazepam [Restoril 15 mg Capsule] 15 mg PO QPM 04/24/17 Clindamycin HCl [Cleocin 150 mg Capsule] 300 mg PO Q8 #15 capsule 05/02/17 Levofloxacin [Levaquin 750 mg Tablet] 750 mg PO DAILY@1500 #5 tablet 05/02/17 Potassium Chloride [Klor-Con 10 Meq Tablet.sa] 20 meq PO DAILY #30 tablet.sa 06/18 History of Present Illness History of Present Illness: FLY SANTANA is a 66 year old male with history of known lung cancer who presented generalized weakness after having a fall. The patient was noted to be hypotensive along with pneumonia. The patient also had a head CT and was found to have metastatic lesions which was a new diagnosis. Patient was admitted with a diagnosis of sepsis secondary to pneumonia requiring vasopressors. Hospital Course Hospital Course: 66-year-old male with history of lung cancer who presented after having a fall and with generalized weakness. He was found to have sepsis secondary to pneumonia and required IV fluids and vasopressors. The patient's sepsis improved with treatment. The patient initially required vasopressors along with IV fluids because of the hypotension. He was admitted to the intensive care unit and was transferred to the floor once his blood pressures improved. The patient is being sent home on additional course of antibiotics for total of 14 days. The patient when he presented because of his fall had a head CT and was found to have brain metastases which is new. He was seen by oncology while hospitalized. They suggested possible palliative care although the patient wanted to continue with treatment. Patient will be discharged home and will follow with oncology in 1 week. Physical Exam Vital Signs: Temp Pulse Resp BP Pulse Ox 99.4 F 102 H 16 111/57 L 91 L 05/02/17 11:14 05/02/17 11:14 05/02/17 11:14 05/02/17 11:14 05/02/17 11:14 Intake & Output 05/01/17 05/02/17 05/03/17 06:59 06:59 06:59 Intake Total 3469 2943 Output Total 2700 Balance 769 2943 Weight 72.4 kg 74 kg General appearance: PRESENT: no acute distress Eye exam: PRESENT: conjunctiva pink. ABSENT: scleral icterus Ear exam: PRESENT: normal external ear exam Mouth exam: PRESENT: moist, tongue midline Neck exam: ABSENT: JVD Respiratory exam: PRESENT: clear to auscultation laura. ABSENT: rales, rhonchi, wheezes Cardiovascular exam: PRESENT: RRR. ABSENT: diastolic murmur, rubs, systolic murmur Pulses: PRESENT: normal dorsalis pedis pul GI/Abdominal exam: PRESENT: normal bowel sounds, soft. ABSENT: distended, guarding, mass, organolmegaly, rebound, tenderness Extremities exam: ABSENT: calf tenderness, clubbing, pedal edema Neurological exam: PRESENT: alert, awake, oriented to person, oriented to place , oriented to time, oriented to situation, CN II-XII grossly intact. ABSENT: motor sensory deficit Psychiatric exam: PRESENT: appropriate affect Skin exam: PRESENT: dry, intact, warm. ABSENT: cyanosis, rash Results Laboratory Results: 05/02/17 05:17 05/02/17 05:17 05/02/17 05/02/17 05: 05:17 WBC 14.4 H RBC 2.70 L Hgb 8.9 L Hct 25.8 L MCV 96 MCH 33.1 MCHC 34.6 RDW 15.4 H Plt Count 86 L Seg Neutrophils % Not Reportable Lymphocytes % Not Reportable Monocytes % Not Reportable Eosinophils % Not Reportable Basophils % Not Reportable Absolute Neutrophils Not Reportable Absolute Lymphocytes Not Reportable Absolute Monocytes Not Reportable Absolute Eosinophils Not Reportable Absolute Basophils Not Reportable Sodium 136.8 L Potassium 3.8 Chloride 103 Carbon Dioxide 27 Anion Gap 7 BUN 5 L Creatinine 0.65 Est GFR ( Amer) > 60 Est GFR (Non-Af Amer) > 60 Glucose 123 H Calcium 7.8 L Magnesium 1.5 L Total Bilirubin 0.2 AST 21 ALT 23 Alkaline Phosphatase 133 H Total Protein 4.9 L Albumin 2.2 L 04/24/17 04/25/17 04:41 03:52 Creatine Kinase < 20 L < 20 L Impressions: Head CT 04/23/17 21:36 IMPRESSION: 1. MASS IN THE LEFT CEREBRAL HEMISPHERE WITH VASOGENIC EDEMA IN THE ADJACENT WHITE MATTER. SIMILAR APPEARANCE TO THE PREVIOUS MRI. 2. MILD ATROPHY AND WHITE MATTER CHANGE CONSISTENT WITH CHRONIC MICROVASCULAR ISCHEMIA. OLD LACUNAR INFARCTS. NO ACUTE FINDINGS. 3. SINUS DISEASE. EVIDENCE OF ACUTE STROKE: NO. Guidance Fluoroscopy 04/27/17 00:00 IMPRESSION: SUCCESSFUL PLACEMENT OF A 5 FR DUAL LUMEN 41 CM PICC IN THE LEFT BASILIC VEIN. Interventional Vascular Procedure 04/27/17 00:00 IMPRESSION: SUCCESSFUL PLACEMENT OF A 5 FR DUAL LUMEN 41 CM PICC IN THE LEFT BASILIC VEIN. PICC Line Insertion 04/27/17 00:00 IMPRESSION: SUCCESSFUL PLACEMENT OF A 5 FR DUAL LUMEN 41 CM PICC IN THE LEFT BASILIC VEIN. Chest X-Ray 05/01/17 00:00 IMPRESSION: STABLE RIGHT MIDDLE LOBE AIRSPACE DISEASE. MASS LEFT UPPER LOBE WITH NEW CENTRAL LUCENCIES WHICH MAY BE SECONDARY TO CAVITATION OR PROCEDURE. CORRELATE CLINICALLY. NEW PATCHY LEFT LOWER LOBE AIRSPACE DISEASE MAY REPRESENT METASTATIC DISEASE OR PROGRESSION OF PNEUMONIA. Qualifiers PATEINT BEING DISCHARGED WITH ANY OF THE FOLLOWING DIAGNOSIS?: No Plan Discharge Plan: Patient is discharged home in stable condition. Will follow-up with oncology in 1 week. Time Spent: Greater than 30 Minutes
== END 2017-05-02 12:36 | disposition home or self-care (01) | DRG 871 ==
LOC: ER 21:24 → EH 04-24 01:24 → ICU 04-24 04:04 → 3S 04-28 16:20
PROVIDERS: ADMIT Internal Medicine; ATTEND Internal Medicine
PROC: 30233R1 Transfusion of Nonautologous Platelets into Peripheral Vein, Percutaneous Approach (ICD-10-PCS; principal; 2017-04-27)
PROC: 02HV33Z Insertion of Infusion Device into Superior Vena Cava, Percutaneous Approach (ICD-10-PCS; 2017-04-27)
PROC: B518ZZA Fluoroscopy of Superior Vena Cava, Guidance (ICD-10-PCS; 2017-04-27)
PROC: B548ZZA Ultrasonography of Superior Vena Cava, Guidance (ICD-10-PCS; 2017-04-27)
PROC: 30233N1 Transfusion of Nonautologous Red Blood Cells into Peripheral Vein, Percutaneous Approach (ICD-10-PCS; 2017-04-30)
DX: A41.9 Sepsis, unspecified organism (principal); J69.0 Pneumonitis due to inhalation of food and vomit; J96.00 Acute respiratory failure, unspecified whether with hypoxia or hypercapnia; C34.31 Malignant neoplasm of lower lobe, right bronchus or lung; C79.31 Secondary malignant neoplasm of brain; N17.9 Acute kidney failure, unspecified; I69.351 Hemiplegia and hemiparesis following cerebral infarction affecting right dominant side; Z66 Do not resuscitate; R65.20 Severe sepsis without septic shock; E87.5 Hyperkalemia; D70.1 Agranulocytosis secondary to cancer chemotherapy; N18.3 Chronic kidney disease, stage 3 (moderate); D63.0 Anemia in neoplastic disease; I12.9 Hypertensive chronic kidney disease with stage 1 through stage 4 chronic kidney disease, or unspecified chronic kidney disease; I95.0 Idiopathic hypotension; T45.1X5A Adverse effect of antineoplastic and immunosuppressive drugs, initial encounter; Z79.82 Long term (current) use of aspirin; Z79.899 Other long term (current) drug therapy; I69.328 Other speech and language deficits following cerebral infarction
CPT/HCPCS: 36415; 36430; 36569; 70450; 71010; 71046; 76937; 77001; 80048; 80053; 80202; 81001; 82272; 82550; 82565; 82803; 83605; 83735; 84484; 85025; 85610; 86850; 86900; 86901; 86920; 87040; 87045; 87077; 87086; 87186; 87205; 87493; 89055; 93005; 93010; 94640; 94660; 94667; 94668; 96365; 96366; 96368; 96375; 99291; G8978-GP; G8979-GP; J0610; J0692; J1642; J1644; J1720; J1815; J2543; J3370; J3490; J7030; J7060; J7620; P9016; P9035

== ENCOUNTER → 2017-06-22 | Outpatient (CLI) | payer OTHER ==
--- NOTE | 2017-06-22 10:00 | RADIOLOGY REPORT (SQ) ---
EXAM DESCRIPTION: MRI HEAD COMBO COMPLETED DATE/TIME: 06/22/2017 9:04 am REASON FOR STUDY: *COMPARE TO PREVIOUS* LUNG CA, BRAIN METS (C34.12) C34.12 MALIGNANT NEOPLASM OF U PPER LOBE, LEFT BRONCHUS OR FAYE COMPARISON: MRI brain 03/03/2017 TECHNIQUE: Multiplanar imaging includes noncontrasted T1, T2, FLAIR, diffusion with ADC map and post gadolinium contrast T1 sequences. Images stored on PACS. CONTRAST TYPE AND DOSE: 15 mL Multihance. RENAL FUNCTION: GFR > 60. LIMITATIONS: None. FINDINGS: ANATOMY: No developmental anomalies. Normal vascular flow voids. Pituitary fossa normal. CSF SPACES: Normal in size and contour. No hemorrhage. CEREBRUM: The left posterior frontal 2 x 1.7 cm peripheral rim enhancing metastatic lesion with surro unding edema seen on 03/03/2017 has significantly decreased in size. On today's study, an 8 mm focus of mixed T1 and T2 signal without contrast enhancement is present at the nascimento-white junction left pos terior frontal lobe. No new brain parenchymal enhancing nodules. There are multiple stable hemispheric infarcts as follows: Right occipital lobe image 12 Left caudate image 18 Left posterior frontal cortex and subcortical white matter axial images 18-23 POSTERIOR FOSSA: Old right cerebellar infarct axial image 10. Old left brainstem infarct extending a nd up into the left thalamus axial image 14 and 15. No masses or enhancement. No hemorrhage. 4th v entricle, posterior fossa CSF spaces are unremarkable DIFFUSION IMAGING: Negative for acute or subacute infarction. ORBITS: No masses. Globes normal. PARANASAL SINUSES: Right maxillary sinus mucous membrane thickening. Small amount of fluid in the bi lateral mastoid air cells OTHER: No other significant finding. IMPRESSION: Treatment response, left frontal brain metastatic lesion. There is now an 8 mm non enha ncing nodule with hemorrhagic staining in the left posterior frontal lobe. Multiple old infarcts bilaterally as above EVIDENCE OF ACUTE STROKE: NO. TECHNICAL DOCUMENTATION: JOB ID: [id number]- All Rights Reserved
== END ==
LOC: RAD 07:52
PROVIDERS: ATTEND Internal Medicine Hematology & Oncology
DX: C79.31 Secondary malignant neoplasm of brain (principal); C34.12 Malignant neoplasm of upper lobe, left bronchus or lung
CPT/HCPCS: 82565; 70553; A9577

== ENCOUNTER → 2017-07-13 | Outpatient (CLI) | payer MEDICARE, OTHER ==
--- NOTE | 2017-07-13 16:08 | RADIOLOGY REPORT (SQ) ---
EXAM DESCRIPTION: CT CHEST WITH COMPLETED DATE/TIME: 07/13/2017 3:09 pm REASON FOR STUDY: C34.12 MALIGNANT NEOPLASM OF UPPER LOBE, LEFT BRONCHUS OR LUNG C79.31SECOND C34.12 MALIGNANT NEOPLASM OF UPPER LOBE, LEFT BRONCHUS OR FAYE C79.31 SECONDARY MALIGNANT NEOPLASM OF BRAIN COMPARISON: 02/24/2017. TECHNIQUE: CT scan of the chest performed using helical scanning technique with dynamic intravenous contrast injection. Images reviewed with lung, soft tissue and bone windows. Reconstructed coronal and sagittal MPR images reviewed. All images stored on PACS. All CT scanners at this facility use dose modulation, iterative reconstruction, and/or weight based d osing when appropriate to reduce radiation dose to as low as reasonably achievable (ALARA). [facility]: Dose Right [facility]: CareDose [facility]: Dose Right [facility]: Teradose 4D [facility]: [employer] CONTRAST TYPE AND DOSE: contrast/concentration: Isovue 370.00 mg/ml; Total Contrast Delivered: 80.0 ml; Total Saline Delivered: 55.0 ml RENAL FUNCTION: Creatinine 0.9. RADIATION DOSE: CT Rad equipment meets quality standard of care and radiation dose reduction techniq ues were employed. CTDIvol: 10.3 mGy. DLP: 407 mGy-cm. . LIMITATIONS: None. FINDINGS: LUNGS AND PLEURA: The mass in the lateral left upper lobe has decreased in size. Current transverse measurements are 2.3 x 4.2 cm with prior measurements of 3.2 x 5.5 cm. There is prominent irregular cavitation within the mass. No new nodules or masses. Mild atelectasis or scarring in th e right middle lobe. No pneumothorax. No effusions. HILAR AND MEDIASTINAL STRUCTURES: No identified masses or abnormal nodes. HEART AND VASCULAR STRUCTURES: No aneurysm or dissection. No central pulmonary emboli. Trace perica rdial effusion. HARDWARE: None in the chest. UPPER ABDOMEN: No significant findings. Limited exam. THYROID AND OTHER SOFT TISSUES: No masses. No adenopathy. BONES: No significant finding. OTHER: No other significant finding. IMPRESSION: MASS IN THE LATERAL LEFT UPPER LOBE HAS DECREASED IN SIZE AND NOW HAS CONSIDERABLE AREAS OF CAVITATION. NO NEW NODULES OR MASSES. NO ADENOPATHY. TECHNICAL DOCUMENTATION: JOB ID: [id number] Quality ID # [id number]: Final reports with documentation of one or more dose reduction techniques (e.g., Au tomated exposure control, adjustment of the mA and/or kV according to patient size, use of iterative reconstruction technique) 2010 [employer]- All Rights Reserved Reading location - IP/workstation name: [email or web address]
== END ==
LOC: RAD 15:04
PROVIDERS: ATTEND Radiology Radiation Oncology
DX: C34.12 Malignant neoplasm of upper lobe, left bronchus or lung (principal); C79.31 Secondary malignant neoplasm of brain
CPT/HCPCS: 71260; 82565

== ENCOUNTER → 2017-07-20 | Outpatient (CLI) | payer MEDICARE, OTHER ==
--- NOTE | 2017-07-20 16:20 | RADIOLOGY REPORT (SQ) ---
EXAM DESCRIPTION: CT LUMBAR SPINE WITHOUT COMPLETED DATE/TIME: 07/20/2017 12:46 pm REASON FOR STUDY: LUNG CA (C34.12), SECONDARY BRAIN CA (C79.31), BACK PAIN C34.12 MALIGNANT NEOPLAS M OF UPPER LOBE, LEFT BRONCHUS OR FAYE COMPARISON: None. TECHNIQUE: Axial images acquired through the lumbar spine without intravenous contrast. Images revi ewed with lung, soft tissue and bone windows. Reconstructed coronal and sagittal MPR images reviewed . All images stored on PACS. All CT scanners at this facility use dose modulation, iterative reconstruction, and/or weight based d osing when appropriate to reduce radiation dose to as low as reasonably achievable (ALARA). [facility]: Dose Right [facility]: CareDose [facility]: Dose Right [facility]: Teradose 4D [facility]: [employer] RADIATION DOSE: CT Rad equipment meets quality standard of care and radiation dose reduction techniq ues were employed. CTDIvol: 14.8 mGy. DLP: 444 mGy-cm. mGy. LIMITATIONS: None. FINDINGS: SEGMENTATION: Normal. No transitional anatomy. ALIGNMENT: Normal. VERTEBRAL BODIES: No acute findings. There is mild dishing of the endplates of L5 and in the inferio r endplate of L4. DISCS: Disc spaces are maintained. There is a relatively shallow left paracentral disc bulge that ca n be seen on image 70 series 4 at L4-5. This does not narrow the neural foramen. It is possible huma t the traversing nerve root could be displaced dorsally on the left side. There is mild broad-based disc bulge at L5-S1 with no central canal or foraminal stenosis. PEDICLES, TRANSVERSE PROCESSES: No fractures. No dislocation. No acute findings. FACETS, POSTERIOR ELEMENTS: Mild hypertrophic facet changes are present at L5-S1 HARDWARE: None in the spine. VISUALIZED RIBS: No fractures. SOFT TISSUES: No significant or acute finding in adjacent soft tissues. OTHER: No other significant finding. IMPRESSION: There is a left paracentral disc bulge that indents the thecal sac. There is shallow br oad-based disc bulge at L5-S1 with no significant stenosis. There is mild facet arthropathy. TECHNICAL DOCUMENTATION: JOB ID: [id number] Quality ID # [id number]: Final reports with documentation of one or more dose reduction techniques (e.g., Au tomated exposure control, adjustment of the mA and/or kV according to patient size, use of iterative reconstruction technique) 2010 [employer]- All Rights Reserved Reading location - IP/workstation name: [email or web address]
== END ==
LOC: RAD 12:32
PROVIDERS: ATTEND Radiology Radiation Oncology
DX: C34.12 Malignant neoplasm of upper lobe, left bronchus or lung (principal); C79.31 Secondary malignant neoplasm of brain; M51.86 Other intervertebral disc disorders, lumbar region
CPT/HCPCS: 72131

== ENCOUNTER 2017-07-25 06:36 | Day surgery (SDC) | payer MEDICARE, OTHER ==
[~2017-07-25 06:36] MED LIST changes: +DIAZEPAM 5 MG TABLET ONE; -DIAZEPAM 5 MG TABLET PO PRN; +DIAZEPAM 5 MG TABLET PO SCH; -OXYCODONE-ACETAMINOPHEN 5-325 MG TABLET PO PRN; +OXYCODONE-ACETAMINOPHEN 5-325 MG TABLET PO SCH
[2017-07-25] MEDS ORDERED: OXYCODONE-ACETAMINOPHEN 5-325 MG TABLET ONE (06:37)
[2017-07-25] MEDS ORDERED: CEFAZOLIN 1 GM/D5W RTU 1 GM/50 ML RTUPB IV ONE (06:37)
[2017-07-25 06:55] LABS: HEMOGLOBIN 9.4 g/dL (13.5-17.0); MEAN CORPUSCULAR HEMOGLOBIN 38.1 pg (27.0-33.4); MEAN CORPUSCULAR HGB CONC 34.7 g/dL (32.0-36.0); MEAN CORPUSCULAR VOLUME 110 fl (80-97); PLATELET COUNT 137 10^3/uL (150-450); RED BLOOD COUNT 2.46 10^6/uL (4.35-5.55); RED CELL DISTRIBUTION WIDTH 18.2 % (11.5-14.0)
[2017-07-25 07:14] LABS: ANION GAP 12 (5-19); BLOOD UREA NITROGEN 19 mg/dL (7-20); CALCIUM 8.6 mg/dL (8.4-10.2); CARBON DIOXIDE 23 mmol/L (22-30); CHLORIDE 97 mmol/L (98-107); GLUCOSE 122 mg/dL (75-110); POTASSIUM 4.3 mmol/L (3.6-5.0); SODIUM 132.3 mmol/L (137-145)
[2017-07-25 07:33] LABS: WHITE BLOOD COUNT 1.5 10^3/uL (4.0-10.5)
[2017-07-25] MEDS ORDERED: LIDOCAINE 0.5% INJ-PF (5 MG/ML) 50 ML SDV ONE ×2 (07:38→10:36)
[2017-07-25] MEDS ORDERED: HEPARIN SODIUM,PORCINE/NS/PF 0 UNIT/0 ML RTUINJ IV ONE (07:39)
[2017-07-25] MEDS ORDERED: FENTANYL CITRATE INJ/PF 100 MCG/2 ML AMPUL ONE ×2 (07:39→10:37)
[2017-07-25] MEDS ORDERED: BACITRACIN INJ 50,000 UNIT VIAL ONE ×2 (07:39→10:37)
[2017-07-25] MEDS ORDERED: MIDAZOLAM 2 MG/2 ML INJ ONE ×2 (07:39→10:37)
--- NOTE | 2017-07-25 08:26 | RADIOLOGY REPORT (SQ) ---
EXAM DESCRIPTION: CHEST SINGLE VIEW COMPLETED DATE/TIME: 07/25/2017 7:34 am REASON FOR STUDY: pre-op COMPARISON: 05/01/2017 EXAM PARAMETERS: NUMBER OF VIEWS: One view. TECHNIQUE: Single frontal radiographic view of the chest acquired. RADIATION DOSE: NA LIMITATIONS: Positioning. FINDINGS: LUNGS AND PLEURA: Stable pleural-based cavitary mass in the left lung. Subsegmental airsp soheila disease in the middle lobe. No large effusions. MEDIASTINUM AND HILAR STRUCTURES: Stable. HEART AND VASCULAR STRUCTURES: Stable heart size. BONES: No acute findings. HARDWARE: None in the chest. OTHER: No other significant finding. IMPRESSION: Stable cavitary mass in the left upper lobe. TECHNICAL DOCUMENTATION: JOB ID: [id number] [employer]- All Rights Reserved Reading location - IP/workstation name: [email or web address]
[2017-07-25 10:18] LABS: ALANINE AMINOTRANSFERASE 20 U/L (21-72); ALBUMIN 3.2 g/dL (3.5-5.0); ALKALINE PHOSPHATASE 73 U/L (38-126); ASPARTATE AMINO TRANSFERASE 22 U/L (17-59); BILIRUBIN,DIRECT 0.7 mg/dL (0.0-0.4); BILIRUBIN,TOTAL 0.9 mg/dL (0.2-1.3); TOTAL PROTEIN 6.1 g/dL (6.3-8.2)
[2017-07-25 10:24] LABS: ANION GAP 12 (5-19); BLOOD UREA NITROGEN 19 mg/dL (7-20); CALCIUM 8.6 mg/dL (8.4-10.2); CARBON DIOXIDE 23 mmol/L (22-30); CHLORIDE 97 mmol/L (98-107); GLUCOSE 122 mg/dL (75-110); POTASSIUM 4.3 mmol/L (3.6-5.0); SODIUM 132.3 mmol/L (137-145)
[2017-07-25 10:28] LABS: ABSOLUTE LYMPHOCYTES# (MANUAL) 0.4 10^3/uL (0.5-4.7); ABSOLUTE MONOCYTES # (MANUAL) 0.1 10^3/uL (0.1-1.4); ABSOLUTE NEUTROPHILS# (MANUAL) 1.1 10^3/uL (1.7-8.2); ANISOCYTOSIS 1+; BASOPHILS % (MANUAL) 0 % (0-2); EOSINOPHILS % (MANUAL) 2 % (0-6); LYMPHOCYTES % (MANUAL) 24 % (13-45); MONOCYTES % (MANUAL) 4 % (3-13); SEGMENTED NEUTROPHILS % (MAN) 70 % (42-78); TOTAL CELLS COUNTED 50
[2017-07-25 10:29] LABS: PLATELET COMMENT DECREASED
[2017-07-25 12:03] VITALS: BP 100/51
== END 2017-07-25 11:40 | disposition home or self-care (01) ==
LOC: ASU 06:36
PROVIDERS: ATTEND Surgery
DX: Z01.818 Encounter for other preprocedural examination (principal); Z53.9 Procedure and treatment not carried out, unspecified reason; C34.12 Malignant neoplasm of upper lobe, left bronchus or lung; I21.9 Acute myocardial infarction, unspecified; I10 Essential (primary) hypertension; E78.00 Pure hypercholesterolemia, unspecified; I63.9 Cerebral infarction, unspecified; K85.90 Acute pancreatitis without necrosis or infection, unspecified; Z79.82 Long term (current) use of aspirin
CPT/HCPCS: 36415; 85025; 80053; 71045; J3490 ×2; J0690; A9270 ×2; J1644; 80048; J2250; J3010

== ENCOUNTER 2017-07-26 08:33 | Inpatient (IN) | payer MEDICARE, OTHER ==
--- NOTE | 2017-07-26 09:31 | ER Document Report ---
ED Dizziness/Weakness - General Chief Complaint: Nose Bleed Stated Complaint: NOSE BLEED Time Seen by Provider: 07/26/17 09:27 Notes: History of present illness-66 years old male who was diagnosed with lung cancer , on chemotherapy in between chemotherapy get very weak, this morning he tried to get up and go to the bathroom after a few steps felt weak and fell down and hit the face on the ground. Since then having blood from the nostrils per particularly on the right side. But denies any headache denies any facial pain. Denies any neck pain neck stiffness. He was having difficulty in breathing therefore he was put on oxygen and brought him to the ER. Denies any constitutional symptoms. Denies any abdominal pain nausea vomiting. REVIEW OF SYSTEMS: CONSTITUTIONAL : Denies fever, chills, or sweats. Denies recent illness. EENT: Denies eye, ear, throat, or mouth pain or symptoms. Denies nasal or sinus congestion or discharge. Denies throat, tongue, or mouth swelling or difficulty swallowing. CARDIOVASCULAR: Denies chest pain. Denies palpitations or racing or irregular heart beat. Denies ankle edema. RESPIRATORY: As per history of complain GASTROINTESTINAL: Denies abdominal pain or distention. Denies nausea, vomiting , or diarrhea. Denies blood in vomitus, stools, or per rectum. Denies black, tarry stools. Denies constipation. GENITOURINARY: Denies difficulty urinating, painful urination, burning, frequency, blood in urine, or discharge. MUSCULOSKELETAL: Denies back or neck pain or stiffness. Denies joint pain or swelling. SKIN: Denies rash, lesions or sores. HEMATOLOGIC : Denies easy bruising or bleeding. LYMPHATIC: Denies swollen, enlarged glands. NEUROLOGICAL: Denies confusion or altered mental status. Denies passing out or loss of consciousness. Denies dizziness or lightheadedness. Denies headache. Denies weakness or paralysis or loss of use of either side. Denies problems with gait or speech. Denies sensory loss, numbness, or tingling. Denies seizures. PSYCHIATRIC: Denies anxiety or stress. Denies depression, suicidal ideation, or homicidal ideation. ALL OTHER SYSTEMS REVIEWED AND NEGATIVE. Dictation was performed using [employer] voice recognition software PHYSICAL EXAMINATION: GENERAL: Not in any distress, right nostril as well as back HEAD: Atraumatic, normocephalic. EYES: Pupils equal round and reactive to light, extraocular movements intact, sclera anicteric, conjunctiva are normal. ENT: Right no nasal tenderness and old dried blood noted, facial tenderness on the right side noted., oropharynx clear without exudates. Moist mucous membranes. NECK: Normal range of motion, supple without lymphadenopathy LUNGS: Stony dullness on the right side of the lung field, with no breath sounds. Left side diminished breath sounds. HEART: Regular rate and rhythm without murmurs ABDOMEN: Soft, nontender, nondistended abdomen. No guarding, no rebound. No masses appreciated. Musculoskeletal: Normal range of motion, no pitting or edema. No cyanosis. NEUROLOGICAL: Cranial nerves grossly intact. Normal speech, normal gait. Normal sensory, motor exams PSYCH: Normal mood, normal affect. SKIN: Warm, Dry, normal turgor, no rashes or lesions noted. TRAVEL OUTSIDE OF THE [place] IN LAST 30 DAYS: Yes - HPI Patient complains to provider of: Dizziness Onset/Duration: Gradual - Related Data Allergies/Adverse Reactions: No Known Allergies Allergy (Verified 07/26/17 08:54) Past Medical History - Social History Smoking Status: Unknown if Ever Smoked Chew tobacco use (# tins/day): No Frequency of alcohol use: None Drug Abuse: None Family History: Reviewed & Not Pertinent Patient has suicidal ideation: No Patient has homicidal ideation: No - Past Medical History Cardiac Medical History: Reports: Hx Heart Attack, Hx Hypertension Denies: Hx Coronary Artery Disease Pulmonary Medical History: Denies: Hx Asthma, Hx Bronchitis, Hx COPD, Hx Pneumonia Neurological Medical History: Reports: Hx Cerebrovascular Accident - 2006. Denies: Hx Seizures Renal/ Medical History: Denies: Hx Peritoneal Dialysis Musculoskeltal Medical History: Reports Hx Arthritis - Immunizations Hx Diphtheria, Pertussis, Tetanus Vaccination: No Review of Systems - Review of Systems Notes: As per history of complain Physical Exam - Vital signs Vitals: Temp Pulse Pulse Ox 99.9 F 125 H 80 L 07/26/17 08:37 07/26/17 08:37 07/26/17 08:37 Course - Re-evaluation Re-evalutation: 07/26/17 14:53 Given IV antibiotic - Vital Signs Vital signs: Temp Pulse Resp BP Pulse Ox 99.9 F 125 H 19 105/73 94 07/26/17 08:37 07/26/17 08:37 07/26/17 13:01 07/26/17 13:00 07/26/17 13:01 - Laboratory Result Diagrams: 07/26/17 08:50 07/26/17 08:50 Laboratory results interpreted by me: 07/26/17 07/26/17 07/26/17 08:50 08:50 08:50 WBC 0.4 L* D RBC 2.28 L Hgb 8.7 L Hct 25.0 L MCV 110 H MCH 38.3 H RDW 18.0 H Plt Count 81 L Seg Neutrophils % 16.1 L Lymphocytes % 57.4 H Monocytes % 26.5 H Absolute Neutrophils 0.1 L Absolute Lymphocytes 0.2 L PT 15.9 H Carbonic Acid ABG pH ABG pCO2 ABG pO2 ABG HCO3 ABG Total CO2 ABG O2 Saturation Sodium 132.7 L Chloride 97 L Glucose 113 H POC Glucose Lactic Acid Direct Bilirubin 0.6 H Total Protein 5.8 L Albumin 3.3 L Urine Protein Urine Ketones Urine Blood Urine Urobilinogen 07/26/17 07/26/17 07/26/17 08:50 09:44 10:25 WBC RBC Hgb Hct MCV MCH RDW Plt Count Seg Neutrophils % Lymphocytes % Monocytes % Absolute Neutrophils Absolute Lymphocytes PT Carbonic Acid 0.76 L ABG pH 7.49 H ABG pCO2 25.3 L ABG pO2 102.3 H ABG HCO3 18.9 L ABG Total CO2 19.7 L ABG O2 Saturation 98.2 H Sodium Chloride Glucose POC Glucose 113 H Lactic Acid 2.4 H Direct Bilirubin Total Protein Albumin Urine Protein Urine Ketones Urine Blood Urine Urobilinogen 07/26/17 12:05 WBC RBC Hgb Hct MCV MCH RDW Plt Count Seg Neutrophils % Lymphocytes % Monocytes % Absolute Neutrophils Absolute Lymphocytes PT Carbonic Acid ABG pH ABG pCO2 ABG pO2 ABG HCO3 ABG Total CO2 ABG O2 Saturation Sodium Chloride Glucose POC Glucose Lactic Acid Direct Bilirubin Total Protein Albumin Urine Protein 30 H Urine Ketones TRACE H Urine Blood SMALL H Urine Urobilinogen 4.0 H - Diagnostic Test Radiology reviewed: Reports reviewed - 1. CT of the head reported by radiologist as normal 2. CT of the facial bone reported by radiologist as normal 3. Chest x-ray reported by radiologist as persistent change in type mass no change 4. CT of the chest reported by radiologist as persistent mass in left middle lobe and lower lobe infiltration/pneumonia - EKG Interpretation by Wi EKG shows normal: Sinus rhythm Rate: Tachycardia - Normal sinus rhythm at sinus tach at 117 bpm normal axis no acute ST elevation ST depression T-wave inversion noted. Critical Care Note - Critical Care Note Total time excluding time spent on procedures (mins): 60 Comments: Management of hypoxia, lung cancer, pneumonia. Sepsis. Discharge - Discharge Clinical Impression: Hypoxia, Epistaxis, Pneumonia, Thrombocytopenia Sepsis Qualifiers: Sepsis type: sepsis due to unspecified organism Qualified Code(s): A41.9 - Sepsis, unspecified organism Facial injury Qualifiers: Encounter type: initial encounter Qualified Code(s): S09.93XA - Unspecified injury of face, initial encounter Lung cancer Qualifiers: Laterality: right Lung location: upper lobe of lung Qualified Code(s): C34.11 - Malignant neoplasm of upper lobe, right bronchus or lung Neutropenia Qualifiers: Neutropenia type: secondary to cancer chemotherapy Qualified Code(s): D70.1 - Agranulocytosis secondary to cancer chemotherapy; T45.1X5A - Adverse effect of antineoplastic and immunosuppressive drugs, initial encounter; T45.1X5A - Adverse effect of antineoplastic and immunosuppressive drugs, initial encounter Condition: Serious Admitting Provider: Hospitalist Unit Admitted: [facility]
[2017-07-26 09:53] LABS: ALANINE AMINOTRANSFERASE 24 U/L (21-72); ALBUMIN 3.3 g/dL (3.5-5.0); ALKALINE PHOSPHATASE 91 U/L (38-126); ANION GAP 13 (5-19); ASPARTATE AMINO TRANSFERASE 26 U/L (17-59); BILIRUBIN,DIRECT 0.6 mg/dL (0.0-0.4); BLOOD UREA NITROGEN 18 mg/dL (7-20); CALCIUM 8.4 mg/dL (8.4-10.2); CARBON DIOXIDE 23 mmol/L (22-30); CHLORIDE 97 mmol/L (98-107); GLUCOSE 113 mg/dL (75-110); POTASSIUM 4.3 mmol/L (3.6-5.0); SODIUM 132.7 mmol/L (137-145); TOTAL PROTEIN 5.8 g/dL (6.3-8.2)
[2017-07-26 09:55] LABS: HEMOGLOBIN 8.7 g/dL (13.5-17.0); MEAN CORPUSCULAR HEMOGLOBIN 38.3 pg (27.0-33.4); MEAN CORPUSCULAR HGB CONC 34.8 g/dL (32.0-36.0); MEAN CORPUSCULAR VOLUME 110 fl (80-97); RED BLOOD COUNT 2.28 10^6/uL (4.35-5.55)
--- NOTE | 2017-07-26 10:08 | RADIOLOGY REPORT (SQ) ---
EXAM DESCRIPTION: CHEST SINGLE VIEW COMPLETED DATE/TIME: 07/26/2017 9:59 am REASON FOR STUDY: diminished lung sound, lower right lobe COMPARISON: 07/25/2017 EXAM PARAMETERS: NUMBER OF VIEWS: One view. TECHNIQUE: Single frontal radiographic view of the chest acquired. RADIATION DOSE: NA LIMITATIONS: None. FINDINGS: LUNGS AND PLEURA: Minimal parenchymal opacity on the right which is a new finding. Left l riccardo cavitary mass stable. No pneumothorax. MEDIASTINUM AND HILAR STRUCTURES: No masses. Contour normal. HEART AND VASCULAR STRUCTURES: Heart normal in size. Normal vasculature. BONES: No acute findings. HARDWARE: None in the chest. OTHER: No other significant finding. IMPRESSION: Minimal acute parenchymal chains at the right base. Stable chronic changes in the left lung. TECHNICAL DOCUMENTATION: JOB ID: [id number] [employer]- All Rights Reserved Reading location - IP/workstation name: [email or web address]
[2017-07-26 10:15] LABS: PLATELET COUNT 81 10^3/uL (150-450); WHITE BLOOD COUNT 0.4 10^3/uL (4.0-10.5)
--- NOTE | 2017-07-26 10:25 | RADIOLOGY REPORT (SQ) ---
EXAM DESCRIPTION: CT FACIAL AREA WITHOUT COMPLETED DATE/TIME: 07/26/2017 10:13 am REASON FOR STUDY: Head injury/facial injury due to fall COMPARISON: None. TECHNIQUE: Noncontrasted images through the facial bones and orbits windowed for bone and soft tissu e. Additional coronal and sagittal reconstructed images reviewed. All images stored on PACS. All CT scanners at this facility use dose modulation, iterative reconstruction, and/or weight based d osing when appropriate to reduce radiation dose to as low as reasonably achievable (ALARA). [facility]: Dose Right [facility]: CareDose [facility]: Dose Right [facility]: Teradose 4D [facility]: [employer] RADIATION DOSE: CT Rad equipment meets quality standard of care and radiation dose reduction techniq ues were employed. CTDIvol: 30.4 mGy. DLP: 617 mGy-cm. mGy. LIMITATIONS: None. FINDINGS: FACIAL BONES: No fracture or bone lesion. ORBITS: Intact. No fracture. Symmetric intact globes and retroorbital soft tissues. PARANASAL SINUSES: Mucosal thickening right maxillary, bilateral ethmoid sinuses and nasofrontal rece sses bilaterally. Fluid in the right maxillary sinus. Rightward deviation of the nasal septum. SOFT TISSUES: No mass or edema. INFERIOR BRAIN: See separate report of the same date. OTHER: No other significant finding. IMPRESSION: NO ACUTE FINDINGS. TECHNICAL DOCUMENTATION: JOB ID: [id number] Quality ID # [id number]: Final reports with documentation of one or more dose reduction techniques (e.g., Au tomated exposure control, adjustment of the mA and/or kV according to patient size, use of iterative reconstruction technique) 2010 [employer]- All Rights Reserved Reading location - IP/workstation name: [email or web address]
[2017-07-26 10:26] LABS: LYMPHOCYTES % (AUTO) 57.4 % (13-45); MONOCYTES % (AUTO) 26.5 % (3-13); SEGMENTED NEUTROPHILS % (AUTO) 16.1 % (42-78); TOTAL CELLS COUNTED % (AUTO) 100 %
[2017-07-26 10:27] LABS: ABSOLUTE LYMPHOCYTES (AUTO) 0.2 10^3/uL (0.5-4.7); ABSOLUTE MONOCYTES (AUTO) 0.1 10^3/uL (0.1-1.4); ABSOLUTE NEUT (AUTO) 0.1 10^3/uL (1.7-8.2)
--- NOTE | 2017-07-26 10:27 | RADIOLOGY REPORT (SQ) ---
EXAM DESCRIPTION: CT HEAD WITHOUT COMPLETED DATE/TIME: 07/26/2017 10:13 am REASON FOR STUDY: Head injury/facial injury due to fall COMPARISON: 04/23/2017 TECHNIQUE: Axial images acquired through the brain without intravenous contrast. Images reviewed wi th bone, brain and subdural windows. Additional sagittal and coronal reconstructions were generated. Images stored on PACS. All CT scanners at this facility use dose modulation, iterative reconstruction, and/or weight based d osing when appropriate to reduce radiation dose to as low as reasonably achievable (ALARA). [facility]: Dose Right [facility]: CareDose [facility]: Dose Right [facility]: Teradose 4D [facility]: [employer] RADIATION DOSE: CT Rad equipment meets quality standard of care and radiation dose reduction techniq ues were employed. CTDIvol: 53.2 mGy. DLP: 1017 mGy-cm.mGy. LIMITATIONS: None. FINDINGS: VENTRICLES: Prominent. CEREBRUM: No masses. No hemorrhage. No midline shift. 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 Areas of lo w density in the white matter most likely due to chronic micro-vascular ischemic change. No evidence for acute infarction. CEREBELLUM: No masses. No hemorrhage. Old right cerebellar infarct. No evidence for acute infarcti on. EXTRAAXIAL SPACES: Age-related involutional change. No fluid collections. No masses. ORBITS AND GLOBE: No intra- or extraconal masses. Normal contour of globe without masses. CALVARIUM: No fracture. PARANASAL SINUSES: No fluid or mucosal thickening. SOFT TISSUES: No mass or hematoma. OTHER: No other significant finding. IMPRESSION: No acute abnormality in the brain. EVIDENCE OF ACUTE STROKE: NO. TECHNICAL DOCUMENTATION: JOB ID: [id number] Quality ID # [id number]: Final reports with documentation of one or more dose reduction techniques (e.g., Au tomated exposure control, adjustment of the mA and/or kV according to patient size, use of iterative reconstruction technique) 2010 [employer]- All Rights Reserved Reading location - IP/workstation name: [email or web address]
[2017-07-26 10:30] LABS: ANISOCYTOSIS 2+; PLATELET COMMENT DECREASED
[2017-07-26 10:32] LABS: INTERNATIONAL RATION (INR) 1.19; PROTHROMBIN TIME 15.9 SEC (11.4-15.4)
[2017-07-26 10:50] LABS: ARTERIAL BLOOD BASE EXCESS -3.4 mmol/L; ARTERIAL BLOOD H2CO3 0.76 mmol/L (1.05-1.35); ARTERIAL BLOOD HCO3 18.9 mmol/L (20-26); ARTERIAL BLOOD O2 SATURATION 98.2 % (94-98); ARTERIAL BLOOD PCO2 25.3 mmHg (35-45); ARTERIAL BLOOD PH 7.49 (7.35-7.45); ARTERIAL BLOOD PO2 102.3 mmHg (80-100); ARTERIAL BLOOD TOTAL CO2 19.7 mmol/L (23-27)
[2017-07-26 10:51] LABS: ARTERIAL BLOOD FIO2 100%
[2017-07-26 12:33] LABS: APPEARANCE,URINE SLIGHTLY-CLOUDY; BILIRUBIN,URINE NEGATIVE (NEGATIVE); COLOR,URINE YELLOW; GLUCOSE, URINE NEGATIVE (NEGATIVE); KETONES,URINE TRACE mg/dL (NEGATIVE); LEUKOCYTE ESTERASE,URINE NEGATIVE (NEGATIVE); NITRITE,URINE NEGATIVE (NEGATIVE); PROTEIN,URINE 30 mg/dL (NEGATIVE); URINE SPECIFIC GRAVITY 1.018
--- NOTE | 2017-07-26 13:46 | RADIOLOGY REPORT (SQ) ---
EXAM DESCRIPTION: CTA CHEST COMPLETED DATE/TIME: 07/26/2017 1:27 pm REASON FOR STUDY: SOB, Difficulty breathing; Rule out PE COMPARISON: 07/13/2017 TECHNIQUE: CT scan of the chest performed using helical scanning technique with dynamic intravenous contrast injection. Images reviewed with lung, soft tissue and bone windows. Reconstructed coronal and sagittal MPR images reviewed. Additional 3 dimensional post-processing performed to develop Maximal Intensity Projection images (OR P). All images stored on PACS. All CT scanners at this facility use dose modulation, iterative reconstruction, and/or weight based d osing when appropriate to reduce radiation dose to as low as reasonably achievable (ALARA). [facility]: Dose Right [facility]: CareDose [facility]: Dose Right [facility]: Teradose 4D [facility]: [employer] CONTRAST TYPE AND DOSE: contrast/concentration: Isovue 370.00 mg/ml; Total Contrast Delivered: 68.0 ml; Total Saline Delivered: 62.2 ml Contrast bolus optimized for the pulmonary arteries. Not diagnostic for the aorta. RENAL FUNCTION: BUN 18 creatinine 1.1 RADIATION DOSE: CT Rad equipment meets quality standard of care and radiation dose reduction techniq ues were employed. CTDIvol: 13.2 - 14.3 mGy. DLP: 564 mGy-cm. . LIMITATIONS: None. FINDINGS: LUNGS AND PLEURA: Stable cavitary pleural-based mass left upper lobe approximately 4.2 x 2 .3 cm. Segmental airspace disease in the medial segment of the middle lobe. This is more conspicuou s than on the prior. 1 cm nodule in the middle lobe image 83. Patchy subsegmental airspace disease in the left lower lobe. No effusions. AORTA AND GREAT VESSELS: No aneurysm. Contrast bolus not optimized for the aorta. HEART: No pericardial effusion. PULMONARY ARTERIES: No emboli visualized in the main pulmonary arteries or the segmental branches. HILAR AND MEDIASTINAL STRUCTURES: No identified masses or abnormal nodes. HARDWARE: None in the chest. UPPER ABDOMEN: Calcifications pancreatic head. THYROID AND OTHER SOFT TISSUES: No masses. No adenopathy. BONES: No acute or significant finding. 3D MIPS: Confirm above findings. OTHER: No other significant finding. IMPRESSION: 1. No PE. 2. Increasing airspace disease the middle lobe and left lower lobe could represent pneumonia. Clinic al correlation is needed. 3. Stable cavitary mass left upper lobe. New 1 cm nodule in the middle lobe. COMMENT: Quality ID # [id number]: Final reports with documentation of one or more dose reduction techniques (e.g., Automated exposure control, adjustment of the mA and/or kV according to patient size, use of iterative reconstruction technique) TECHNICAL DOCUMENTATION: JOB ID: [id number] [employer]- All Rights Reserved Reading location - IP/workstation name: [email or web address]
--- NOTE | 2017-07-26 14:34 | EKG REPORT ---
SEVERITY:- ABNORMAL ECG - SINUS TACHYCARDIA BORDERLINE INFERIOR Q WAVES NONSPECIFIC ANTEROLATERAL ST-T CHANGES : Confirmed by: Oni Muñoz MD 26-Jul-2017 14:34:07
[2017-07-26] MEDS ORDERED: VANCOMYCIN HCL 0 MG in DEXTROSE 5%-WATER 250 ML IV NR (17:30)
[2017-07-26] MEDS ORDERED: ACETAMINOPHEN 325 MG TABLET PO PRN (17:58)
[2017-07-26] MEDS ORDERED: ONDANSETRON HCL INJ/PF 4 MG/2 ML SDV IV PRN (17:58)
[2017-07-26] MEDS ORDERED: ONDANSETRON 4 MG TAB.RAPDIS PO PRN (17:58)
[2017-07-26] MEDS ORDERED: ALBUTEROL SULFATE 0.083% NEB 2.5 MG/3 ML AMPUL NEB PRN (17:58)
[2017-07-26] MEDS ORDERED: LACTOBACILLUS ACIDOPHILUS 250 MG TAB PO SCH (18:00)
--- NOTE | 2017-07-26 18:27 | PDOC H&P ---
History of Present Illness Admission Date/PCP: 07/26/17 16:23 Dr. 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 His first cycle of [place] based chemotherapy started April 20. He was admitted a few days later with weakness neutropenia and a right sided infiltrate and was to have sepsis and was admitted to the intensive care unit. Past medical history: Asthma as a child Coronary artery disease Right hip and bilateral hands arthritis His last dose of chemotherapy was last week. patient reported weakness, dizziness and chills and a fall at home. CT of the facial bones and the head was unremarkable. No fractures seen. The patient was noted to have some epistaxis in the ER. He was also febrile and hypoxic, so a CAT scan of the chest abdomen and pelvis with contrast was done in the emergency room. It did not show pulmonary embolism but did show a new right-sided lower lobe infiltrate. Patient also has neutropenia. He reports being hungry. He denies any cough abdominal pain shortness of breath or chest pain. When I asked him the year he says he does not care what year it is. He was admitted a few days later with weakness neutropenia and a right-sided infiltrate and was found to have sepsis and was admitted to the intensive care unit. Past medical history: Asthma as a child Coronary artery disease Right hip and bilateral hands arthritis CT of the facial bones in the head was unremarkable. No fractures seen. The patient was noted to have some epistaxis in the ER. He is unable to he says his 's name is Geena Santana and that she is his emergency contact he does not remember her phone number. I did call the number listed in the record but got no response. He is awake and alert but not entirely coherent to me and informed response regarding CODE STATUS. Since I am unable to contact his I will go ahead and make him full code for now until I get further information. Vancomycin and cefepime have been ordered. Past Medical History Cardiac Medical History: Reports: Myocardial Infarction, Hypertension Denies: Coronary Artery Disease Pulmonary Medical History: Denies: Asthma, Bronchitis, Chronic Obstructive Pulmonary Disease (COPD), Pneumonia Musculoskeltal Medical History: Reports: Arthritis Hematology: Denies: Anemia Social History Smoking Status: Former Smoker Frequency of Alcohol Use: None Hx Recreational Drug Use: No Drugs: None Hx Prescription Drug Abuse: No Family History Family History: Reviewed & Not Pertinent Parental Family History Reviewed: Yes Children Family History Reviewed: Yes Sibling(s) Family History Reviewed.: Yes Medication/Allergy Allergies/Adverse Reactions: No Known Allergies Allergy (Verified 07/26/17 08:54) Physical Exam Vital Signs: Temp Pulse Resp BP Pulse Ox 99.9 F 125 H 19 105/73 94 07/26/17 08:37 07/26/17 08:37 07/26/17 13:01 07/26/17 13:00 07/26/17 13:01 General appearance: PRESENT: no acute distress Eye exam: ABSENT: periorbital swelling Ear exam: PRESENT: normal external ear exam Mouth exam: PRESENT: moist Neck exam: ABSENT: tracheal deviation Respiratory exam: PRESENT: clear to auscultation laura, symmetrical, unlabored. ABSENT: accessory muscle use Cardiovascular exam: PRESENT: RRR GI/Abdominal exam: PRESENT: normal bowel sounds, soft. ABSENT: tenderness Rectal exam: PRESENT: deferred Results Impressions: Chest X-Ray 07/26/17 09:24 IMPRESSION: Minimal acute parenchymal chains at the right base. Stable chronic changes in the left lung. Facial Bones CT 07/26/17 09:28 IMPRESSION: NO ACUTE FINDINGS. Head CT 07/26/17 09:28 IMPRESSION: No acute abnormality in the brain. EVIDENCE OF ACUTE STROKE: NO. Chest/Abdomen CTA 07/26/17 11:53 IMPRESSION: 1. No PE. 2. Increasing airspace disease the middle lobe and left lower lobe could represent pneumonia. Clinical correlation is needed. 3. Stable cavitary mass left upper lobe. New 1 cm nodule in the middle lobe. Assessment & Plan - Diagnosis (1) Left lower lobe pneumonia Qualifiers: Pneumonia type: due to unspecified organism Qualified Code(s): J18.1 - Lobar pneumonia, unspecified organism Is this a current diagnosis for this admission?: Yes Plan: Vancomycin and Cefepime (2) Epistaxis Is this a current diagnosis for this admission?: Yes Plan: self limited. Continue to monitor. Avoid anticoagulants. Hold Aaspirin. No fractures on CT scan (3) Lung cancer Qualifiers: Laterality: right Lung location: upper lobe of lung Qualified Code(s): C34.11 - Malignant neoplasm of upper lobe, right bronchus or lung Is this a current diagnosis for this admission?: Yes Plan: Consult her Oncologist (4) Neutropenia Qualifiers: Neutropenia type: secondary to cancer chemotherapy Qualified Code(s): D70.1 - Agranulocytosis secondary to cancer chemotherapy; T45.1X5A - Adverse effect of antineoplastic and immunosuppressive drugs, initial encounter; T45.1X5A - Adverse effect of antineoplastic and immunosuppressive drugs, initial encounter Is this a current diagnosis for this admission?: Yes Plan: Neutropenic precautions. CBC daily. Antibiotics. (5) Hypertension Qualifiers: Hypertension type: essential hypertension Qualified Code(s): I10 - Essential (primary) hypertension Is this a current diagnosis for this admission?: Yes Plan: Continue Norvasc - Time Time Spent: Greater than 70 Minutes
[2017-07-26] MEDS ORDERED: LANSOPRAZOLE 30 MG TAB.RAP.DR PO ONE (19:00)
[2017-07-26] MEDS: VANCOMYCIN HCL 750 MG in DEXTROSE 5%-WATER 250 ML IV SCH (20:58)
[2017-07-26] MEDS: LEVETIRACETAM 500 MG TABLET PO SCH (20:59)
[2017-07-26] MEDS ORDERED: INFLUENZA ADLT QUAD (36MOS+) 2017-18 VAC 0.5 ML SYR IM PRN (22:39)
[2017-07-26] MEDS: SODIUM CHLORIDE NASAL SPRAY 44 ML NASL SCH (23:25)
[2017-07-26] MEDS: TEMAZEPAM 15 MG CAPSULE PO SCH (23:25)
[2017-07-27] MEDS: CEFEPIME 2 GM/D5W RTU 2 GM/50 ML RTUPB IV SCH ×2 (00:22→05:33)
[2017-07-27 05:19] LABS: INTERNATIONAL RATION (INR) 1.19; PROTHROMBIN TIME 15.9 SEC (11.4-15.4)
[2017-07-27 05:30] LABS: ABSOLUTE LYMPHOCYTES (AUTO) 0.2 10^3/uL (0.5-4.7); ABSOLUTE MONOCYTES (AUTO) 0.1 10^3/uL (0.1-1.4); BASOPHILS % (AUTO) 1.4 % (0-2); EOSINOPHILS % (AUTO) 0.3 % (0-6); HEMATOCRIT 22.9 % (37.9-51.0); LYMPHOCYTES % (AUTO) 58.3 % (13-45); MEAN CORPUSCULAR HEMOGLOBIN 38.3 pg (27.0-33.4); MEAN CORPUSCULAR HGB CONC 35.1 g/dL (32.0-36.0); MEAN CORPUSCULAR VOLUME 109 fl (80-97); MONOCYTES % (AUTO) 25.6 % (3-13); RED BLOOD COUNT 2.09 10^6/uL (4.35-5.55); RED CELL DISTRIBUTION WIDTH 17.7 % (11.5-14.0); SEGMENTED NEUTROPHILS % (AUTO) 14.4 % (42-78); TOTAL CELLS COUNTED % (AUTO) 100 %
[2017-07-27 05:50] LABS: ANION GAP 11 (5-19); BLOOD UREA NITROGEN 17 mg/dL (7-20); CALCIUM 8.4 mg/dL (8.4-10.2); CARBON DIOXIDE 21 mmol/L (22-30); CHLORIDE 100 mmol/L (98-107); GLUCOSE 87 mg/dL (75-110); PHOSPHORUS 2.9 mg/dL (2.5-4.5); POTASSIUM 4.1 mmol/L (3.6-5.0); SODIUM 132.3 mmol/L (137-145)
[2017-07-27 05:55] LABS: PLATELET COUNT 62 10^3/uL (150-450)
[2017-07-27 05:57] LABS: ANISOCYTOSIS 1+; PLATELET COMMENT DECREASED
[2017-07-27 05:59] LABS: WHITE BLOOD COUNT 0.3 10^3/uL (4.0-10.5)
[2017-07-27] MEDS ORDERED: LANSOPRAZOLE 30 MG TAB.RAP.DR PO SCH (06:00)
[2017-07-27] MEDS ORDERED: LORAZEPAM INJ 2 MG/1 ML VIAL IV ONE (06:14)
--- NOTE | 2017-07-27 07:53 | PDOC CONSULTATION ---
Consultation Consult Date: 07/27/17 Consult reason:: Hematology Oncology consultation was requested for patient with metastatic lung cancer. 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 His first cycle of [place] based chemotherapy started April 20. He was admitted a few days later with weakness neutropenia and a right sided infiltrate and was to have sepsis and was admitted to the intensive care unit. Past medical history: Asthma as a child Coronary artery disease Right hip and bilateral hands arthritis 2 weeks ago, he was changed to concurrent chemo and radiation and received a much lower dose of weekly chemotherapy earlier this week. According to the patient's , he patient has had progressive weakness over the last 2 days and is no longer able to stand. He has been falling and has not been eating for the past 4 days. He was also found to have a nose bleed just prior to admission. An attempted port placement earlier this week was aborted due to acute hypoxia. At baseline, patient has expressive aphasia due to prior CVA. However, currently, patient is in respiratory distress and is unable to speak due to this. Past Medical History Cardiac Medical History: Reports: Myocardial Infarction, Hypertension Denies: Coronary Artery Disease Pulmonary Medical History: Denies: Asthma, Bronchitis, Chronic Obstructive Pulmonary Disease (COPD), Pneumonia Neurological Medical History: Reports: Ischemic CVA Denies: Seizures Malignancy Medical History: Reports: Brain Cancer, Lung Cancer Musculoskeltal Medical History: Reports: Arthritis Hematology: Reports: Neutropenia Denies: Anemia Social History Information Source: Relative Lives with: Spouse/Significant other Smoking Status: Former Smoker Frequency of Alcohol Use: None Hx Recreational Drug Use: No Drugs: None Hx Prescription Drug Abuse: No - Advance Directive Resuscitation Status: Do Not Resuscitate Family History Family History: Reviewed & Not Pertinent Parental Family History Reviewed: No Children Family History Reviewed: No Sibling(s) Family History Reviewed.: No Medication/Allergy Home Medications: Levetiracetam [Keppra 500 mg Tablet] 500 mg PO Q12 07/26/17 Temazepam [Restoril 15 mg Capsule] 15 mg PO QHS 07/26/17 Allergies/Adverse Reactions: No Known Allergies Allergy (Verified 07/26/17 08:54) Review of Systems ROS unobtainable: Other - All info from . Patient's clinical status is such that ROS cannot be obtained. Physical Exam Vital Signs: Temp Pulse Resp BP Pulse Ox 99.4 F 122 H 46 H 125/59 L 95 07/27/17 04:37 07/27/17 06:40 07/27/17 06:40 07/27/17 04:37 07/27/17 04:37 Intake & Output 07/26/17 07/27/17 07/28/17 06:59 06:59 06:59 Intake Total 750 Output Total 50 Balance 700 Weight 73.2 kg General appearance: PRESENT: severe distress Exam: 66 year old male. Head exam: PRESENT: atraumatic Mouth exam: PRESENT: dry mucosa Respiratory exam: PRESENT: accessory muscle use, wheezes Cardiovascular exam: PRESENT: RRR, tachycardia Vascular exam: PRESENT: other - Cyanosis Extremities exam: PRESENT: clubbing Neurological exam: PRESENT: altered Skin exam: PRESENT: mottled Results Laboratory Results: 07/27/17 04:40 07/27/17 04:40 07/27/17 07/27/17 07/27/17 04:40 04:40 04:40 WBC 0.3 L* RBC 2.09 L Hgb 8.0 L Hct 22.9 L MCV 109 H MCH 38.3 H MCHC 35.1 RDW 17.7 H Plt Count 62 L Seg Neutrophils % 14.4 L Lymphocytes % 58.3 H Monocytes % 25.6 H Eosinophils % 0.3 Basophils % 1.4 Absolute Neutrophils 0.0 L Absolute Lymphocytes 0.2 L Absolute Monocytes 0.1 Absolute Eosinophils 0.0 Absolute Basophils 0.0 Sodium 132.3 L Potassium 4.1 Chloride 100 Carbon Dioxide 21 L Anion Gap 11 BUN 17 Creatinine 0.84 Est GFR ( Amer) > 60 Est GFR (Non-Af Amer) > 60 Glucose 87 Calcium 8.4 Phosphorus 2.9 Magnesium 2.3 TSH 0.44 L Impressions: Chest X-Ray 07/26/17 09:24 IMPRESSION: Minimal acute parenchymal chains at the right base. Stable chronic changes in the left lung. Facial Bones CT 07/26/17 09:28 IMPRESSION: NO ACUTE FINDINGS. Head CT 07/26/17 09:28 IMPRESSION: No acute abnormality in the brain. EVIDENCE OF ACUTE STROKE: NO. Chest/Abdomen CTA 07/26/17 11:53 IMPRESSION: 1. No PE. 2. Increasing airspace disease the middle lobe and left lower lobe could represent pneumonia. Clinical correlation is needed. 3. Stable cavitary mass left upper lobe. New 1 cm nodule in the middle lobe. Assessment & Plan - Diagnosis (1) Lung cancer Qualifiers: Laterality: right Lung location: upper lobe of lung Qualified Code(s): C34.11 - Malignant neoplasm of upper lobe, right bronchus or lung Is this a current diagnosis for this admission?: Yes Plan: Currently receiving concurrent chemo and radiation. All treatments will remain on hold. (2) Pancytopenia due to antineoplastic chemotherapy Is this a current diagnosis for this admission?: Yes Plan: Support with Neutropenic precautions. Transfuse pRBCs for HBG<8.0. Transfuse PLT for bleeding or PLT <20. (3) Left lower lobe pneumonia Qualifiers: Pneumonia type: due to unspecified organism Qualified Code(s): J18.1 - Lobar pneumonia, unspecified organism Is this a current diagnosis for this admission?: Yes Plan: Agree with current antibiotics. - Plan Summary Plan Summary: I spoke with patient's this morning. I know that patient has expressed his wishes in the past for DNR status. She confirmed this. I will change this in his orders. I have explained that we will continue to do everything possible for him short of intubation. I am also concerned that his mental status may be due to progression of his brain mets. He had a non-contrasted CT which did not show the current mass. MRI with contrast would be better to evaluate this. However, his respiratory status is currently not good enough for this testing. I will start Dexamethasone 8 mg IV q 12 hours. This may also help his breathing. I will start MIVF and see if he responds to any of these treatments over the next 24 hours. I have prepared the that he may not survive this admission.
[2017-07-27] MEDS ORDERED: ONDANSETRON 4 MG TAB.RAPDIS PO PRN (08:00)
[2017-07-27] MEDS ORDERED: ONDANSETRON HCL INJ/PF 4 MG/2 ML SDV IV PRN (08:00)
[2017-07-27] MEDS: LEVETIRACETAM 500 MG TABLET PO SCH ×2 (08:06→20:37)
[2017-07-27] MEDS: VANCOMYCIN HCL 750 MG in DEXTROSE 5%-WATER 250 ML IV SCH (08:06)
[2017-07-27] MEDS ORDERED: NORMAL SALINE 1000 ML 1,000 ML IV PRN (08:07)
[2017-07-27 08:16] VITALS: BP 117/53
[2017-07-27 08:17] LABS: ARTERIAL BLOOD BASE EXCESS -4.3 mmol/L; ARTERIAL BLOOD HCO3 18.6 mmol/L (20-26); ARTERIAL BLOOD O2 SATURATION 95.9 % (94-98); ARTERIAL BLOOD PCO2 26.5 mmHg (35-45); ARTERIAL BLOOD PH 7.46 (7.35-7.45); ARTERIAL BLOOD PO2 73.8 mmHg (80-100); ARTERIAL BLOOD TOTAL CO2 19.4 mmol/L (23-27)
[2017-07-27 08:19] LABS: ARTERIAL BLOOD FIO2 100%
--- NOTE | 2017-07-27 09:39 | PDOC PROGRESS REPORT ---
Subjective Progress Note for:: 07/27/17 Subjective:: The patient has been tachypneic and developed respiratory alkalosis. His case was reviewed this am with his oncologist Dr. Massey and prognosis is poor with evidence of worsening. His Geena is at the bedside and is requesting comfort care measures only , keeping in mind his wishes. Reason For Visit: NEUTROPENIC FEVER,PNEUMONIA Physical Exam Vital Signs: Temp Pulse Resp BP Pulse Ox 98.2 F 119 H 28 H 117/53 L 99 07/27/17 08:08 07/27/17 08:08 07/27/17 08:08 07/27/17 08:08 07/27/17 08:08 Intake & Output 07/26/17 07/27/17 07/28/17 06:59 06:59 06:59 Intake Total 750 Output Total 50 Balance 700 Weight 73.2 kg General appearance: PRESENT: mild distress Mouth exam: PRESENT: neck supple Respiratory exam: PRESENT: accessory muscle use, rhonchi Cardiovascular exam: PRESENT: RRR GI/Abdominal exam: PRESENT: soft. ABSENT: tenderness Extremities exam: ABSENT: calf tenderness, pedal edema Results Laboratory Results: 07/27/17 04:40 07/27/17 04:40 07/27/17 07/27/17 07/27/17 04:40 04:40 04:40 WBC 0.3 L* RBC 2.09 L Hgb 8.0 L Hct 22.9 L MCV 109 H MCH 38.3 H MCHC 35.1 RDW 17.7 H Plt Count 62 L Seg Neutrophils % 14.4 L Lymphocytes % 58.3 H Monocytes % 25.6 H Eosinophils % 0.3 Basophils % 1.4 Absolute Neutrophils 0.0 L Absolute Lymphocytes 0.2 L Absolute Monocytes 0.1 Absolute Eosinophils 0.0 Absolute Basophils 0.0 Carbonic Acid HCO3/H2CO3 Ratio ABG pH ABG pCO2 ABG pO2 ABG HCO3 ABG O2 Saturation ABG Base Excess FiO2 Sodium 132.3 L Potassium 4.1 Chloride 100 Carbon Dioxide 21 L Anion Gap 11 BUN 17 Creatinine 0.84 Est GFR ( Amer) > 60 Est GFR (Non-Af Amer) > 60 Glucose 87 Calcium 8.4 Phosphorus 2.9 Magnesium 2.3 TSH 0.44 L 07/27/17 08:00 WBC RBC Hgb Hct MCV MCH MCHC RDW Plt Count Seg Neutrophils % Lymphocytes % Monocytes % Eosinophils % Basophils % Absolute Neutrophils Absolute Lymphocytes Absolute Monocytes Absolute Eosinophils Absolute Basophils Carbonic Acid 0.80 L HCO3/H2CO3 Ratio 23:1 ABG pH 7.46 H ABG pCO2 26.5 L ABG pO2 73.8 L ABG HCO3 18.6 L ABG O2 Saturation 95.9 ABG Base Excess -4.3 FiO2 100% Sodium Potassium Chloride Carbon Dioxide Anion Gap BUN Creatinine Est GFR ( Amer) Est GFR (Non-Af Amer) Glucose Calcium Phosphorus Magnesium TSH Impressions: Chest X-Ray 07/26/17 09:24 IMPRESSION: Minimal acute parenchymal chains at the right base. Stable chronic changes in the left lung. Facial Bones CT 07/26/17 09:28 IMPRESSION: NO ACUTE FINDINGS. Head CT 07/26/17 09:28 IMPRESSION: No acute abnormality in the brain. EVIDENCE OF ACUTE STROKE: NO. Chest/Abdomen CTA 07/26/17 11:53 IMPRESSION: 1. No PE. 2. Increasing airspace disease the middle lobe and left lower lobe could represent pneumonia. Clinical correlation is needed. 3. Stable cavitary mass left upper lobe. New 1 cm nodule in the middle lobe. Assessment & Plan - Diagnosis (1) Left lower lobe pneumonia Qualifiers: Pneumonia type: due to unspecified organism Qualified Code(s): J18.1 - Lobar pneumonia, unspecified organism Is this a current diagnosis for this admission?: Yes (2) Epistaxis Is this a current diagnosis for this admission?: Yes (3) Lung cancer Qualifiers: Laterality: right Lung location: upper lobe of lung Qualified Code(s): C34.11 - Malignant neoplasm of upper lobe, right bronchus or lung Is this a current diagnosis for this admission?: Yes (4) Neutropenia Qualifiers: Neutropenia type: secondary to cancer chemotherapy Qualified Code(s): D70.1 - Agranulocytosis secondary to cancer chemotherapy; T45.1X5A - Adverse effect of antineoplastic and immunosuppressive drugs, initial encounter; T45.1X5A - Adverse effect of antineoplastic and immunosuppressive drugs, initial encounter Is this a current diagnosis for this admission?: Yes (5) Hypertension Qualifiers: Hypertension type: essential hypertension Qualified Code(s): I10 - Essential (primary) hypertension Is this a current diagnosis for this admission?: Yes - Time Time Spent with patient: 35 or more minutes - Plan Summary Plan Summary: Comfort measures only. Ativan as needed for anxiety. Roxanol prn pain or dyspnea.
[2017-07-27] MEDS ORDERED: MORPHINE SULFATE 10 MG/5 ML ORAL SOLUTION UDCUP PO PRN (09:40)
[2017-07-27] MEDS ORDERED: PANTOPRAZOLE SODIUM 40 MG VIAL IV SCH (10:00)
[2017-07-27] MEDS ORDERED: AMLODIPINE BESYLATE 10 MG TABLET PO SCH (10:00)
[2017-07-27] MEDS ORDERED: AMLODIPINE BESYLATE 5 MG TABLET PO SCH (10:00)
[2017-07-27] MEDS ORDERED: DEXAMETHASONE SOD PHOS INJ 10 MG/1 ML VIAL IV SCH (10:00)
[2017-07-27] MEDS: SODIUM CHLORIDE NASAL SPRAY 44 ML NASL SCH ×4 (10:08→21:35)
[2017-07-27] MEDS: MORPHINE SULFATE 10 MG/ML INJ IV PRN ×3 (10:22→20:37)
[2017-07-27] MEDS: LORAZEPAM INJ 2 MG/1 ML VIAL IV PRN ×3 (10:23→20:36)
--- NOTE | 2017-07-27 14:51 | Progress Note ---
Provider Note Provider Note: Advanced care planning. The patient is a 66-year-old gentleman with metastatic lung cancer with metastases to the brain. He had been undergoing chemotherapy as an outpatient last was on of last week. He been getting progressively weaker. He was unable to tolerate a port placement last week due to hypoxia. He presented to the hospital yesterday with fever neutropenia and pneumonia with confusion and reduced responsiveness. He was seen in consultation by his oncologist who feels that he has a new lesion seen in the left lung and also possibly has new metastases to his brain. I had a discussion with his Geena at the bedside and she requests that in keeping with the patient's wishes he be placed on comfort care measures only.
[2017-07-27] MEDS: TEMAZEPAM 15 MG CAPSULE PO SCH (21:35)
[2017-07-28] MEDS: LORAZEPAM INJ 2 MG/1 ML VIAL IV PRN ×5 (00:39→20:59)
[2017-07-28] MEDS: MORPHINE SULFATE 10 MG/ML INJ IV PRN ×3 (00:39→20:59)
[2017-07-28] MEDS ORDERED: LANSOPRAZOLE 30 MG TAB.RAP.DR PO SCH (06:00)
[2017-07-28] MEDS: LEVETIRACETAM 500 MG TABLET PO SCH ×2 (10:34→20:59)
[2017-07-28] MEDS: SODIUM CHLORIDE NASAL SPRAY 44 ML NASL SCH ×4 (10:35→21:12)
--- NOTE | 2017-07-28 16:41 | PDOC PROGRESS REPORT ---
Subjective Progress Note for:: 07/28/17 Subjective:: 66-year-old gentleman with metastatic lung cancer currently on comfort care. No complaints at present. He is awake and alert. He is on a nonrebreather. Not in acute distress. Reason For Visit: NEUTROPENIC FEVER,PNEUMONIA Physical Exam Vital Signs: Temp Pulse Resp BP Pulse Ox 98.2 F 77 28 H 117/53 L 83 L 07/27/17 08:08 07/28/17 13:37 07/28/17 13:37 07/27/17 08:08 07/28/17 13:37 Intake & Output 07/27/17 07/28/17 07/29/17 06:59 06:59 06:59 Intake Total 750 449 Output Total 50 1650 Balance 700 -1201 Weight 73.2 kg Eye exam: PRESENT: PERRLA Ear exam: PRESENT: normal external ear exam Mouth exam: PRESENT: moist Respiratory exam: PRESENT: crackles, rhonchi, symmetrical Cardiovascular exam: PRESENT: RRR GI/Abdominal exam: PRESENT: normal bowel sounds, soft. ABSENT: tenderness Rectal exam: PRESENT: deferred Results Laboratory Results: 07/27/17 04:40 07/27/17 04:40 Impressions: Chest X-Ray 07/26/17 09:24 IMPRESSION: Minimal acute parenchymal chains at the right base. Stable chronic changes in the left lung. Facial Bones CT 07/26/17 09:28 IMPRESSION: NO ACUTE FINDINGS. Head CT 07/26/17 09:28 IMPRESSION: No acute abnormality in the brain. EVIDENCE OF ACUTE STROKE: NO. Chest/Abdomen CTA 07/26/17 11:53 IMPRESSION: 1. No PE. 2. Increasing airspace disease the middle lobe and left lower lobe could represent pneumonia. Clinical correlation is needed. 3. Stable cavitary mass left upper lobe. New 1 cm nodule in the middle lobe. Assessment & Plan - Diagnosis (1) Left lower lobe pneumonia Qualifiers: Pneumonia type: due to unspecified organism Qualified Code(s): J18.1 - Lobar pneumonia, unspecified organism Is this a current diagnosis for this admission?: Yes (2) Epistaxis Is this a current diagnosis for this admission?: Yes (3) Lung cancer Qualifiers: Laterality: right Lung location: upper lobe of lung Qualified Code(s): C34.11 - Malignant neoplasm of upper lobe, right bronchus or lung Is this a current diagnosis for this admission?: Yes (4) Neutropenia Qualifiers: Neutropenia type: secondary to cancer chemotherapy Qualified Code(s): D70.1 - Agranulocytosis secondary to cancer chemotherapy; T45.1X5A - Adverse effect of antineoplastic and immunosuppressive drugs, initial encounter; T45.1X5A - Adverse effect of antineoplastic and immunosuppressive drugs, initial encounter Is this a current diagnosis for this admission?: Yes (5) Hypertension Qualifiers: Hypertension type: essential hypertension Qualified Code(s): I10 - Essential (primary) hypertension Is this a current diagnosis for this admission?: Yes - Time Time Spent with patient: 15-24 minutes - Plan Summary Plan Summary: Continue comfort care measures.
[2017-07-28] MEDS: TEMAZEPAM 15 MG CAPSULE PO SCH (21:11)
[2017-07-29] MEDS: LORAZEPAM INJ 2 MG/1 ML VIAL IV PRN ×5 (02:48→23:32)
[2017-07-29] MEDS: MORPHINE SULFATE 10 MG/ML INJ IV PRN ×6 (02:48→23:32)
[2017-07-29] MEDS: SODIUM CHLORIDE NASAL SPRAY 44 ML NASL SCH ×4 (09:58→21:35)
[2017-07-29] MEDS: LEVETIRACETAM 500 MG TABLET PO SCH (10:02)
[2017-07-29] MEDS: SCOPOLAMINE HYDROBROMIDE 1.5 MG PATCH.TD72 TD SCH (11:23)
--- NOTE | 2017-07-29 12:48 | PDOC PROGRESS REPORT ---
Subjective Progress Note for:: 07/29/17 Subjective:: Patient is unresponsive. is at bedside. Nurses report that he was awake an dable to speak for a time yesterday, but today has remained unresponsive. Reason For Visit: NEUTROPENIC FEVER,PNEUMONIA Physical Exam Vital Signs: Temp Pulse Resp BP Pulse Ox 98.2 F 77 28 H 117/53 L 83 L 07/27/17 08:08 07/28/17 13:37 07/28/17 13:37 07/27/17 08:08 07/28/17 13:37 Intake & Output 07/28/17 07/29/17 07/30/17 06:59 06:59 06:59 Intake Total 449 59 Output Total 1650 460 Balance -1201 -401 Weight 73.2 kg Exam: 66 year old male with fish mouth breathing and loud upper airway noises. Unresponsive. Respiratory exam: PRESENT: other - Upper airway noise bilaterally. Cardiovascular exam: PRESENT: irregular rhythm GI/Abdominal exam: PRESENT: soft. ABSENT: tenderness Neurological exam: ABSENT: alert, awake Psychiatric exam: ABSENT: agitated, anxious Skin exam: PRESENT: cyanosis, mottled Results Laboratory Results: 07/27/17 04:40 07/27/17 04:40 Impressions: Chest X-Ray 07/26/17 09:24 IMPRESSION: Minimal acute parenchymal chains at the right base. Stable chronic changes in the left lung. Facial Bones CT 07/26/17 09:28 IMPRESSION: NO ACUTE FINDINGS. Head CT 07/26/17 09:28 IMPRESSION: No acute abnormality in the brain. EVIDENCE OF ACUTE STROKE: NO. Chest/Abdomen CTA 07/26/17 11:53 IMPRESSION: 1. No PE. 2. Increasing airspace disease the middle lobe and left lower lobe could represent pneumonia. Clinical correlation is needed. 3. Stable cavitary mass left upper lobe. New 1 cm nodule in the middle lobe. Assessment & Plan - Diagnosis (1) Lung cancer Qualifiers: Laterality: right Lung location: upper lobe of lung Qualified Code(s): C34.11 - Malignant neoplasm of upper lobe, right bronchus or lung Is this a current diagnosis for this admission?: Yes (2) Pancytopenia due to antineoplastic chemotherapy Is this a current diagnosis for this admission?: Yes (3) Left lower lobe pneumonia Qualifiers: Pneumonia type: due to unspecified organism Qualified Code(s): J18.1 - Lobar pneumonia, unspecified organism Is this a current diagnosis for this admission?: Yes - Plan Summary Plan Summary: Continue comfort measures only. states there are no other family members. She understands that his time is short, but unpredictable. All questions were answered to the best of my ability.
--- NOTE | 2017-07-29 13:07 | PDOC PROGRESS REPORT ---
Subjective Progress Note for:: 07/29/17 Subjective:: The patient is unresponsive. Review of systems could not be obtained. According to the patient's who is at the bedside he has notBeen able to take not been able to take any of his oral medications and he has not been responsive since sometime last night. He has developed apneic breathing. I spent quite some time discussing the plan of care. He seems to have transitioned into the active dying process and he will likely remain in the hospital until he passes. She states this would be much better for her says that she would not have to travel. Reason For Visit: NEUTROPENIC FEVER,PNEUMONIA Physical Exam Vital Signs: Temp Pulse Resp BP Pulse Ox 98.2 F 77 28 H 117/53 L 83 L 07/27/17 08:08 07/28/17 13:37 07/28/17 13:37 07/27/17 08:08 07/28/17 13:37 Intake & Output 07/28/17 07/29/17 07/30/17 06:59 06:59 06:59 Intake Total 449 59 Output Total 1650 460 Balance -1201 -401 Weight 73.2 kg General appearance: PRESENT: other - The patient is unresponsive. He has on a nonrebreather and has developed apneic breathing Head exam: PRESENT: atraumatic, normocephalic Mouth exam: PRESENT: dry mucosa Respiratory exam: PRESENT: other - Apneic breathing with coarse breath sounds throughout all lung [place] anteriorly Cardiovascular exam: PRESENT: irregular rhythm GI/Abdominal exam: PRESENT: normal bowel sounds, soft. ABSENT: distended, guarding, mass, organolmegaly, rebound, tenderness Rectal exam: PRESENT: deferred Gentrourinary exam: PRESENT: other - He is not making much urine Neurological exam: PRESENT: other - He remains unresponsive. ABSENT: alert, altered, awake, oriented to person, oriented to place Skin exam: PRESENT: dry, intact, warm. ABSENT: cyanosis, rash Results Laboratory Results: 07/27/17 04:40 07/27/17 04:40 Impressions: Chest X-Ray 07/26/17 09:24 IMPRESSION: Minimal acute parenchymal chains at the right base. Stable chronic changes in the left lung. Facial Bones CT 07/26/17 09:28 IMPRESSION: NO ACUTE FINDINGS. Head CT 07/26/17 09:28 IMPRESSION: No acute abnormality in the brain. EVIDENCE OF ACUTE STROKE: NO. Chest/Abdomen CTA 07/26/17 11:53 IMPRESSION: 1. No PE. 2. Increasing airspace disease the middle lobe and left lower lobe could represent pneumonia. Clinical correlation is needed. 3. Stable cavitary mass left upper lobe. New 1 cm nodule in the middle lobe. Assessment & Plan - Diagnosis (1) Acute respiratory failure with hypoxia Is this a current diagnosis for this admission?: Yes Plan: The patient remains on a 15 L nonrebreather. (2) Lung cancer Qualifiers: Laterality: right Lung location: upper lobe of lung Qualified Code(s): C34.11 - Malignant neoplasm of upper lobe, right bronchus or lung Is this a current diagnosis for this admission?: Yes Plan: With probable brain metastases (3) Pneumonia Is this a current diagnosis for this admission?: Yes Plan: Concerns for gram negatives and MRSA. No longer receiving treatment (4) Pancytopenia Is this a current diagnosis for this admission?: Yes Plan: Due to his underlying malignancy and chemotherapy. (5) Epistaxis Is this a current diagnosis for this admission?: Yes (6) Hyponatremia Is this a current diagnosis for this admission?: Yes Plan: No longer checking labs (7) Coronary artery disease Is this a current diagnosis for this admission?: Yes Plan: Unable to take his p.o. medications (8) Hypertension Qualifiers: Hypertension type: essential hypertension Qualified Code(s): I10 - Essential (primary) hypertension Is this a current diagnosis for this admission?: Yes (9) Do not resuscitate Is this a current diagnosis for this admission?: Yes (10) Palliative care encounter Is this a current diagnosis for this admission?: Yes Plan: The patient remains in comfort measures in the hospital. He has certainly transitioned into the active dying process. He has apneic breathing and he is no longer responsive. All of his medications have been stopped. He has IV morphine available every hour as well as IV Ativan. I have placed a scopolamine patch today. He is receiving IV Keppra twice daily as there are concerns of brain metastases to keep him from having a seizure. The patient will likely remain in the hospital until he passes. - Time Time Spent with patient: 25-34 minutes - Inpatient Certification Based on my medical assessment, after consideration of the patient's comorbidities, presenting symptoms, or acuity I expect that the services needed warrant INPATIENT care.: Yes I certify that my determination is in accordance with my understanding of Medicare's requirements for reasonable and necessary INPATIENT services [42 CFR 412.3e].: Yes Medical Necessity: Other - The patient is actively dying. He has certainly transitioned quite quickly over the past 24 hours. I suspect that the patient will pass in the next 24-48 hours. He will remain here in the hospital until he passes. He is requiring parenteral therapies and he has suspected brain metastases. His symptoms could be quite hard to control and I do not believe his can take care of him at home.
[2017-07-29] MEDS: LEVETIRACETAM 500 MG/NACL-ISO 500 MG/100 ML RTUPB IV SCH (20:04)
[2017-07-30] MEDS: LORAZEPAM INJ 2 MG/1 ML VIAL IV PRN ×3 (03:21→09:17)
[2017-07-30] MEDS: MORPHINE SULFATE 10 MG/ML INJ IV PRN ×7 (03:21→22:46)
[2017-07-30] MEDS: LEVETIRACETAM 500 MG/NACL-ISO 500 MG/100 ML RTUPB IV SCH ×2 (09:17→21:16)
[2017-07-30] MEDS: SODIUM CHLORIDE NASAL SPRAY 44 ML NASL SCH ×4 (09:17→22:07)
--- NOTE | 2017-07-30 15:49 | PDOC PROGRESS REPORT ---
Subjective Progress Note for:: 07/30/17 Subjective:: The patient is an unfortunate 66-year-old male with metastatic lung cancer diagnosed late last year. He has been receiving chemotherapy directed by Dr. Massey. The patient presented to the emergency room after having a fall at home. He was found to be febrile and hypoxic. Also there were concerns for the development of brain metastases. Initially he was aggressively treated but after discussions have been had with the patient's the decision was made to transition him to comfort measures. Currently he is receiving IV Keppra in the event that he would develop any seizures. He is being kept comfortable with IV morphine and IV Ativan. He has a scopolamine patch in place. Today when I saw the patient he is unresponsive. He has developed apneic breathing. I spent quite some time discussing the plan of care with the patient 's at the bedside and all of her questions were answered. Reason For Visit: NEUTROPENIC FEVER,PNEUMONIA Physical Exam Vital Signs: Temp Pulse Resp BP Pulse Ox 98.2 F 77 28 H 117/53 L 83 L 07/27/17 08:08 07/28/17 13:37 07/28/17 13:37 07/27/17 08:08 07/28/17 13:37 Intake & Output 07/29/17 07/30/17 07/31/17 06:59 06:59 06:59 Intake Total 59 150 Output Total 460 535 Balance -401 -385 Weight 73.2 kg General appearance: PRESENT: other - The patient is unresponsive. Head exam: PRESENT: atraumatic, normocephalic Mouth exam: PRESENT: dry mucosa, other - He has developed the O sign Respiratory exam: PRESENT: other - He has apneic breathing. He has some coarse breath sounds anteriorly. Cardiovascular exam: PRESENT: tachycardia - Heart rate is a little irregular at times. ABSENT: diastolic murmur, rubs, systolic murmur GI/Abdominal exam: PRESENT: other - Hypoactive bowel sounds. His abdomen appears to be nontender Rectal exam: PRESENT: deferred Extremities exam: PRESENT: other - His feet are cool and developing some mottling. Upper extremities are still warm. Neurological exam: PRESENT: other - Unresponsive. ABSENT: alert, awake Psychiatric exam: ABSENT: agitated, anxious Skin exam: PRESENT: dry, intact, warm. ABSENT: cyanosis, rash Results Laboratory Results: 07/27/17 04:40 07/27/17 04:40 Impressions: Chest X-Ray 07/26/17 09:24 IMPRESSION: Minimal acute parenchymal chains at the right base. Stable chronic changes in the left lung. Facial Bones CT 07/26/17 09:28 IMPRESSION: NO ACUTE FINDINGS. Head CT 07/26/17 09:28 IMPRESSION: No acute abnormality in the brain. EVIDENCE OF ACUTE STROKE: NO. Chest/Abdomen CTA 07/26/17 11:53 IMPRESSION: 1. No PE. 2. Increasing airspace disease the middle lobe and left lower lobe could represent pneumonia. Clinical correlation is needed. 3. Stable cavitary mass left upper lobe. New 1 cm nodule in the middle lobe. Assessment & Plan - Diagnosis (1) Acute respiratory failure with hypoxia Is this a current diagnosis for this admission?: Yes Plan: The patient was initially on a 15 L nonrebreather. He was transitioned over to a nasal cannula today. (2) Lung cancer Qualifiers: Laterality: right Lung location: upper lobe of lung Qualified Code(s): C34.11 - Malignant neoplasm of upper lobe, right bronchus or lung Is this a current diagnosis for this admission?: Yes Plan: Stage IV metastatic lung cancer with probable brain metastases (3) Pneumonia Is this a current diagnosis for this admission?: Yes Plan: Concerns for gram negatives and MRSA. No longer receiving treatment (4) Pancytopenia Is this a current diagnosis for this admission?: Yes Plan: Due to his underlying malignancy and chemotherapy. (5) Epistaxis Is this a current diagnosis for this admission?: Yes Plan: Secondary to his fall. Resolved (6) Hyponatremia Is this a current diagnosis for this admission?: Yes Plan: No longer checking labs (7) Coronary artery disease Is this a current diagnosis for this admission?: Yes Plan: Unable to take his p.o. medications (8) Hypertension Qualifiers: Hypertension type: essential hypertension Qualified Code(s): I10 - Essential (primary) hypertension Is this a current diagnosis for this admission?: Yes Plan: He can no longer take medications. (9) Do not resuscitate Is this a current diagnosis for this admission?: Yes (10) Palliative care encounter Is this a current diagnosis for this admission?: Yes Plan: The patient remains in comfort measures in the hospital. He has certainly transitioned into the active dying process. He has apneic breathing and he is no longer responsive. All of his medications have been stopped. He has IV morphine available every hour as well as IV Ativan. I have placed a scopolamine patch today. He is receiving IV Keppra twice daily as there are concerns of brain metastases to keep him from having a seizure. The patient will likely remain in the hospital until he passes. - Time Time Spent with patient: 15-24 minutes - Inpatient Certification Medical Necessity: Other - Inpatient hospitalization remains necessary for end- of-life care. Due to concerns for the patient's brain metastases and difficult to control symptoms he needs parenteral therapies in the hospital. He is certainly progressed and I suspect that he will pass in the next 24-48 hours. I have assured the that he can stay in the hospital until he passes.
[2017-07-31] MEDS: MORPHINE SULFATE 10 MG/ML INJ IV PRN ×4 (03:41→19:06)
--- NOTE | 2017-07-31 08:15 | PDOC PROGRESS REPORT ---
Subjective Progress Note for:: 07/31/17 Subjective:: No significant change. His breathing is becoming more shallow. He is now on NC O2. Appears very comfortable. Reason For Visit: NEUTROPENIC FEVER,PNEUMONIA Physical Exam Vital Signs: Temp Pulse Resp BP Pulse Ox 98.2 F 77 28 H 117/53 L 83 L 07/27/17 08:08 07/28/17 13:37 07/28/17 13:37 07/27/17 08:08 07/28/17 13:37 Intake & Output 07/30/17 07/31/17 08/01/17 06:59 06:59 06:59 Intake Total 150 100 Output Total 535 7 Balance -385 93 General appearance: PRESENT: no acute distress Exam: 66 year old male. breathing is shallow with some periods of apnea. Pulse remains strong. abdomen is non-tender. He does not respond to voice or tactile stimuli. Results Laboratory Results: 07/27/17 04:40 07/27/17 04:40 Impressions: Chest X-Ray 07/26/17 09:24 IMPRESSION: Minimal acute parenchymal chains at the right base. Stable chronic changes in the left lung. Facial Bones CT 07/26/17 09:28 IMPRESSION: NO ACUTE FINDINGS. Head CT 07/26/17 09:28 IMPRESSION: No acute abnormality in the brain. EVIDENCE OF ACUTE STROKE: NO. Chest/Abdomen CTA 07/26/17 11:53 IMPRESSION: 1. No PE. 2. Increasing airspace disease the middle lobe and left lower lobe could represent pneumonia. Clinical correlation is needed. 3. Stable cavitary mass left upper lobe. New 1 cm nodule in the middle lobe. Assessment & Plan - Diagnosis (1) Lung cancer Qualifiers: Laterality: right Lung location: upper lobe of lung Qualified Code(s): C34.11 - Malignant neoplasm of upper lobe, right bronchus or lung Is this a current diagnosis for this admission?: Yes (2) Pancytopenia due to antineoplastic chemotherapy Is this a current diagnosis for this admission?: Yes (3) Left lower lobe pneumonia Qualifiers: Pneumonia type: due to unspecified organism Qualified Code(s): J18.1 - Lobar pneumonia, unspecified organism Is this a current diagnosis for this admission?: Yes - Plan Summary Plan Summary: Patient in the active stages of dying. He is comfortable. Continue palliative care only.
[2017-07-31] MEDS: LEVETIRACETAM 500 MG/NACL-ISO 500 MG/100 ML RTUPB IV SCH ×2 (13:50→20:57)
[2017-07-31] MEDS: SODIUM CHLORIDE NASAL SPRAY 44 ML NASL SCH ×3 (13:51→20:57)
--- NOTE | 2017-07-31 16:19 | PDOC PROGRESS REPORT ---
Subjective Progress Note for:: 07/31/17 Subjective:: Patient is a 66 y/o male with metastatic lung cancer. He was made palliative care. He has been resting comfortably. He continues to get his morphine every 3- 4 hours. His is at bedside and has no concerns at this time. The patient is well sedated and not speaking at this time Reason For Visit: NEUTROPENIC FEVER,PNEUMONIA Physical Exam Vital Signs: Temp Pulse Resp BP Pulse Ox 98.2 F 77 28 H 117/53 L 83 L 07/27/17 08:08 07/28/17 13:37 07/28/17 13:37 07/27/17 08:08 07/28/17 13:37 Intake & Output 07/30/17 07/31/17 08/01/17 06:59 06:59 06:59 Intake Total 150 100 Output Total 535 7 Balance -385 93 General appearance: PRESENT: no acute distress, well-developed, well-nourished Neck exam: ABSENT: carotid bruit, JVD, lymphadenopathy, thyromegaly Respiratory exam: PRESENT: clear to auscultation laura. ABSENT: rales, rhonchi, wheezes Cardiovascular exam: PRESENT: RRR. ABSENT: diastolic murmur, rubs, systolic murmur Neurological exam: PRESENT: CN II-XII grossly intact. ABSENT: alert, awake, oriented to person, oriented to place, oriented to time, oriented to situation, motor sensory deficit Results Laboratory Results: 07/27/17 04:40 07/27/17 04:40 Impressions: Chest X-Ray 07/26/17 09:24 IMPRESSION: Minimal acute parenchymal chains at the right base. Stable chronic changes in the left lung. Facial Bones CT 07/26/17 09:28 IMPRESSION: NO ACUTE FINDINGS. Head CT 07/26/17 09:28 IMPRESSION: No acute abnormality in the brain. EVIDENCE OF ACUTE STROKE: NO. Chest/Abdomen CTA 07/26/17 11:53 IMPRESSION: 1. No PE. 2. Increasing airspace disease the middle lobe and left lower lobe could represent pneumonia. Clinical correlation is needed. 3. Stable cavitary mass left upper lobe. New 1 cm nodule in the middle lobe. Assessment & Plan - Diagnosis (1) Palliative care encounter Is this a current diagnosis for this admission?: Yes Plan: treatment for all other issued has ceased. He has been made comfort care. His is at bedside. He will continue oxygen via NC for confort. continue morphine as needed. scopolamine patch in place (2) Acute respiratory failure with hypoxia Is this a current diagnosis for this admission?: Yes (3) Do not resuscitate Is this a current diagnosis for this admission?: Yes (4) Lung cancer Qualifiers: Laterality: right Lung location: upper lobe of lung Qualified Code(s): C34.11 - Malignant neoplasm of upper lobe, right bronchus or lung Is this a current diagnosis for this admission?: Yes (5) Pneumonia Is this a current diagnosis for this admission?: Yes (6) Hypertension Qualifiers: Hypertension type: essential hypertension Qualified Code(s): I10 - Essential (primary) hypertension Is this a current diagnosis for this admission?: Yes - Time Time Spent with patient: 25-34 minutes - Inpatient Certification Based on my medical assessment, after consideration of the patient's comorbidities, presenting symptoms, or acuity I expect that the services needed warrant INPATIENT care.: Yes I certify that my determination is in accordance with my understanding of Medicare's requirements for reasonable and necessary INPATIENT services [42 CFR 412.3e].: Yes Medical Necessity: Need for Pain Control
[2017-08-01] MEDS: LEVETIRACETAM 500 MG/NACL-ISO 500 MG/100 ML RTUPB IV SCH ×2 (08:55→20:57)
[2017-08-01] MEDS: SODIUM CHLORIDE NASAL SPRAY 44 ML NASL SCH ×4 (08:55→21:10)
[2017-08-01] MEDS: SCOPOLAMINE HYDROBROMIDE 1.5 MG PATCH.TD72 TD SCH (10:24)
--- NOTE | 2017-08-01 16:53 | PDOC PROGRESS REPORT ---
Subjective Progress Note for:: 08/01/17 Subjective:: Patient admitted with the currently undergoing palliative care metastatic lung cancer. He is comfortable. His is at his bedside Reason For Visit: NEUTROPENIC FEVER,PNEUMONIA Physical Exam Vital Signs: Temp Pulse Resp BP Pulse Ox 98.2 F 77 28 H 117/53 L 77 L 07/27/17 08:08 07/28/17 13:37 07/28/17 13:37 07/27/17 08:08 08/01/17 09:34 Intake & Output 07/31/17 08/01/17 08/02/17 06:59 06:59 06:59 Intake Total 100 100 Output Total 7 50 Balance 93 50 General appearance: PRESENT: no acute distress Head exam: PRESENT: atraumatic, normocephalic Ear exam: PRESENT: normal external ear exam Respiratory exam: PRESENT: clear to auscultation laura. ABSENT: rales, rhonchi, wheezes Cardiovascular exam: PRESENT: +S1, +S2 Rectal exam: PRESENT: deferred Neurological exam: ABSENT: alert Results Laboratory Results: 07/27/17 04:40 07/27/17 04:40 Impressions: Chest X-Ray 07/26/17 09:24 IMPRESSION: Minimal acute parenchymal chains at the right base. Stable chronic changes in the left lung. Facial Bones CT 07/26/17 09:28 IMPRESSION: NO ACUTE FINDINGS. Head CT 07/26/17 09:28 IMPRESSION: No acute abnormality in the brain. EVIDENCE OF ACUTE STROKE: NO. Chest/Abdomen CTA 07/26/17 11:53 IMPRESSION: 1. No PE. 2. Increasing airspace disease the middle lobe and left lower lobe could represent pneumonia. Clinical correlation is needed. 3. Stable cavitary mass left upper lobe. New 1 cm nodule in the middle lobe. Assessment & Plan - Time Time Spent with patient: Less than 15 minutes Medications reviewed and adjusted accordingly: Yes Anticipated discharge: Hospice Within: within 72 hours - Plan Summary Plan Summary: Acute respiratory failure with hypoxia Palliative care encounter Lung cancer of the right upper lobe Pneumonia likely postobstructive Hypertension
[2017-08-02] MEDS: MORPHINE SULFATE 10 MG/ML INJ IV PRN ×2 (03:02→22:53)
[2017-08-02] MEDS: LORAZEPAM INJ 2 MG/1 ML VIAL IV PRN ×2 (03:02→22:53)
[2017-08-02] MEDS: LEVETIRACETAM 500 MG/NACL-ISO 500 MG/100 ML RTUPB IV SCH ×2 (08:02→20:40)
[2017-08-02] MEDS: SODIUM CHLORIDE NASAL SPRAY 44 ML NASL SCH ×4 (08:03→21:52)
--- NOTE | 2017-08-02 08:08 | PDOC PROGRESS REPORT ---
Subjective Progress Note for:: 08/02/17 Subjective:: Patient remains unresponsive. Nurses report no significant change. Reason For Visit: NEUTROPENIC FEVER,PNEUMONIA Physical Exam Vital Signs: Temp Pulse Resp BP Pulse Ox 98.2 F 77 28 H 117/53 L 77 L 07/27/17 08:08 07/28/17 13:37 07/28/17 13:37 07/27/17 08:08 08/01/17 09:34 Intake & Output 08/01/17 08/02/17 08/03/17 06:59 06:59 06:59 Intake Total 100 200 Output Total 50 115 Balance 50 85 Exam: Patient appears comfortable. Shallow breathing remains. Pulse still strong. Results Laboratory Results: 07/27/17 04:40 07/27/17 04:40 Impressions: Chest X-Ray 07/26/17 09:24 IMPRESSION: Minimal acute parenchymal chains at the right base. Stable chronic changes in the left lung. Facial Bones CT 07/26/17 09:28 IMPRESSION: NO ACUTE FINDINGS. Head CT 07/26/17 09:28 IMPRESSION: No acute abnormality in the brain. EVIDENCE OF ACUTE STROKE: NO. Chest/Abdomen CTA 07/26/17 11:53 IMPRESSION: 1. No PE. 2. Increasing airspace disease the middle lobe and left lower lobe could represent pneumonia. Clinical correlation is needed. 3. Stable cavitary mass left upper lobe. New 1 cm nodule in the middle lobe. Assessment & Plan - Diagnosis (1) Lung cancer Qualifiers: Laterality: right Lung location: upper lobe of lung Qualified Code(s): C34.11 - Malignant neoplasm of upper lobe, right bronchus or lung Is this a current diagnosis for this admission?: Yes (2) Pancytopenia due to antineoplastic chemotherapy Is this a current diagnosis for this admission?: Yes (3) Left lower lobe pneumonia Qualifiers: Pneumonia type: due to unspecified organism Qualified Code(s): J18.1 - Lobar pneumonia, unspecified organism Is this a current diagnosis for this admission?: Yes - Plan Summary Plan Summary: Patient actively dying. Continue comfort measures only.
--- NOTE | 2017-08-02 15:19 | PDOC PROGRESS REPORT ---
Subjective Progress Note for:: 08/02/17 Subjective:: Patient admitted with the currently undergoing palliative care metastatic lung cancer. He is comfortable. His is at his bedside Reason For Visit: NEUTROPENIC FEVER,PNEUMONIA Physical Exam Vital Signs: Temp Pulse Resp BP Pulse Ox 98.2 F 77 28 H 117/53 L 77 L 07/27/17 08:08 07/28/17 13:37 07/28/17 13:37 07/27/17 08:08 08/01/17 09:34 Intake & Output 08/01/17 08/02/17 08/03/17 06:59 06:59 06:59 Intake Total 100 200 Output Total 50 115 Balance 50 85 General appearance: PRESENT: no acute distress - agonal respiration Head exam: PRESENT: atraumatic Mouth exam: PRESENT: dry mucosa Respiratory exam: PRESENT: accessory muscle use Neurological exam: PRESENT: other - unconscious Results Laboratory Results: 07/27/17 04:40 07/27/17 04:40 Impressions: Chest X-Ray 07/26/17 09:24 IMPRESSION: Minimal acute parenchymal chains at the right base. Stable chronic changes in the left lung. Facial Bones CT 07/26/17 09:28 IMPRESSION: NO ACUTE FINDINGS. Head CT 07/26/17 09:28 IMPRESSION: No acute abnormality in the brain. EVIDENCE OF ACUTE STROKE: NO. Chest/Abdomen CTA 07/26/17 11:53 IMPRESSION: 1. No PE. 2. Increasing airspace disease the middle lobe and left lower lobe could represent pneumonia. Clinical correlation is needed. 3. Stable cavitary mass left upper lobe. New 1 cm nodule in the middle lobe. Assessment & Plan - Time Time Spent with patient: Less than 15 minutes Anticipated discharge: Hospice Within: within 24 hours - Plan Summary Plan Summary: Acute respiratory failure with hypoxia Palliative care encounter Lung cancer of the right upper lobe Pneumonia likely postobstructive Hypertension
[2017-08-03] MEDS: MORPHINE SULFATE 10 MG/ML INJ IV PRN ×2 (05:42→08:35)
[2017-08-03] MEDS: LORAZEPAM INJ 2 MG/1 ML VIAL IV PRN (05:42)
[2017-08-03] MEDS: SODIUM CHLORIDE NASAL SPRAY 44 ML NASL SCH ×3 (08:36→17:53)
[2017-08-03] MEDS: LEVETIRACETAM 500 MG/NACL-ISO 500 MG/100 ML RTUPB IV SCH (11:00)
--- NOTE | 2017-08-03 12:46 | PDOC PROGRESS REPORT ---
Subjective Progress Note for:: 08/03/17 Subjective:: Patient admitted with the currently undergoing palliative care metastatic lung cancer. He is comfortable. His is at his bedside. he apparently had more secretions during the night despite Scopolamine patch Reason For Visit: NEUTROPENIC FEVER,PNEUMONIA Physical Exam Vital Signs: Temp Pulse Resp BP Pulse Ox 98.2 F 77 28 H 117/53 L 77 L 07/27/17 08:08 07/28/17 13:37 07/28/17 13:37 07/27/17 08:08 08/01/17 09:34 Intake & Output 08/02/17 08/03/17 08/04/17 06:59 06:59 06:59 Intake Total 200 100 Output Total 115 0 Balance 85 100 General appearance: PRESENT: no acute distress Respiratory exam: PRESENT: accessory muscle use, crackles, rales, rhonchi Cardiovascular exam: PRESENT: +S1, +S2 Neurological exam: PRESENT: other - unconscious Results Laboratory Results: 07/27/17 04:40 07/27/17 04:40 Impressions: Chest X-Ray 07/26/17 09:24 IMPRESSION: Minimal acute parenchymal chains at the right base. Stable chronic changes in the left lung. Facial Bones CT 07/26/17 09:28 IMPRESSION: NO ACUTE FINDINGS. Head CT 07/26/17 09:28 IMPRESSION: No acute abnormality in the brain. EVIDENCE OF ACUTE STROKE: NO. Chest/Abdomen CTA 07/26/17 11:53 IMPRESSION: 1. No PE. 2. Increasing airspace disease the middle lobe and left lower lobe could represent pneumonia. Clinical correlation is needed. 3. Stable cavitary mass left upper lobe. New 1 cm nodule in the middle lobe. Assessment & Plan - Time Time Spent with patient: Less than 15 minutes Medications reviewed and adjusted accordingly: Yes Anticipated discharge: Hospice Within: within 48 hours - Inpatient Certification Based on my medical assessment, after consideration of the patient's comorbidities, presenting symptoms, or acuity I expect that the services needed warrant INPATIENT care.: Yes - Plan Summary Plan Summary: Acute respiratory failure with hypoxia Palliative care encounter- Add Robinul to regimen Lung cancer of the right upper lobe Pneumonia likely postobstructive Hypertension
[2017-08-03] MEDS ORDERED: GLYCOPYRROLATE 1 MG TABLET PO SCH (14:00)
--- NOTE | 2017-08-03 18:37 | Death Summary ---
Summary Date : 08/03/17 Autopsy: No Resuscitation Status: Comfort Measures Only Primary Care Provider: Unknown Consulting Provider: Dr. 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 He has a history of poorly differentiated right-sided lung cancer with metastasis to the brain. He was also found to be neutropenic pancytopenic due to antineoplastic chemotherapy. Patient also had a left lower lobe pneumonia and was initially treated with antibiotics. Patient however was changed to a DO NOT RESUSCITATE with comfort care as he made very little progress in his treatment. Patient finally on August 03
== END 2017-08-03 17:00 | DRG 193 ==
LOC: ER 08:33 → EH 16:23 → UNDOADMIN 16:23 → 4N 20:11
PROVIDERS: ADMIT Internal Medicine; ATTEND Internal Medicine
DX: J18.9 Pneumonia, unspecified organism (principal); J96.01 Acute respiratory failure with hypoxia; C34.11 Malignant neoplasm of upper lobe, right bronchus or lung; C79.31 Secondary malignant neoplasm of brain; E87.1 Hypo-osmolality and hyponatremia; Z66 Do not resuscitate; Z51.5 Encounter for palliative care; I10 Essential (primary) hypertension; I25.10 Atherosclerotic heart disease of native coronary artery without angina pectoris; D70.1 Agranulocytosis secondary to cancer chemotherapy; T45.1X5A Adverse effect of antineoplastic and immunosuppressive drugs, initial encounter; R04.0 Epistaxis; S09.93XA Unspecified injury of face, initial encounter; W18.39XA Other fall on same level, initial encounter; Y93.9 Activity, unspecified; Y92.009 Unspecified place in unspecified non-institutional (private) residence as the place of occurrence of the external cause
CPT/HCPCS: 36415; 36600; 70450; 70486; 71045; 71275; 80048; 80053; 81001; 82803; 82962; 83605; 83735; 84100; 84443; 85025; 85610; 87040; 87086; 93005; 93010; 94640; 99291; J0692; J1100; J1953; J2060; J2270; J3370; J3490; J7060